=== PATIENT | male | born 1985 | race American Indian/Alaskan Native ===

== ENCOUNTER 2016-09-02 15:18 | Inpatient (IN) | payer OTHER ==
--- NOTE | 2016-09-02 16:05 | Emergency Department Report ---
Chief Complaint: Abdominal Pain Stated Complaint: ABD PAIN, HTN Time Seen by Provider: 09/02/16 16:01 - HPI History of Present Illness: 31 y/o male complain of abdominal pain x 1 day .pt complain of shortness of breath ,n/v /d .pt state is heart has been racing all day .pt state that he was hospitalized 3 weeks ago .pt current diaphoretic .pt denies any prior medical treatment .pt current on PD - ROS Review of Systems: per HPI - Exam Vital Signs: Vital Signs 09/02/16 15:45 Temperature 99.0 F Pulse Rate 83 Respiratory 22 Rate Blood Pressure 218/128 O2 Sat by Pulse 97 Oximetry Physical Exam: GENERAL: The patient is well-developed and well-nourished. Patient is in NAD. HENT: Normocephalic. Atraumatic. Patient has moist mucous membranes. Throat: No erythema, swelling or exudates. EYES: Extraocular motions are intact, PERRL NECK: Supple. No meningitic signs are noted. There is no adenopathy noted. CHEST/LUNGS: Clear to auscultation bilaterally. No wheezing, rales or rhonchi noted. There is no respiratory distress noted. HEART/CARDIOVASCULAR: Regular rate and rhythm. Normal S1 S2. No murmurs, rubs , clicks, or gallops. ABDOMEN: Abdomen distention noted . : Deferred. SKIN: pt diaphoretic . edema noted to lower extremities . NEURO: The patient is A&Ox3. The patient has no focal neurologic deficits. MUSCULOSKELETAL: There is no tenderness or deformity. There is no limitation range of motion. PSYCH: Pt has appropriate mood and affect. MSE screening note: Focused history and physical exam performed. Due to findings the following was ordered: ED Disposition for MSE Condition: Stable
[2016-09-02 16:44] LABS: Basophils % (Auto) 0.9 % (0.0-1.8); Eosinophils % (Auto) 0.4 % (0.0-4.3); Hematocrit 42.8 % (35.5-45.6); Hemoglobin 14.3 gm/dl (11.8-15.2); Mean Corpuscular HGB Conc 34 % (32-34); Mean Corpuscular Hemoglobin 30 pg (28-32); Mean Corpuscular Volume 88 fl (84-94); Platelet Count 350 K/mm3 (140-440); Red Blood Count 4.85 M/mm3 (3.65-5.03); Red Cell Distribution Width 13.3 % (13.2-15.2); White Blood Count 12.3 K/mm3 (4.5-11.0)
[2016-09-02 17:02] LABS: BUN/Creatinine Ratio 7.84; Calcium 6.9 mg/dL (8.4-10.2); Chloride 97.2 mmol/L (98-107); INR 0.98 (0.87-1.13); Potassium 5.1 mmol/L (3.6-5.0)
[2016-09-02 17:03] LABS: Creatine Kinase MB 3.3 ng/mL (0.0-4.0); Partial Thromboplastin Time 34.1 Sec. (24.2-36.6)
--- NOTE | 2016-09-02 21:02 | Emergency Department Report ---
ED General Adult HPI - General Chief complaint: Abdominal Pain Stated complaint: ABD PAIN, HTN Time Seen by Provider: 09/02/16 20:55 Source: patient Mode of arrival: Wheelchair Limitations: No Limitations - History of Present Illness Initial comments: Patient is a 31-year-old male with history of end-stage renal disease on peritoneal dialysis at home, atrial fibrillation on eliquis, hypertension, hyperlipidemia, morbid obesity presenting today because of abdominal pain and nausea vomiting. Patient states that at home his blood pressure was very high with systolic above 200s and he took clonidine 0.2 mg at home without improvement. He then started noticing some mild periumbilical abdominal pain and had multiple bouts of nonbloody nonbilious emesis. States he's had this in the past multiple times and its associated with his hypertension. He has had a peritoneal infection once with his dialysis in the past and he states this is nothing like that. He denies any current abdominal pain or nausea. Sates that he has checked with fluid in his abdomen and it is, clear 3. He took his metoprolol 100 mg, spironolactone, and 3 mg clonidine while being in the ER. Severity scale (0 -10): 3 - Related Data Home Medications Medication Instructions Recorded Confirmed Last Taken Calcitriol [Rocaltrol] 0.25 mcg PO QDAY 06/21/16 06/21/16 Unknown Calcium Acetate [Phoslo] 2 cap PO TID 06/21/16 06/21/16 Unknown Ergocalciferol [Vitamin D2] 1 cap PO QWEEK 06/21/16 06/21/16 Unknown Furosemide [Lasix TAB] 40 mg PO QDAY 06/21/16 06/28/16 06/27/16 16:00 Metoprolol [Lopressor TAB] 100 mg PO BID 06/21/16 06/28/16 06/28/16 08:00 NIFEdipine XL [Procardia Xl] 90 mg PO QDAY 06/21/16 06/28/16 06/27/16 16:00 Simvastatin [Zocor TAB] 40 mg PO QHS 06/21/16 06/28/16 06/27/16 11:45 Spironolactone [Aldactone] 50 mg PO BID 06/21/16 06/28/16 06/28/16 08:00 methylPREDNISolone [Medrol Dose 4 mg PO QDAY 06/21/16 06/21/16 Unknown Kaleb] Previous Rx's Medication Instructions Recorded Last Taken Type Ondansetron [Zofran TAB] 4 mg PO Q8HR PRN #20 tablet 06/28/16 Unknown Rx oxyCODONE /ACETAMINOPHEN [Percocet 1 tab PO Q4HR PRN #20 tab 06/28/16 Unknown Rx 5/325 mg] traMADol [Ultram 50 MG tab] 50 mg PO Q6HR PRN #20 tablet 06/28/16 Unknown Rx Apixaban [Eliquis] 5 mg PO Q12HR #60 tablet 08/01/16 Unknown Rx Clonidine HCl [Catapres] 0.3 mg PO BID #60 tablet 08/01/16 Unknown Rx Allergies Allergy/AdvReac Type Severity Reaction Status Date / Time No Known Allergies Allergy Verified 08/12/13 02:52 ED Review of Systems ROS: Stated complaint: ABD PAIN, HTN Other details as noted in HPI Comment: All other systems reviewed and negative Constitutional: denies: diaphoresis, fever, malaise, weakness ENT: denies: ear pain, congestion Respiratory: denies: cough, shortness of breath Cardiovascular: denies: chest pain Gastrointestinal: denies: abdominal pain, vomiting Skin: denies: rash Neurological: denies: headache ED Past Medical Hx - Past Medical History Hx Hypertension: Yes Hx Renal Disease: Yes (CKD STAGE 4) Hx Arthritis: Yes (GOUT) Hx Asthma: Yes Hx HIV: No Additional medical history: optic neuritis. - Surgical History Additional Surgical History: Recently diagnosed with optic neuritis. - Social History Smoking Status: Never Smoker - Medications Home Medications: Home Medications Medication Instructions Recorded Confirmed Last Taken Type Calcitriol [Rocaltrol] 0.25 mcg PO QDAY 06/21/16 06/21/16 Unknown History Calcium Acetate [Phoslo] 2 cap PO TID 06/21/16 06/21/16 Unknown History Ergocalciferol [Vitamin D2] 1 cap PO QWEEK 06/21/16 06/21/16 Unknown History Furosemide [Lasix TAB] 40 mg PO QDAY 06/21/16 06/28/16 06/27/16 16:00 History Metoprolol [Lopressor TAB] 100 mg PO BID 06/21/16 06/28/16 06/28/16 08:00 History NIFEdipine XL [Procardia Xl] 90 mg PO QDAY 06/21/16 06/28/16 06/27/16 16:00 History Simvastatin [Zocor TAB] 40 mg PO QHS 06/21/16 06/28/16 06/27/16 11:45 History Spironolactone [Aldactone] 50 mg PO BID 06/21/16 06/28/16 06/28/16 08:00 History methylPREDNISolone [Medrol Dose 4 mg PO QDAY 06/21/16 06/21/16 Unknown History Kaleb] Ondansetron [Zofran TAB] 4 mg PO Q8HR PRN #20 tablet 06/28/16 Unknown Rx oxyCODONE /ACETAMINOPHEN [Percocet 1 tab PO Q4HR PRN #20 tab 06/28/16 Unknown Rx 5/325 mg] traMADol [Ultram 50 MG tab] 50 mg PO Q6HR PRN #20 tablet 06/28/16 Unknown Rx Apixaban [Eliquis] 5 mg PO Q12HR #60 tablet 08/01/16 Unknown Rx Clonidine HCl [Catapres] 0.3 mg PO BID #60 tablet 08/01/16 Unknown Rx ED Physical Exam - General Limitations: No Limitations General appearance: alert - Head Head exam: Present: atraumatic - Eye Eye exam: Present: normal appearance - ENT ENT exam: Present: normal exam - Respiratory Respiratory exam: Present: normal lung sounds bilaterally. Absent: respiratory distress - Cardiovascular Cardiovascular Exam: Present: regular rate, normal rhythm - GI/Abdominal GI/Abdominal exam: Present: soft, distended. Absent: tenderness, guarding, rebound, rigid - External exam: Present: normal external exam ED Course Vital Signs 09/02/16 09/02/16 09/02/16 15:45 20:23 21:22 Temperature 99.0 F 98.3 F Pulse Rate 83 83 98 H Respiratory 22 20 Rate Blood Pressure 218/128 203/107 Blood Pressure 233/181 [Right] O2 Sat by Pulse 97 100 Oximetry 09/02/16 09/03/16 09/03/16 22:41 01:08 01:28 Temperature Pulse Rate 78 73 100 H Respiratory 16 16 Rate Blood Pressure 220/162 Blood Pressure 170/108 203/150 [Right] O2 Sat by Pulse 95 97 Oximetry 09/03/16 02:00 Temperature Pulse Rate 79 Respiratory 16 Rate Blood Pressure Blood Pressure 197/140 [Right] O2 Sat by Pulse 95 Oximetry - Reevaluation(s) Reevaluation #1: 09/02/16 22:44 Pressure improved to 170s over 110s after 20 mg IV labetalol. Repeat examination abdomen still nontender. However patient is requesting some pain medication. 09/02/16 22:45 Reevaluation #2: 09/03/16 01:21 His blood pressure increased again to a systolic of 200-210, patient is again having abdominal pain, ordered another dose of labetalol and morphine. Reevaluation #3: 09/03/16 01:40 Patient had a bout of emesis after receiving morphine. We'll give a dose of Zofran. ED Medical Decision Making - Lab Data Result diagrams: 09/02/16 16:20 09/02/16 16:20 - Medical Decision Making labs preordered, show hypocalcemia lactic acid ordered to look for ischemia of the abdomen labetalol IV 20 mg EKG shows normal sinus rhythm without any ST-T changes Labs show hypocalcemia. IV calcium ordered. That the patient has no abdominal tenderness, no fever and states that he has clear fluid from his abdomen the likelihood of a peritonitis is low. A lactic acid was also drawn to look for any signs of mesenteric ischemia. The lactic acid was normal. No signs of end organ damage. Will observe for some time and do a CT scan of the abdomen and pelvis Critical care attestation.: If time is entered above; I have spent that time in minutes in the direct care of this critically ill patient, excluding procedure time. ED Disposition Clinical Impression: Hypertensive urgency, Hypocalcemia, Hyperkalemia Abdominal pain Qualifiers: Abdominal location: upper abdomen, unspecified Qualified Code(s): R10.10 - Upper abdominal pain, unspecified Disposition: OP ADMITTED IP TO THIS HOSP Is pt being admited?: Yes Does the pt Need Aspirin: No Condition: Serious Referrals: PRIMARY CARE,MD [Primary Care Provider] - 3-5 Days Time of Disposition: 02:10 (Spoke to Dr. Pacheco, will admit)
[2016-09-02] MEDS ORDERED: NORMODYNE IV ONE (21:07)
[2016-09-02] MEDS ORDERED: CALCIUM CHLORIDE IVP ONE (21:13)
[2016-09-02] MEDS ORDERED: CALCIUM GLUCONATE 1,000 MG in NACL 0.9% 100 ML IV ONE (21:55)
[2016-09-02] MEDS ORDERED: CALCIUM CHLORIDE IV ONE (22:00)
[2016-09-02] MEDS ORDERED: PERCOCET 5/325 PO ONE (22:27)
--- NOTE | 2016-09-02 22:52 | Admit Criteria Form ---
Admission Criteria Documentation: ABDOMINAL PAIN Clinical Indications for Admission to Inpatient Care (Place 'X' for any and all applicable criteria): Admission is indicated for ANY ONE of the following(1)(2)(3)(4)(5): [ ]I. Inpatient admission required rather than observation care (Also use Abdominal Pain: Observation Care, as appropriate) because of ANY ONE of the following: [ ]a) Severe pain requiring acute inpatient management [ ]b) Identification of etiology/finding that requires inpatient care (eg, aortic dissection, free air) [ ]c) Absent bowel sounds with complete ileus(6) [ ]d) Suspected toxic megacolon [ ]e) Severe electrolyte abnormalities requiring inpatient care [ ]f) High fever or infection requiring inpatient admission as indicated by ANY ONE of following(7)(8): [ ] i) Appropriate outpatient or observational care antimicrobial treatment unavailable, not effective, or not feasible [ ] ii) Documented bacteremia [ ] iii) Temperature > 104.9 degrees F (oral) [ ] iv) T >103.1 F (oral) or < 96.8 F(rectal) that does not respond to all emergency treatment measures [ ]g) Signs of intestinal obstruction [B] [ ]h) Hemodynamic instability [ ]i) IV fluid to replace significant ongoing losses (greater than 3 L/m2 per day) (12)(13) [ ]j) Percutaneous or open drainage (eg, abscess, biliary tract ) procedures [ ]k) Parenteral nutrition regimen that must be implemented on inpatient basis [ ]l) Other condition,treatment or monitoring requiring inpatient admission. [ ]II. Peritoneal signs present [ ]III. Surgery needed that cannot be performed on an ambulatory basis. [ ]IV. Evaluation requires patient to not eat or drink for extended period ( eg, more than 24 hours). [ ]V. Contraindications and/or Inappropriate clinical situations for Observational Care in patients with abdominal pain, when ANY ONE of the following is required: [ ]a) Thorough evaluation is required to prevent catastrophic events due to delays in diagnosing (e.g.Mesenteric ischemia) 1,3 [ ]b) Patient with severe pathology or with chronic symptoms unlikely to improve in the ED stay (3) [X ]. General contraindications and/or Inappropriate clinical situations for Observational Care in patients with abdominal pain, when ANY ONE of the following is required: [ ]a) Prediction of prolongation of LOS based on ANY ONE of the following may be considered as a contraindication for observational care 2, 3, 4, 5, 6, 7, 8, 9, 10, 11 [ ]i) Age > 65 yrs. [ ]ii) Patient arriving by ambulance [ ]iii) Patient with high acuity [ ]iv) Patient requiring vital sign monitoring [ ]v) Patient on IV medication [X ]b) Systolic blood pressures 180mmHg 3,12 [ ]c) Patient with altered mental status including delirium and other alteration of consciousness, (3) [ ]d) Patient whose discharge disposition will be to a penitentiary home or rehabilitation home should not be managed in Emergency Department Observation Unit. CMS rule requires 3 days hospital stay before such placement.3,13 [ ]e) Patient with failure to thrive due to broad array of etiologies 3,16,17 [ ]f) Inability to ambulate 3,14 Extended stay beyond goal length of stay may be needed for(2)(3): [ ]a) Persistent abdominal pain with suspected intra-abdominal process [ ]b) Diagnosed condition requiring continued stay (e.g., pancreatitis, complicated diverticulitis) [ ]c) Surgery (e.g., colectomy) The original [facility] content created by [employer] has been revised. The portions of the content which have been revised are identified through the use of italic text or in bold, and [facility] has neither reviewed nor approved the modified material.All other unmodified content is copyright [facility]. Please see references footnoted in the original [facility] edition 2016 Admission Criteria Met: Yes
--- NOTE | 2016-09-03 00:38 | Cat Scan Report ---
FINAL REPORT EXAM: CT ABDOMEN PELVIS WO CON HISTORY: abd pain, peritoneal dialysis TECHNIQUE: CT abdomen and pelvis without contrast. Multiplanar reformations. PRIORS: 11/26/2015 FINDINGS: Solid organ evaluation limited from lack of IV contrast. Bowel evaluation limited from lack of oral contrast. Bibasilar atelectasis. No free air seen. Liver shows no significant abnormality. Normal-appearing biliary tree and gallbladder. Spleen shows no significant abnormality. Moderate ascites noted. Small pericardial effusion. Moderate cardiac enlargement. Adrenal glands show no significant abnormality. Kidneys show no significant abnormality. Pancreas shows no significant abnormality. Abdominal aorta is non-aneurysmal. There is a peritoneal dialysis catheter in the pelvis. No bowel obstruction. Appendix is not seen. No ureteral calculus seen on either side. IMPRESSION: 1. Moderate ascites presumably related to peritoneal dialysis. Peritoneal dialysis catheter noted in the pelvis. 2. Small pericardial effusion. Moderate cardiac enlargement.
[2016-09-03] MEDS ORDERED: NORMODYNE IV ONE (01:16)
[2016-09-03] MEDS ORDERED: MORPHINE IV ONE ×2 (01:20→05:51)
[2016-09-03 01:39] LABS: Albumin/Globulin Ratio 0.9 %; Alkaline Phosphatase 59 units/L (35-129); Bilirubin,Total 0.2 mg/dL (0.1-1.2); Total Protein 6.2 g/dL (6.3-8.2)
[2016-09-03] MEDS ORDERED: ZOFRAN IV ONE (01:39)
[2016-09-03 01:40] LABS: Alanine Aminotransferase < 5 units/L (7-56); Bilirubin,Direct < 0.2 mg/dL (0-0.2)
--- NOTE | 2016-09-03 02:42 | History and Physical Report ---
History of Present Illness Date of examination: 09/03/16 Date of admission: 09/03/15 Chief complaint: Abdominal pain History of present illness: Patient is a 31-year-old male with history of end-stage renal disease on peritoneal dialysis at home, atrial fibrillation on eliquis, hypertension, hyperlipidemia, morbid obesity presenting today because of abdominal pain and nausea vomiting. Patient stated that at home his blood pressure was very high with systolic above 200s and he took clonidine 0.2 mg at home without improvement. He then started noticing some mild periumbilical abdominal pain and had multiple bouts of nonbloody nonbilious emesis. Stated he's had this in the past multiple times and its associated with his hypertension. He has had a peritoneal infection once with his dialysis in the past and he states this is nothing like that. He denies any current abdominal pain or nausea. The PD catheter is not cloudy. He took his metoprolol 100 mg, spironolactone, and .3 mg clonidine while being in the ER. REVIEW OF SYSTEMS: GENERAL: no weight change, no fatigue, no fever HEAD: no head ache EYES: no blurry vision, no acute visual loss EARS: no hearing loss, no discharge, no earache NOSE: no stuffiness, no sneezing, no discharge MOUTH, THROAT AND NECK: no bleeding gums, no sore throat, no swollen neck CARDIAC: no palpitations, no dyspnea on exertion, no orthopnea, no PND, no edema , no chest pain RESPIRATORY: no shortness of breath, no wheeze, no cough, no sputum, no hemoptysis, no asthma GI: no decreased appetite, no dysphagia, no diarrhea, no constipation URINARY: no change in frequency, no urgency, no polyuria, no hematuria, no incontinence MUSCULOSKELETAL: no muscle weakness, no pain, no joint stiffness NEUROLOGIC: no loss of sensation/numbness, no tingling, no tremors, no weakness/ paralysis HEMATOLOGIC: no anemia, no easy bruising SKIN: no rashes ENDOCRINE: no heat/cold intolerance, no polyuria, no polydipsia, no thyroid problems, no diabetes PSYCHIATRIC: no anxiety, no depression, no suicidal ideations Past History Past Medical History: hypertension, renal failure, other (obesity) Past Surgical History: Other (PD catheter placement) Social history: full code. denies: smoking, alcohol abuse, prescription drug abuse, IV drug use Family history: hypertension Medications and Allergies Allergies Allergy/AdvReac Type Severity Reaction Status Date / Time No Known Allergies Allergy Verified 08/12/13 02:52 Home Medications Medication Instructions Recorded Confirmed Last Taken Type Calcitriol [Rocaltrol] 0.25 mcg PO QDAY 06/21/16 06/21/16 Unknown History Calcium Acetate [Phoslo] 2 cap PO TID 06/21/16 06/21/16 Unknown History Ergocalciferol [Vitamin D2] 1 cap PO QWEEK 06/21/16 06/21/16 Unknown History Furosemide [Lasix TAB] 40 mg PO QDAY 06/21/16 06/28/16 06/27/16 16:00 History Metoprolol [Lopressor TAB] 100 mg PO BID 06/21/16 06/28/16 06/28/16 08:00 History NIFEdipine XL [Procardia Xl] 90 mg PO QDAY 06/21/16 06/28/16 06/27/16 16:00 History Simvastatin [Zocor TAB] 40 mg PO QHS 06/21/16 06/28/16 06/27/16 11:45 History Spironolactone [Aldactone] 50 mg PO BID 06/21/16 06/28/16 06/28/16 08:00 History methylPREDNISolone [Medrol Dose 4 mg PO QDAY 06/21/16 06/21/16 Unknown History Kaleb] Ondansetron [Zofran TAB] 4 mg PO Q8HR PRN #20 tablet 06/28/16 Unknown Rx oxyCODONE /ACETAMINOPHEN [Percocet 1 tab PO Q4HR PRN #20 tab 06/28/16 Unknown Rx 5/325 mg] traMADol [Ultram 50 MG tab] 50 mg PO Q6HR PRN #20 tablet 06/28/16 Unknown Rx Apixaban [Eliquis] 5 mg PO Q12HR #60 tablet 08/01/16 Unknown Rx Clonidine HCl [Catapres] 0.3 mg PO BID #60 tablet 08/01/16 Unknown Rx Active Meds: Active Medications Apixaban (Eliquis) 5 mg PO Q12HR EZRA Calcitriol (Rocaltrol) 0.25 mcg PO QDAY EZRA Calcium Acetate (Phoslo) mg PO TID EZRA Ergocalciferol (Vitamin D2) unit PO QWEEK EZRA Furosemide (Lasix) 40 mg PO QDAY EZRA Metoprolol Tartrate (Lopressor) 100 mg PO BID EZRA Miscellaneous Medication (Clonidine Hcl [Catapres]) 0.3 mg PO BID EZRA Nifedipine (Procardia Xl) 90 mg PO QDAY EZRA Oxycodone/Acetaminophen (Percocet 5/325) 1 tab PO Q4HR PRN PRN Reason: Pain , Severe (7-10) Simvastatin (Zocor) 40 mg PO QHS EZRA Spironolactone (Aldactone) 50 mg PO BID EZRA Exam - Physical Exam Narrative exam: Not in cardiopulmonary distress. The patient is obese. Vital signs as documented. Head exam is unremarkable. No scleral icterus . Neck is without jugular venous distension, thyromegaly, or carotid bruits. Lungs are clear to auscultation. Cardiac exam reveals regular rate and Rhythm. First and second heart sounds normal. No murmurs, rubs or gallops. Abdominal exam reveals normal bowel sounds, no masses, no organomegaly and no aortic enlargement. Extremities are nonedematous and both femoral and pedal pulses are normal. [place]: Alert and oriented 3. No focal weakness. - Constitutional Vitals: Temp Pulse Resp BP Pulse Ox 98.3 F 79 16 197/140 95 09/02/16 20:23 09/03/16 02:00 09/03/16 02:00 09/03/16 02:00 09/03/16 02:00 Results - Labs CBC & Chem 7: 09/02/16 16:20 09/02/16 16:20 Labs: Laboratory Last Values WBC 12.3 K/mm3 (4.5-11.0) H 09/02/16 16:20 RBC 4.85 M/mm3 (3.65-5.03) 09/02/16 16:20 Hgb 14.3 gm/dl (11.8-15.2) 09/02/16 16:20 Hct 42.8 % (35.5-45.6) 09/02/16 16:20 MCV 88 fl (84-94) 09/02/16 16:20 MCH 30 pg (28-32) 09/02/16 16:20 MCHC 34 % (32-34) 09/02/16 16:20 RDW 13.3 % (13.2-15.2) 09/02/16 16:20 Plt Count 350 K/mm3 (140-440) 09/02/16 16:20 Lymph % (Auto) 12.8 % (13.4-35.0) L 09/02/16 16:20 [place] % (Auto) 6.4 % (0.0-7.3) 09/02/16 16:20 Eos % (Auto) 0.4 % (0.0-4.3) 09/02/16 16:20 Baso % (Auto) 0.9 % (0.0-1.8) 09/02/16 16:20 Lymph # 1.6 K/mm3 (1.2-5.4) 09/02/16 16:20 [place] # 0.8 K/mm3 (0.0-0.8) 09/02/16 16:20 Eos # 0.1 K/mm3 (0.0-0.4) 09/02/16 16:20 Baso # 0.1 K/mm3 (0.0-0.1) 09/02/16 16:20 Seg Neutrophils % 79.5 % (40.0-70.0) H 09/02/16 16:20 Seg Neutrophils # 9.8 K/mm3 (1.8-7.7) H 09/02/16 16:20 PT 12.9 Sec. (12.2-14.9) 09/02/16 16:20 INR 0.98 (0.87-1.13) 09/02/16 16:20 APTT 34.1 Sec. (24.2-36.6) 09/02/16 16:20 Sodium 139 mmol/L (137-145) 09/02/16 16:20 Potassium 5.1 mmol/L (3.6-5.0) H 09/02/16 16:20 Chloride 97.2 mmol/L (98-107) L 09/02/16 16:20 Carbon Dioxide 24 mmol/L (22-30) 09/02/16 16:20 Anion Gap 23 mmol/L 09/02/16 16:20 BUN 62 mg/dL (9-20) H 09/02/16 16:20 Creatinine 7.9 mg/dL (0.8-1.5) H 09/02/16 16:20 Estimated GFR 10 ml/min 09/02/16 16:20 BUN/Creatinine Ratio 7.84 % 09/02/16 16:20 Glucose 138 mg/dL (75-100) H 09/02/16 16:20 Lactic Acid 0.9 mmol/L (0.7-2.0) 09/02/16 21:27 Calcium 6.9 mg/dL (8.4-10.2) L 09/02/16 16:20 Total Bilirubin 0.2 mg/dL (0.1-1.2) 09/02/16 16:20 Direct Bilirubin < 0.2 mg/dL (0-0.2) 09/02/16 16:20 Indirect Bilirubin 0.0 mg/dL 09/02/16 16:20 AST 12 units/L (5-40) 09/02/16 16:20 ALT < 5 units/L (7-56) L 09/02/16 16:20 Alkaline Phosphatase 59 units/L (35-129) 09/02/16 16:20 Total Creatine Kinase 133 units/L (55-170) 09/02/16 16:20 CK-MB (CK-2) 3.3 ng/mL (0.0-4.0) 09/02/16 16:20 CK-MB (CK-2) Rel Index 2.4 (0-4) 09/02/16 16:20 Troponin T 0.013 ng/mL (0.00-0.029) 09/02/16 16:20 Total Protein 6.2 g/dL (6.3-8.2) L 09/02/16 16:20 Albumin 3.0 g/dL (3.9-5) L 09/02/16 16:20 Albumin/Globulin Ratio 0.9 % 09/02/16 16:20 Lipase 71 units/L (13-60) H 09/02/16 16:20 - Imaging and Cardiology CT scan - abdomen: image reviewed (moderate ascites, PD cathetr in place) US - abdomen: image reviewed Assessment and Plan Assessment and plan: Hypertensive urgency - restart his home medications - Hydralazine PRN Abdominal Pain - CT abdomen and pelvis normal - Pain control ESRD on PD - Nephrology consult Paroxysmal A.fib - continue anticoagulation - Continue his home meds - Cardiology recently evaluated him Advance Directives: Yes VTE prophylaxis?: Chemical Plan of care discussed with patient/family: Yes
[2016-09-03] MEDS ORDERED: LOPRESSOR ONE ×2 (03:18→07:38)
[2016-09-03] MEDS: APRESOLINE IV PRN (03:45)
[2016-09-03] MEDS: PERCOCET 5/325 PO PRN ×3 (04:15→21:53)
[2016-09-03] MEDS: LOPRESSOR PO SCH ×4 (04:46→21:50)
[2016-09-03] MEDS ORDERED: HEPARIN SUB-Q SCH (06:00)
[2016-09-03] MEDS ORDERED: CARDENE DRIP 40 MG/200 ML 200 ML ONE (06:47)
[2016-09-03] MEDS: CARDENE DRIP 40 MG/200 ML 200 ML IV SCH (07:03)
[2016-09-03] MEDS ORDERED: LASIX ONE (07:37)
[2016-09-03] MEDS ORDERED: CATAPRES ONE ×2 (07:38)
[2016-09-03] MEDS: CATAPRES PO SCH ×4 (07:43→09:32)
[2016-09-03] MEDS: LASIX PO SCH ×2 (07:44→09:31)
[2016-09-03] MEDS: ALDACTONE PO SCH ×2 (10:00→21:49)
[2016-09-03] MEDS: ELIQUIS PO SCH ×2 (10:00→21:51)
--- NOTE | 2016-09-03 10:37 | Event Note ---
Date: 09/03/16 Patient seen and examined. This is a follow-up from an admission earlier this morning. Will continue plan as outlined in H&P.
--- NOTE | 2016-09-03 11:02 | Consultation ---
History of Present Illness - Reason for Consult Consult date: 09/03/16 end stage renal disease - History of Present Illness patient with h/o ESRD on PD currently on CAPD times a day, came to the ED for SOB, heart racing, abdominal pain with nausea and vomiting, patient mentioned having similar sx in the past when his blood pressure is high, he said he is complaint with his meds, in the ED he was noted to have very high BP and was started on Nicardin gtt, when seen he started to feel better but remains to have abd pain. renal consult requested for PD management Past History Past Medical History: ESRD, hypertension, renal failure, other (obesity) Past Surgical History: Other (PD catheter placement) Social history: full code. denies: smoking, alcohol abuse, prescription drug abuse, IV drug use Family history: hypertension Medications and Allergies Allergies Allergy/AdvReac Type Severity Reaction Status Date / Time No Known Allergies Allergy Verified 08/12/13 02:52 Home Medications Medication Instructions Recorded Confirmed Last Taken Type Calcitriol [Rocaltrol] 0.25 mcg PO QDAY 06/21/16 09/03/16 09/02/16 History Calcium Acetate [Phoslo] 2 cap PO TID 06/21/16 09/03/16 09/02/16 History Ergocalciferol [Vitamin D2] 1 cap PO QWEEK 06/21/16 09/03/16 09/02/16 History Furosemide [Lasix TAB] 40 mg PO QDAY 06/21/16 09/03/16 09/02/16 History Metoprolol [Lopressor TAB] 100 mg PO BID 06/21/16 09/03/16 09/02/16 History NIFEdipine XL [Procardia Xl] 90 mg PO QDAY 06/21/16 09/03/16 09/02/16 History Simvastatin [Zocor TAB] 40 mg PO QHS 06/21/16 09/03/16 09/02/16 History Spironolactone [Aldactone] 50 mg PO BID 06/21/16 09/03/16 09/02/16 History methylPREDNISolone [Medrol Dose 4 mg PO QDAY 06/21/16 09/03/16 Unknown History Kaleb] Ondansetron [Zofran TAB] 4 mg PO Q8HR PRN #20 tablet 06/28/16 09/03/16 09/02/16 Rx oxyCODONE /ACETAMINOPHEN [Percocet 1 tab PO Q4HR PRN #20 tab 06/28/16 09/03/16 Unknown Rx 5/325 mg] Apixaban [Eliquis] 5 mg PO Q12HR #60 tablet 08/01/16 09/03/16 09/02/16 Rx Clonidine HCl [Catapres] 0.3 mg PO BID #60 tablet 08/01/16 09/03/16 09/02/16 Rx Active Meds: Active Medications Apixaban (Eliquis) 5 mg PO Q12HR [facility] Calcitriol (Rocaltrol) 0.25 mcg PO QDAY [facility]ZRA Calcium Acetate (Phoslo) 1,334 mg PO TIDWM EZRA Ergocalciferol (Vitamin D2) 50,000 unit PO Mo EZRA Furosemide (Lasix) 40 mg PO QDAY [facility] Last Admin: 09/03/16 09:31 Dose: Not Given Hydralazine HCl (Apresoline) 20 mg IV Q4H PRN PRN Reason: Hypertension Last Admin: 09/03/16 03:45 Dose: 20 mg Nicardipine/Sodium Chloride (Cardene Drip 40 Mg/200 Ml) 200 mls @ 25 mls/hr IV TITR EZRA; 5 MG/HR PRN Reason: Protocol Last Titration: 09/03/16 10:05 Dose: 7.5 mg/hr Lactulose (Cephulac) 20 gm PO Q6HR [facility] Metoprolol Tartrate (Lopressor) 100 mg PO BID [facility] Last Admin: 09/03/16 09:32 Dose: Not Given Nifedipine (Procardia Xl) 90 mg PO QDAY [facility] Oxycodone/Acetaminophen (Percocet 5/325) 1 tab PO Q4HR PRN PRN Reason: Pain , Severe (7-10) Last Admin: 09/03/16 04:15 Dose: 1 tab Peritoneal Dialysis Solution (Dianeal Low Calcium W/2.5% Dextrose) 2,000 ml IP Q6HR [facility] Simvastatin (Zocor) 40 mg PO QHS [facility] Spironolactone (Aldactone) 50 mg PO BID [facility] Review of Systems All systems: negative (abd pain, SOB, nausea and vomiting) Exam - Vital Signs Vital signs: Vital Signs Temp Pulse Resp BP Pulse Ox 99.0 F 83 22 218/128 97 09/02/16 15:45 09/02/16 15:45 09/02/16 15:45 09/02/16 15:45 09/02/16 15:45 - General Appearance General appearance: well-developed, well-nourished, obese EENT: ATNC, PERRL, mucous membranes moist Neck: Present: neck supple. Absent: Bruit Respiratory: Clear to Ascultation Heart: tachycardia Gastrointestinal: Present: normoactive bowel sounds, tenderness, obese. Absent : distended Integumentary: no rash, warm and dry Neurologic: no focal deficit, no asterixis, alert and oriented x3 Musculoskeletal: Present: other (no edema in BLE) Psychiatric: mood/affect appropriate, cooperative Results - Lab Results 09/02/16 16:20 09/02/16 16:20 Most recent lab results Calcium 6.9 mg/dL (8.4-10.2) L 09/02/16 16:20 Assessment and Plan (1) ESRD on PD secondary to HTN nephrosclerosis will restart PD with 2.5% dextrose 2000 cc 4 times a day will send PD fluid for cell count, cultures, and gram stain to r/o peritonitis mentions h/o constipation, will start lactulose 20 g Q6H renally dose mds strict I&O daily weights (2) HTN urgency cont nicardin gtt restarted on aldactone, lasic and metoprolol would avoud clonidine use, possible compliance issues, sudden stop of clonidine may cause rebound hypertension would restart Nifedipine soon to help tapering down nicardin gtt (3) Secondary hyperparathyroidsim will check phos in AM cont calcitriol (4) abdominal pain PD fluid studies as above Lactulose for constipation as above
[2016-09-03] MEDS: CEPHULAC PO SCH ×2 (13:20→18:25)
[2016-09-03] MEDS: PHOSLO PO SCH ×2 (13:20→16:58)
[2016-09-03] MEDS: DIANEAL LOW CALCIUM W/2.5% DEXTROSE IP SCH ×2 (13:33→18:20)
--- NOTE | 2016-09-03 14:04 | Consultation ---
History of Present Illness Consult date: 09/03/16 Reason for consult: obstructive sleep apnea, other (Abdominal pain, nausea, vomiying.) History of present illness: Patient is a 31-year-old male Morbidly Obese with history of end-stage renal disease on peritoneal dialysis at home, atrial fibrillation on eliquis, hypertension, hyperlipidemia presented to the emergency room today with a complaint of abdominal pain and nausea vomiting. Patients blood pressure running high at home. Patient took Clonidine with out much improvement. He then started noticing some mild periumbilical abdominal pain and had multiple bouts of no emesis. Stated he's had this in the past multiple times and its associated with his hypertension. He has had a peritoneal infection once with his dialysis in the past and he states this is nothing like that. The PD catheter is not cloudy. He took his metoprolol 100 mg, spironolactone, and .3 mg clonidine while being in the ER. Patient started on cardene drip. Patients blood pressure coming down.Patient also receiving peritoneal dialysis. Patient denies Adominal pain or nausea at this time. Patient resting on room air. O2 satuaration. 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 Patient has history of sleep apnea. He does not use CPAP at home. Past History Past Medical History: ESRD, hypertension, renal failure, other (obesity) Past Surgical History: Other (PD catheter placement) Social history: full code. denies: smoking, alcohol abuse, prescription drug abuse, IV drug use Family history: hypertension Medications and Allergies Allergies Allergy/AdvReac Type Severity Reaction Status Date / Time No Known Allergies Allergy Verified 08/12/13 02:52 Home Medications Medication Instructions Recorded Confirmed Last Taken Type Calcitriol [Rocaltrol] 0.25 mcg PO QDAY 06/21/16 09/03/16 09/02/16 History Calcium Acetate [Phoslo] 2 cap PO TID 06/21/16 09/03/16 09/02/16 History Ergocalciferol [Vitamin D2] 1 cap PO QWEEK 06/21/16 09/03/16 09/02/16 History Furosemide [Lasix TAB] 40 mg PO QDAY 06/21/16 09/03/16 09/02/16 History Metoprolol [Lopressor TAB] 100 mg PO BID 06/21/16 09/03/16 09/02/16 History NIFEdipine XL [Procardia Xl] 90 mg PO QDAY 06/21/16 09/03/16 09/02/16 History Simvastatin [Zocor TAB] 40 mg PO QHS 06/21/16 09/03/16 09/02/16 History Spironolactone [Aldactone] 50 mg PO BID 06/21/16 09/03/16 09/02/16 History methylPREDNISolone [Medrol Dose 4 mg PO QDAY 06/21/16 09/03/16 Unknown History Kaleb] Ondansetron [Zofran TAB] 4 mg PO Q8HR PRN #20 tablet 06/28/16 09/03/16 09/02/16 Rx oxyCODONE /ACETAMINOPHEN [Percocet 1 tab PO Q4HR PRN #20 tab 06/28/16 09/03/16 Unknown Rx 5/325 mg] Apixaban [Eliquis] 5 mg PO Q12HR #60 tablet 08/01/16 09/03/16 09/02/16 Rx Clonidine HCl [Catapres] 0.3 mg PO BID #60 tablet 08/01/16 09/03/16 09/02/16 Rx Active Meds: Active Medications Apixaban (Eliquis) 5 mg PO Q12HR [facility] Calcitriol (Rocaltrol) 0.25 mcg PO QDAY [facility] Calcium Acetate (Phoslo) 1,334 mg PO TIDWM [facility] Last Admin: 09/03/16 13:20 Dose: 1,334 mg Ergocalciferol (Vitamin D2) 50,000 unit PO Mo [facility] Furosemide (Lasix) 40 mg PO QDAY [facility] Last Admin: 09/03/16 09:31 Dose: Not Given Hydralazine HCl (Apresoline) 20 mg IV Q4H PRN PRN Reason: Hypertension Last Admin: 09/03/16 03:45 Dose: 20 mg Nicardipine/Sodium Chloride (Cardene Drip 40 Mg/200 Ml) 200 mls @ 25 mls/hr IV TITR [facility]ZRA; 5 MG/HR PRN Reason: Protocol Last Titration: 09/03/16 11:52 Dose: 15 mg/hr Lactulose (Cephulac) 20 gm PO Q6HR [facility] Last Admin: 09/03/16 13:20 Dose: 20 gm Metoprolol Tartrate (Lopressor) 100 mg PO BID [facility] Last Admin: 09/03/16 09:32 Dose: Not Given Nifedipine (Procardia Xl) 90 mg PO QDAY [facility] Oxycodone/Acetaminophen (Percocet 5/325) 1 tab PO Q4HR PRN PRN Reason: Pain , Severe (7-10) Last Admin: 09/03/16 04:15 Dose: 1 tab Peritoneal Dialysis Solution (Dianeal Low Calcium W/2.5% Dextrose) 2,000 ml IP Q6HR [facility] Last Admin: 09/03/16 13:33 Dose: 2,000 ml Simvastatin (Zocor) 40 mg PO QHS [facility] Spironolactone (Aldactone) 50 mg PO BID [facility] Review of Systems All systems: negative Physical Examination Vital signs: Vital Signs Temp Pulse Resp BP Pulse Ox 99.0 F 83 22 218/128 97 09/02/16 15:45 09/02/16 15:45 09/02/16 15:45 09/02/16 15:45 09/02/16 15:45 General appearance: no acute distress, alert Eyes: non-icteric ENT: oropharynx moist Neck: supple, no JVD Cardiovascular: regular rate and rhythm Gastrointestinal: normoactive bowel sounds, soft, non-tender Integumentary: normal Extremities: no cyanosis, other (Trace edema.) Musculoskeletal: no deformities Gait: other (Can not assess at this time.) normal mental status, non-focal exam, pupils equal and round, CN II-XII normal mood appropriate Results - Laboratory Findings CBC and BMP: 09/02/16 16:20 09/02/16 16:20 PT/INR, D-dimer PT 12.9 Sec. (12.2-14.9) 09/02/16 16:20 INR 0.98 (0.87-1.13) 09/02/16 16:20 Assessment and Plan Patient is a 31-year-old male Morbidly Obese with history of end-stage renal disease on peritoneal dialysis at home, atrial fibrillation on eliquis, hypertension, hyperlipidemia presented to the emergency room today with a complaint of abdominal pain and nausea vomiting. Patients blood pressure running high at home. Patient took Clonidine with out much improvement. He then started noticing some mild periumbilical abdominal pain and had multiple bouts of no emesis. Stated he's had this in the past multiple times and its associated with his hypertension. He has had a peritoneal infection once with his dialysis in the past and he states this is nothing like that. The PD catheter is not cloudy. He took his metoprolol 100 mg, spironolactone, and .3 mg clonidine while being in the ER. Patient started on cardene drip. Patients blood pressure coming down.Patient also receiving peritoneal dialysis. Patient denies Adominal pain or nausea at this time. Patient resting on room air. O2 satuaration. 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 Patient has history of sleep apnea. He does not use CPAP at home. I spent critical care time of 55 minutesin obtaining history, reviewing the chart, review the labs, talking to the nursing staff and work out plan of treatment. - Patient Problems (1) Abdominal pain Current Visit: Yes Status: Acute Qualifiers: Abdominal location: upper abdomen, unspecified Qualified Code(s): R10.10 - Upper abdominal pain, unspecified Plan to address problem: No complaint of abdominal pain now. Patient receiving Peritoneal dialysis. (2) Accelerated hypertension Current Visit: No Status: Acute Plan to address problem: Patient is on cardene drip Mangement as per primary care (3) Atrial fibrillation Current Visit: No Status: Acute Plan to address problem: Patient is on Apixaban. Management as per primary and cardiology. (4) Morbid obesity with BMI of 40.0-44.9, adult Current Visit: No Status: Chronic Plan to address problem: Consult Nutrition for weight reduction diet. (5) ESRD on peritoneal dialysis Current Visit: No Status: Chronic Plan to address problem: Patient is on Peritoneal dialysis. Consult nephrology. (6) Obstructive sleep apnea Current Visit: Yes Status: Acute Plan to address problem: Place him empirically on CPAP during sleep 10 cm H2O pressure.
[2016-09-03] MEDS: ROCALTROL PO SCH (17:01)
[2016-09-03 17:05] LABS: Reactive Lymph Body Fluid 0 %
[2016-09-03 17:06] LABS: Basophils Body Fluid 0 %
[2016-09-03] MEDS ORDERED: DILAUDID IV PRN (18:04)
[2016-09-03] MEDS ORDERED: ZOFRAN IV PRN (18:05)
[2016-09-03] MEDS: ZOCOR PO SCH (21:49)
[2016-09-04] MEDS: DIANEAL LOW CALCIUM W/2.5% DEXTROSE IP SCH ×4 (00:13→17:46)
[2016-09-04] MEDS: CARDENE DRIP 40 MG/200 ML 200 ML IV SCH ×3 (00:17→12:32)
[2016-09-04] MEDS: PERCOCET 5/325 PO PRN ×2 (02:38→12:31)
[2016-09-04] MEDS: CEPHULAC PO SCH ×6 (03:02→18:28)
[2016-09-04 04:53] LABS: Basophils % (Auto) 0.4 % (0.0-1.8); Eosinophils % (Auto) 5.1 % (0.0-4.3); Hematocrit 43.8 % (35.5-45.6); Mean Corpuscular HGB Conc 32 % (32-34); Mean Corpuscular Hemoglobin 29 pg (28-32); Mean Corpuscular Volume 90 fl (84-94); Platelet Count 281 K/mm3 (140-440); Red Blood Count 4.89 M/mm3 (3.65-5.03); Red Cell Distribution Width 13.5 % (13.2-15.2); White Blood Count 12.1 K/mm3 (4.5-11.0)
[2016-09-04 05:11] LABS: BUN/Creatinine Ratio 8.11; Calcium 6.8 mg/dL (8.4-10.2); Chloride 97.5 mmol/L (98-107); Potassium 4.6 mmol/L (3.6-5.0)
[2016-09-04 08:01] LABS: Basophils % (Auto) 0.5 % (0.0-1.8); Eosinophils % (Auto) 4.5 % (0.0-4.3); Hematocrit 42.2 % (35.5-45.6); Hemoglobin 13.5 gm/dl (11.8-15.2); Mean Corpuscular HGB Conc 32 % (32-34); Mean Corpuscular Hemoglobin 29 pg (28-32); Mean Corpuscular Volume 90 fl (84-94); Platelet Count 277 K/mm3 (140-440); Red Cell Distribution Width 13.6 % (13.2-15.2); White Blood Count 12.3 K/mm3 (4.5-11.0)
[2016-09-04] MEDS: PHOSLO PO SCH ×4 (08:02→18:28)
[2016-09-04 08:05] LABS: BUN/Creatinine Ratio 7.8; Calcium 6.6 mg/dL (8.4-10.2); Chloride 97.2 mmol/L (98-107); Phosphorous 6.8 mg/dL (2.5-4.5); Potassium 4.5 mmol/L (3.6-5.0)
[2016-09-04] MEDS: LASIX PO SCH (09:32)
[2016-09-04] MEDS: ALDACTONE PO SCH ×2 (09:32→22:48)
[2016-09-04] MEDS: LOPRESSOR PO SCH ×2 (09:33→22:47)
[2016-09-04] MEDS: ELIQUIS PO SCH ×2 (09:33→22:51)
[2016-09-04] MEDS: ROCALTROL PO SCH (10:53)
--- NOTE | 2016-09-04 11:13 | Gastroenterology Consultation ---
History of Present Illness - Reason for Consult Consult date: 09/04/16 Abdominal pain, nausea/vomiting Requesting physician: TARAS SERVIN - History of Present Illness Asked to evaluate this pleasant 31yo man for abdominal pain, nausea/vomiting. He has a hx of ESRD on PD, AFib on Eliquis, morbid obesity, htn, who is admitted to ICU with uncontrolled htn. He states that he took Clonidine yesterday w/o improvement of his BP at home. In association, he describes a generalized abdominal discomfort with bouts of nausea/vomiting. No blood in the emesis and no melena/hematochezia. Mr. Lema states that he has experienced this pain in the past, when his BP was running high. CT A/P was done, which did not demonstrate any acute findings. PD fluid analysis was done and did not reveal evidence of infection. Pt states that he is starting to feel better and that his pain is less. No further N/V. Past History Past Medical History: ESRD, hypertension, renal failure, other (obesity) Past Surgical History: Other (PD catheter placement) Social history: full code. denies: smoking, alcohol abuse, prescription drug abuse, IV drug use Family history: hypertension Medications and Allergies Allergies Allergy/AdvReac Type Severity Reaction Status Date / Time No Known Allergies Allergy Verified 08/12/13 02:52 Home Medications Medication Instructions Recorded Confirmed Last Taken Type Calcitriol [Rocaltrol] 0.25 mcg PO QDAY 06/21/16 09/03/16 09/02/16 History Calcium Acetate [Phoslo] 2 cap PO TID 06/21/16 09/03/16 09/02/16 History Ergocalciferol [Vitamin D2] 1 cap PO QWEEK 06/21/16 09/03/16 09/02/16 History Furosemide [Lasix TAB] 40 mg PO QDAY 06/21/16 09/03/16 09/02/16 History Metoprolol [Lopressor TAB] 100 mg PO BID 06/21/16 09/03/16 09/02/16 History NIFEdipine XL [Procardia Xl] 90 mg PO QDAY 06/21/16 09/03/16 09/02/16 History Simvastatin [Zocor TAB] 40 mg PO QHS 06/21/16 09/03/16 09/02/16 History Spironolactone [Aldactone] 50 mg PO BID 06/21/16 09/03/16 09/02/16 History methylPREDNISolone [Medrol Dose 4 mg PO QDAY 06/21/16 09/03/16 Unknown History Kaleb] Ondansetron [Zofran TAB] 4 mg PO Q8HR PRN #20 tablet 06/28/16 09/03/16 09/02/16 Rx oxyCODONE /ACETAMINOPHEN [Percocet 1 tab PO Q4HR PRN #20 tab 06/28/16 09/03/16 Unknown Rx 5/325 mg] Apixaban [Eliquis] 5 mg PO Q12HR #60 tablet 08/01/16 09/03/16 09/02/16 Rx Clonidine HCl [Catapres] 0.3 mg PO BID #60 tablet 08/01/16 09/03/16 09/02/16 Rx Active Meds: Active Medications Apixaban (Eliquis) 5 mg PO Q12HR [facility] Last Admin: 09/04/16 09:33 Dose: 5 mg Calcitriol (Rocaltrol) 0.25 mcg PO QDAY [facility] Last Admin: 09/04/16 10:53 Dose: 0.25 mcg Calcium Acetate (Phoslo) 1,334 mg PO TIDWM [facility] Last Admin: 09/04/16 08:02 Dose: 1,334 mg Ergocalciferol (Vitamin D2) 50,000 unit PO Mo [facility] Furosemide (Lasix) 40 mg PO QDAY [facility] Last Admin: 09/04/16 09:32 Dose: 40 mg Hydralazine HCl (Apresoline) 20 mg IV Q4H PRN PRN Reason: Hypertension Last Admin: 09/03/16 03:45 Dose: 20 mg Hydromorphone HCl (Dilaudid) 1 mg IV Q3H PRN PRN Reason: Pain , Severe (7-10) Nicardipine/Sodium Chloride (Cardene Drip 40 Mg/200 Ml) 200 mls @ 25 mls/hr IV TITR EZRA; 5 MG/HR PRN Reason: Protocol Last Admin: 09/04/16 06:05 Dose: 35 mls/hr Lactulose (Cephulac) 20 gm PO Q6HR [facility] Last Admin: 09/04/16 09:34 Dose: 20 gm Metoprolol Tartrate (Lopressor) 100 mg PO BID [facility] Last Admin: 09/04/16 09:33 Dose: 100 mg Nifedipine (Procardia Xl) 90 mg PO QDAY [facility] Ondansetron HCl (Zofran) 3 mg IV Q4H PRN PRN Reason: Nausea And Vomiting Oxycodone/Acetaminophen (Percocet 5/325) 1 tab PO Q4HR PRN PRN Reason: Pain , Severe (7-10) Last Admin: 09/04/16 02:38 Dose: 1 tab Peritoneal Dialysis Solution (Dianeal Low Calcium W/2.5% Dextrose) 2,000 ml IP Q6HR [facility] Last Admin: 09/04/16 06:05 Dose: 2,000 ml Simvastatin (Zocor) 40 mg PO QHS [facility] Last Admin: 09/03/16 21:49 Dose: 40 mg Spironolactone (Aldactone) 50 mg PO BID [facility] Last Admin: 09/04/16 09:32 Dose: 50 mg Review of Systems - Review of Systems All systems: negative (abdominal pain, nausea/vomiting) Exam - Constitutional Vital Signs: Temp Pulse Resp BP Pulse Ox 98.1 F 75 19 171/117 97 09/04/16 07:46 09/04/16 10:45 09/04/16 10:45 09/04/16 10:45 09/04/16 10:45 General appearance: no acute distress - EENT Eyes: PERRL - Neck Neck: supple - Respiratory Respiratory: bilateral: CTA - Cardiovascular Rhythm: regular Heart Sounds: Present: S1 & S2 Extremities: No edema - Gastrointestinal General gastrointestinal: Present: soft, non-tender, non-distended, normal bowel sounds, other (+PD catheter) - Neurologic Neurological: alert and oriented x3 - Psychiatric Psychiatric: appropriate mood/affect - Labs CBC & Chem 7: 09/04/16 07:35 09/04/16 07:35 Lab Results: Laboratory Results - last 24 hr 09/03/16 09/04/16 09/04/16 13:30 04:24 04:24 WBC 12.1 H RBC 4.89 Hgb 14.0 Hct 43.8 MCV 90 MCH 29 MCHC 32 RDW 13.5 Plt Count 281 Lymph % (Auto) 15.8 [place] % (Auto) 8.6 H Eos % (Auto) 5.1 H Baso % (Auto) 0.4 Lymph # 1.9 [place] # 1.0 H Eos # 0.6 H Baso # 0.0 Seg Neutrophils % 70.1 H Seg Neutrophils # 8.5 H Sodium 140 Potassium 4.6 Chloride 97.5 L Carbon Dioxide 23 Anion Gap 24 BUN 69 H Creatinine 8.5 H Estimated GFR 9 BUN/Creatinine Ratio 8.11 Glucose 126 H Calcium 6.8 L Phosphorus Magnesium Fluid Type Peritoneal Fluid Color Straw Fluid Appearance Clear Fluid WBC 44 Fluid RBC 25 Fluid Seg Neutrophils 7.0 Fluid Lymphocytes 27.0 Fluid Reactive Lymphs 0 Fluid Monocytes 65.0 Fluid Eosinophils 1.0 Fluid Basophils 0 09/04/16 09/04/16 09/04/16 05:55 07:35 07:35 WBC 12.3 H RBC 4.70 Hgb 13.5 Hct 42.2 MCV 90 MCH 29 MCHC 32 RDW 13.6 Plt Count 277 Lymph % (Auto) 19.4 [place] % (Auto) 9.2 H Eos % (Auto) 4.5 H Baso % (Auto) 0.5 Lymph # 2.4 [place] # 1.1 H Eos # 0.6 H Baso # 0.1 Seg Neutrophils % 66.4 Seg Neutrophils # 8.2 H Sodium 139 Potassium 4.5 Chloride 97.2 L Carbon Dioxide 26 Anion Gap 20 BUN 71 H Creatinine 9.1 H Estimated GFR 8 BUN/Creatinine Ratio 7.80 Glucose 145 H Calcium 6.6 L Phosphorus 6.8 H Magnesium 1.6 L Fluid Type Fluid Color Fluid Appearance Fluid WBC Fluid RBC Fluid Seg Neutrophils Fluid Lymphocytes Fluid Reactive Lymphs Fluid Monocytes Fluid Eosinophils Fluid Basophils - Imaging CT Scan: report reviewed Assessment and Plan 31yo man with above hx, a/w uncontrolled BP, abdominal pain, nausea/vomiting. He has had similar symptoms in the past, when his BP was running high. CT was unremarkable and he does not have infected PD fluid. Rec: 1) Supportive care 2) Diet as tolerated 3) Control BP as per ICU team 4) No further inpatient GI w/u needed at this time Will sign off, but please re-call with any questions. Thank you for allowing me to participate in the care of your patient.
--- NOTE | 2016-09-04 12:24 | Progress Note ---
Assessment and Plan Assessment and plan: 1. Abdominal pain. GI consultation. Continue supportive care. 2. Accelerated hypertension. Cardiac drip has been weaned off. Continue by mouth antihypertensive medications. We'll transfer to floor. 4. Atrial fibrillation. Continue Apixaban 4. Morbid obesity. Nutritional consultation. 5. ESRD. Continue peritoneal dialysis. 6. Obstructive sleep apnea. Continue CPAP per pulmonary. 7. Disposition. Patient will be transferred to the floor. History Interval history: Patient is a 31-year-old male Morbidly Obese with history of end-stage renal disease on peritoneal dialysis at home, atrial fibrillation on eliquis, hypertension, hyperlipidemia presented to the emergency room today with a complaint of abdominal pain and nausea/vomiting. Patient had accelerated hypertension requiring Cardizem drip. Cardiac drip has been weaned off and patient doing better. Currently no complaints of abdominal pain or N/V. Hospitalist Physical - Constitutional Vitals: Temp Pulse Resp BP Pulse Ox 98.1 F 75 19 171/117 97 09/04/16 07:46 09/04/16 10:45 09/04/16 10:45 09/04/16 10:45 09/04/16 10:45 General appearance: Present: no acute distress, well-nourished - EENT Eyes: Present: PERRL, EOM intact ENT: hearing intact, clear oral mucosa, dentition normal - Neck Neck: Present: supple, normal ROM - Respiratory Respiratory effort: normal Respiratory: bilateral: CTA - Cardiovascular Rhythm: regular Heart Sounds: Present: S1 & S2. Absent: gallop, rub - Extremities Extremities: no ischemia, No edema, Full ROM - Abdominal General gastrointestinal: soft, non-tender, non-distended, normal bowel sounds - Integumentary Integumentary: Present: clear, warm, dry - Neurologic Neurologic: CNII-XII intact, moves all extremities Results - Labs CBC & Chem 7: 09/04/16 07:35 09/04/16 07:35 Labs: Laboratory Last Values WBC 12.3 K/mm3 (4.5-11.0) H 09/04/16 07:35 RBC 4.70 M/mm3 (3.65-5.03) 09/04/16 07:35 Hgb 13.5 gm/dl (11.8-15.2) 09/04/16 07:35 Hct 42.2 % (35.5-45.6) 09/04/16 07:35 MCV 90 fl (84-94) 09/04/16 07:35 MCH 29 pg (28-32) 09/04/16 07:35 MCHC 32 % (32-34) 09/04/16 07:35 RDW 13.6 % (13.2-15.2) 09/04/16 07:35 Plt Count 277 K/mm3 (140-440) 09/04/16 07:35 Lymph % (Auto) 19.4 % (13.4-35.0) 09/04/16 07:35 [place] % (Auto) 9.2 % (0.0-7.3) H 09/04/16 07:35 Eos % (Auto) 4.5 % (0.0-4.3) H 09/04/16 07:35 Baso % (Auto) 0.5 % (0.0-1.8) 09/04/16 07:35 Lymph # 2.4 K/mm3 (1.2-5.4) 09/04/16 07:35 [place] # 1.1 K/mm3 (0.0-0.8) H 09/04/16 07:35 Eos # 0.6 K/mm3 (0.0-0.4) H 09/04/16 07:35 Baso # 0.1 K/mm3 (0.0-0.1) 09/04/16 07:35 Seg Neutrophils % 66.4 % (40.0-70.0) 09/04/16 07:35 Seg Neutrophils # 8.2 K/mm3 (1.8-7.7) H 09/04/16 07:35 PT 12.9 Sec. (12.2-14.9) 09/02/16 16:20 INR 0.98 (0.87-1.13) 09/02/16 16:20 APTT 34.1 Sec. (24.2-36.6) 09/02/16 16:20 Sodium 139 mmol/L (137-145) 09/04/16 07:35 Potassium 4.5 mmol/L (3.6-5.0) 09/04/16 07:35 Chloride 97.2 mmol/L (98-107) L 09/04/16 07:35 Carbon Dioxide 26 mmol/L (22-30) 09/04/16 07:35 Anion Gap 20 mmol/L 09/04/16 07:35 BUN 71 mg/dL (9-20) H 09/04/16 07:35 Creatinine 9.1 mg/dL (0.8-1.5) H 09/04/16 07:35 Estimated GFR 8 ml/min 09/04/16 07:35 BUN/Creatinine Ratio 7.80 % 09/04/16 07:35 Glucose 145 mg/dL (75-100) H 09/04/16 07:35 Lactic Acid 0.9 mmol/L (0.7-2.0) 09/02/16 21:27 Calcium 6.6 mg/dL (8.4-10.2) L 09/04/16 07:35 Phosphorus 6.8 mg/dL (2.5-4.5) H 09/04/16 07:35 Magnesium 1.6 mg/dL (1.7-2.3) L 09/04/16 05:55 Total Bilirubin 0.2 mg/dL (0.1-1.2) 09/02/16 16:20 Direct Bilirubin < 0.2 mg/dL (0-0.2) 09/02/16 16:20 Indirect Bilirubin 0.0 mg/dL 09/02/16 16:20 AST 12 units/L (5-40) 09/02/16 16:20 ALT < 5 units/L (7-56) L 09/02/16 16:20 Alkaline Phosphatase 59 units/L (35-129) 09/02/16 16:20 Total Creatine Kinase 133 units/L (55-170) 09/02/16 16:20 CK-MB (CK-2) 3.3 ng/mL (0.0-4.0) 09/02/16 16:20 CK-MB (CK-2) Rel Index 2.4 (0-4) 09/02/16 16:20 Troponin T 0.013 ng/mL (0.00-0.029) 09/02/16 16:20 Total Protein 6.2 g/dL (6.3-8.2) L 09/02/16 16:20 Albumin 3.0 g/dL (3.9-5) L 09/02/16 16:20 Albumin/Globulin Ratio 0.9 % 09/02/16 16:20 Lipase 71 units/L (13-60) H 09/02/16 16:20 Fluid Type Peritoneal 09/03/16 13:30 Fluid Color Straw 09/03/16 13:30 Fluid Appearance Clear 09/03/16 13:30 Fluid WBC 44 /mm3 09/03/16 13:30 Fluid RBC 25 /mm3 09/03/16 13:30 Fluid Seg Neutrophils 7.0 % 09/03/16 13:30 Fluid Lymphocytes 27.0 % 09/03/16 13:30 Fluid Reactive Lymphs 0 % 09/03/16 13:30 Fluid Monocytes 65.0 % 09/03/16 13:30 Fluid Eosinophils 1.0 % 09/03/16 13:30 Fluid Basophils 0 % 09/03/16 13:30
[2016-09-04] MEDS: APRESOLINE IV PRN ×2 (12:48→16:33)
[2016-09-04] MEDS: PROCARDIA XL PO SCH (12:49)
--- NOTE | 2016-09-04 14:32 | Progress Note ---
Assessment and Plan (1) ESRD on PD secondary to HTN nephrosclerosis cont current PD regimen PD fluid negative for peritonitis renally dose mds strict I&O daily weights (2) HTN urgency off nicardin gtt will add losartan 50 mg PO to his current regimen (3) Secondary hyperparathyroidsim cont calcitriol (4) abdominal pain evaulated by GI will increase lactulose, no BM for the last 3 days Subjective Date of service: 09/04/16 Principal diagnosis: ESRD on PD Interval history: abd pain improved but remains constipated Objective - Vital Signs Vital signs: Vital Signs - 12hr 09/04/16 09/04/16 09/04/16 02:31 02:45 02:57 Temperature Pulse Rate 75 74 76 Pulse Rate [ From Monitor] Respiratory 11 L 21 22 Rate Blood Pressure 157/94 157/94 157/94 O2 Sat by Pulse 99 94 95 Oximetry 09/04/16 09/04/16 09/04/16 03:01 03:15 03:33 Temperature Pulse Rate 73 79 72 Pulse Rate [ From Monitor] Respiratory 22 22 19 Rate Blood Pressure 157/90 157/90 221/110 O2 Sat by Pulse 96 97 86 Oximetry 09/04/16 09/04/16 09/04/16 03:45 04:01 04:15 Temperature Pulse Rate 74 77 76 Pulse Rate [ From Monitor] Respiratory 22 15 18 Rate Blood Pressure 221/110 221/110 221/110 O2 Sat by Pulse 95 94 96 Oximetry 09/04/16 09/04/16 09/04/16 04:20 04:25 04:31 Temperature 98.1 F Pulse Rate 75 76 Pulse Rate [ From Monitor] Respiratory 18 19 Rate Blood Pressure 221/110 150/93 O2 Sat by Pulse 96 94 Oximetry 09/04/16 09/04/16 09/04/16 04:45 05:00 05:15 Temperature Pulse Rate 76 80 79 Pulse Rate [ From Monitor] Respiratory 17 17 18 Rate Blood Pressure 150/93 149/95 149/95 O2 Sat by Pulse 95 97 96 Oximetry 09/04/16 09/04/16 09/04/16 05:30 05:45 05:51 Temperature Pulse Rate 80 79 Pulse Rate [ From Monitor] Respiratory 20 21 Rate Blood Pressure 137/79 137/79 137/79 O2 Sat by Pulse 97 94 97 Oximetry 09/04/16 09/04/16 09/04/16 05:53 06:00 06:05 Temperature Pulse Rate 80 Pulse Rate [ From Monitor] Respiratory 21 Rate Blood Pressure 137/79 143/82 143/82 O2 Sat by Pulse 97 97 95 Oximetry 09/04/16 09/04/16 09/04/16 06:15 06:30 06:45 Temperature Pulse Rate 80 79 79 Pulse Rate [ From Monitor] Respiratory 17 20 24 Rate Blood Pressure 143/82 141/72 141/72 O2 Sat by Pulse 94 97 95 Oximetry 09/04/16 09/04/16 09/04/16 07:00 07:15 07:17 Temperature Pulse Rate 79 79 80 Pulse Rate [ From Monitor] Respiratory 18 17 18 Rate Blood Pressure 142/71 142/71 142/71 O2 Sat by Pulse 94 97 97 Oximetry 09/04/16 09/04/16 09/04/16 07:30 07:45 07:46 Temperature 98.1 F Pulse Rate 79 80 Pulse Rate [ From Monitor] Respiratory 20 14 Rate Blood Pressure 154/92 154/92 O2 Sat by Pulse 97 98 Oximetry 09/04/16 09/04/16 09/04/16 08:00 08:01 08:07 Temperature Pulse Rate 78 78 Pulse Rate [ 87 From Monitor] Respiratory 20 16 18 Rate Blood Pressure 154/92 150/94 O2 Sat by Pulse 100 98 98 Oximetry 09/04/16 09/04/16 09/04/16 08:15 08:31 08:45 Temperature Pulse Rate 81 83 78 Pulse Rate [ From Monitor] Respiratory 19 14 14 Rate Blood Pressure 150/94 150/94 168/96 O2 Sat by Pulse 97 97 Oximetry 09/04/16 09/04/16 09/04/16 09:01 09:15 09:23 Temperature Pulse Rate 76 78 79 Pulse Rate [ From Monitor] Respiratory 21 20 19 Rate Blood Pressure 177/93 177/93 177/93 O2 Sat by Pulse 95 78 L 97 Oximetry 09/04/16 09/04/16 09/04/16 09:31 09:32 09:33 Temperature Pulse Rate 80 81 81 Pulse Rate [ From Monitor] Respiratory 12 Rate Blood Pressure 145/88 177/93 177/93 O2 Sat by Pulse 96 Oximetry 09/04/16 09/04/16 09/04/16 09:45 10:01 10:15 Temperature Pulse Rate 75 78 75 Pulse Rate [ From Monitor] Respiratory 22 21 13 Rate Blood Pressure 145/88 158/102 158/102 O2 Sat by Pulse 99 95 93 Oximetry 09/04/16 09/04/16 09/04/16 10:31 10:45 10:51 Temperature Pulse Rate 73 75 75 Pulse Rate [ From Monitor] Respiratory 14 19 20 Rate Blood Pressure 172/101 171/117 171/117 O2 Sat by Pulse 97 97 Oximetry 09/04/16 09/04/16 09/04/16 11:00 11:15 11:30 Temperature Pulse Rate 76 77 77 Pulse Rate [ From Monitor] Respiratory 14 15 14 Rate Blood Pressure 160/98 160/98 173/120 O2 Sat by Pulse 97 Oximetry 09/04/16 09/04/16 09/04/16 11:45 12:00 12:15 Temperature 98.2 F Pulse Rate 81 77 80 Pulse Rate [ From Monitor] Respiratory 23 18 16 Rate Blood Pressure 173/120 180/110 180/110 O2 Sat by Pulse Oximetry 09/04/16 09/04/16 09/04/16 12:27 12:30 12:31 Temperature Pulse Rate 76 79 Pulse Rate [ From Monitor] Respiratory 21 17 20 Rate Blood Pressure 180/110 187/124 O2 Sat by Pulse Oximetry 09/04/16 09/04/16 09/04/16 12:45 12:48 13:00 Temperature Pulse Rate 78 75 79 Pulse Rate [ From Monitor] Respiratory 14 18 Rate Blood Pressure 187/124 187/124 176/106 O2 Sat by Pulse Oximetry 09/04/16 09/04/16 09/04/16 13:15 13:30 13:45 Temperature Pulse Rate 75 77 79 Pulse Rate [ From Monitor] Respiratory 14 22 24 Rate Blood Pressure 176/106 170/113 170/113 O2 Sat by Pulse Oximetry 09/04/16 09/04/16 14:00 14:15 Temperature Pulse Rate 71 80 Pulse Rate [ From Monitor] Respiratory 20 22 Rate Blood Pressure 184/109 184/109 O2 Sat by Pulse Oximetry - General Appearance General appearance: well-developed, well-nourished, obese EENT: ATNC, PERRL, mucous membranes moist Neck: no JVD, no carotid bruit Respiratory: Present: Clear to Ascultation. Absent: Ronchi Cardiology: regular, S1S2 Gastrointestinal: normoactive bowel sounds, no tenderness, no distended, obese Integumentary: no rash, warm and dry Neurologic: no focal deficit, no asterixis, alert and oriented x3 Musculoskeletal: other (no edema in BLE) Psychiatric: mood/affect appropriate, cooperative - Lab 09/04/16 07:35 09/04/16 07:35 Most recent lab results Calcium 6.6 mg/dL (8.4-10.2) L 09/04/16 07:35 Phosphorus 6.8 mg/dL (2.5-4.5) H 09/04/16 07:35 Magnesium 1.6 mg/dL (1.7-2.3) L 09/04/16 05:55
[2016-09-04] MEDS: COZAAR PO SCH (14:53)
--- NOTE | 2016-09-04 16:30 | Progress Note ---
Assessment and Plan Patient is a 31-year-old male Morbidly Obese with history of end-stage renal disease on peritoneal dialysis at home, atrial fibrillation on eliquis, hypertension, hyperlipidemia presented to the emergency room today with a complaint of abdominal pain and nausea vomiting. Patients blood pressure running high at home. Patient took Clonidine with out much improvement. He then started noticing some mild periumbilical abdominal pain and had multiple bouts of no emesis. Stated he's had this in the past multiple times and its associated with his hypertension. He has had a peritoneal infection once with his dialysis in the past and he states this is nothing like that. The PD catheter is not cloudy. He took his metoprolol 100 mg, spironolactone, and .3 mg clonidine while being in the ER. Patient started on cardene drip. Patients blood pressure coming down.Patient also receiving peritoneal dialysis. Patient denies Adominal pain or nausea at this time. Patient resting on room air. O2 satuaration. 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 Patient has history of sleep apnea. He does not use CPAP at home. 09/04/16 Patient alert, awake. Cardene drip is stopped.Nephrology adjusted his blood pressure medication. Patient has peritoneal dialysis today. No complaint of chest pain or shortness of breath or abdominal pain. I spent critical care time of 35 minutesin , reviewing the chart, review the labs, talking to the nursing staff and work out plan of treatment. - Patient Problems (1) Abdominal pain Current Visit: Yes Status: Acute Qualifiers: Abdominal location: upper abdomen, unspecified Qualified Code(s): R10.10 - Upper abdominal pain, unspecified Plan to address problem: No complaint of abdominal pain now. Patient receiving Peritoneal dialysis. (2) Accelerated hypertension Current Visit: No Status: Acute Plan to address problem: Patient is on cardene drip Mangement as per primary care 09/04/16. Patient off the cardene drip. Nephrology adjusted blood pressure medications. (3) Atrial fibrillation Current Visit: No Status: Acute Plan to address problem: Patient is on Apixaban. Management as per primary and cardiology. (4) Morbid obesity with BMI of 40.0-44.9, adult Current Visit: No Status: Chronic Plan to address problem: Consult Nutrition for weight reduction diet. (5) ESRD on peritoneal dialysis Current Visit: No Status: Chronic Plan to address problem: Patient is on Peritoneal dialysis. Consult nephrology. (6) Obstructive sleep apnea Current Visit: Yes Status: Acute Plan to address problem: Place him empirically on CPAP during sleep 10 cm H2O pressure. Subjective Date of service: 09/04/16 Principal diagnosis: ESRD on PD Interval history: Patient alert, awake. Cardene drip is stopped.Nephrology adjusted his blood pressure medication. Patient has peritoneal dialysis today. No complaint of chest pain or shortness of breath or abdominal pain. Objective Vital Signs - 12hr 09/04/16 09/04/16 09/04/16 04:25 04:31 04:45 Temperature Pulse Rate 75 76 76 Pulse Rate [ From Monitor] Respiratory 18 19 17 Rate Blood Pressure 221/110 150/93 150/93 O2 Sat by Pulse 96 94 95 Oximetry 09/04/16 09/04/16 09/04/16 05:00 05:15 05:30 Temperature Pulse Rate 80 79 80 Pulse Rate [ From Monitor] Respiratory 17 18 20 Rate Blood Pressure 149/95 149/95 137/79 O2 Sat by Pulse 97 96 97 Oximetry 09/04/16 09/04/16 09/04/16 05:45 05:51 05:53 Temperature Pulse Rate 79 Pulse Rate [ From Monitor] Respiratory 21 Rate Blood Pressure 137/79 137/79 137/79 O2 Sat by Pulse 94 97 97 Oximetry 09/04/16 09/04/16 09/04/16 06:00 06:05 06:15 Temperature Pulse Rate 80 80 Pulse Rate [ From Monitor] Respiratory 21 17 Rate Blood Pressure 143/82 143/82 143/82 O2 Sat by Pulse 97 95 94 Oximetry 09/04/16 09/04/16 09/04/16 06:30 06:45 07:00 Temperature Pulse Rate 79 79 79 Pulse Rate [ From Monitor] Respiratory 20 24 18 Rate Blood Pressure 141/72 141/72 142/71 O2 Sat by Pulse 97 95 94 Oximetry 09/04/16 09/04/16 09/04/16 07:15 07:17 07:30 Temperature Pulse Rate 79 80 79 Pulse Rate [ From Monitor] Respiratory 17 18 20 Rate Blood Pressure 142/71 142/71 154/92 O2 Sat by Pulse 97 97 97 Oximetry 09/04/16 09/04/16 09/04/16 07:45 07:46 08:00 Temperature 98.1 F Pulse Rate 80 Pulse Rate [ 87 From Monitor] Respiratory 14 20 Rate Blood Pressure 154/92 O2 Sat by Pulse 98 100 Oximetry 09/04/16 09/04/16 09/04/16 08:01 08:07 08:15 Temperature Pulse Rate 78 78 81 Pulse Rate [ From Monitor] Respiratory 16 18 19 Rate Blood Pressure 154/92 150/94 150/94 O2 Sat by Pulse 98 98 97 Oximetry 09/04/16 09/04/16 09/04/16 08:31 08:45 09:01 Temperature Pulse Rate 83 78 76 Pulse Rate [ From Monitor] Respiratory 14 14 21 Rate Blood Pressure 150/94 168/96 177/93 O2 Sat by Pulse 97 95 Oximetry 09/04/16 09/04/16 09/04/16 09:15 09:23 09:31 Temperature Pulse Rate 78 79 80 Pulse Rate [ From Monitor] Respiratory 20 19 12 Rate Blood Pressure 177/93 177/93 145/88 O2 Sat by Pulse 78 L 97 96 Oximetry 09/04/16 09/04/16 09/04/16 09:32 09:33 09:45 Temperature Pulse Rate 81 81 75 Pulse Rate [ From Monitor] Respiratory 22 Rate Blood Pressure 177/93 177/93 145/88 O2 Sat by Pulse 99 Oximetry 09/04/16 09/04/16 09/04/16 10:01 10:15 10:31 Temperature Pulse Rate 78 75 73 Pulse Rate [ From Monitor] Respiratory 21 13 14 Rate Blood Pressure 158/102 158/102 172/101 O2 Sat by Pulse 95 93 97 Oximetry 09/04/16 09/04/16 09/04/16 10:45 10:51 11:00 Temperature Pulse Rate 75 75 76 Pulse Rate [ From Monitor] Respiratory 19 20 14 Rate Blood Pressure 171/117 171/117 160/98 O2 Sat by Pulse 97 Oximetry 09/04/16 09/04/16 09/04/16 11:15 11:30 11:45 Temperature Pulse Rate 77 77 81 Pulse Rate [ From Monitor] Respiratory 15 14 23 Rate Blood Pressure 160/98 173/120 173/120 O2 Sat by Pulse 97 Oximetry 09/04/16 09/04/16 09/04/16 12:00 12:15 12:27 Temperature 98.2 F Pulse Rate 77 80 76 Pulse Rate [ From Monitor] Respiratory 18 16 21 Rate Blood Pressure 180/110 180/110 180/110 O2 Sat by Pulse Oximetry 09/04/16 09/04/16 09/04/16 12:30 12:31 12:45 Temperature Pulse Rate 79 78 Pulse Rate [ From Monitor] Respiratory 17 20 14 Rate Blood Pressure 187/124 187/124 O2 Sat by Pulse Oximetry 09/04/16 09/04/16 09/04/16 12:48 13:00 13:15 Temperature Pulse Rate 75 79 75 Pulse Rate [ From Monitor] Respiratory 18 14 Rate Blood Pressure 187/124 176/106 176/106 O2 Sat by Pulse Oximetry 09/04/16 09/04/16 09/04/16 13:30 13:45 14:00 Temperature Pulse Rate 77 79 87 Pulse Rate [ From Monitor] Respiratory 22 24 20 Rate Blood Pressure 170/113 170/113 184/109 O2 Sat by Pulse Oximetry 09/04/16 09/04/16 14:15 14:53 Temperature Pulse Rate 80 76 Pulse Rate [ From Monitor] Respiratory 22 Rate Blood Pressure 184/109 195/122 O2 Sat by Pulse Oximetry Constitutional: no acute distress, alert Eyes: non-icteric ENT: oropharynx moist Neck: supple, no JVD Cardiovascular: regular rate and rhythm Gastrointestinal: normoactive bowel sounds, soft, non-tender Integumentary: normal Extremities: no cyanosis, other (Trace edema.) Neurologic: normal mental status, non-focal exam, pupils equal and round, CN II- XII normal Psychiatric: mood appropriate CBC and BMP: 09/04/16 07:35 09/04/16 07:35 ABG, PT/INR, D-dimer: PT/INR, D-dimer PT 12.9 Sec. (12.2-14.9) 09/02/16 16:20 INR 0.98 (0.87-1.13) 09/02/16 16:20 Abnormal lab findings: Abnormal Labs 09/04/16 09/04/16 09/04/16 04:24 04:24 05:55 WBC 12.1 H [place] % (Auto) 8.6 H Eos % (Auto) 5.1 H [place] # 1.0 H Eos # 0.6 H Seg Neutrophils % 70.1 H Seg Neutrophils # 8.5 H Chloride 97.5 L BUN 69 H Creatinine 8.5 H Glucose 126 H Calcium 6.8 L Phosphorus Magnesium 1.6 L 09/04/16 09/04/16 07:35 07:35 WBC 12.3 H [place] % (Auto) 9.2 H Eos % (Auto) 4.5 H [place] # 1.1 H Eos # 0.6 H Seg Neutrophils % Seg Neutrophils # 8.2 H Chloride 97.2 L BUN 71 H Creatinine 9.1 H Glucose 145 H Calcium 6.6 L Phosphorus 6.8 H Magnesium
[2016-09-04] MEDS: ZOCOR PO SCH (22:47)
[2016-09-05] MEDS: DIANEAL LOW CALCIUM W/2.5% DEXTROSE IP SCH ×3 (00:52→12:00)
[2016-09-05] MEDS: CEPHULAC PO SCH ×2 (03:37→08:00)
[2016-09-05] MEDS ORDERED: VITAMIN D2 PO SCH (03:40)
[2016-09-05 06:14] LABS: Basophils % (Auto) 0.6 % (0.0-1.8); Eosinophils % (Auto) 6.3 % (0.0-4.3); Hematocrit 43.2 % (35.5-45.6); Hemoglobin 14.1 gm/dl (11.8-15.2); Mean Corpuscular HGB Conc 33 % (32-34); Mean Corpuscular Hemoglobin 30 pg (28-32); Mean Corpuscular Volume 91 fl (84-94); Platelet Count 272 K/mm3 (140-440); Red Blood Count 4.74 M/mm3 (3.65-5.03); White Blood Count 10.3 K/mm3 (4.5-11.0)
[2016-09-05 06:34] LABS: BUN/Creatinine Ratio 7.2; Calcium 6.8 mg/dL (8.4-10.2); Chloride 96.6 mmol/L (98-107); Phosphorous 6.6 mg/dL (2.5-4.5); Potassium 4.5 mmol/L (3.6-5.0)
[2016-09-05] MEDS: PHOSLO PO SCH ×3 (08:25→18:04)
[2016-09-05] MEDS: ALDACTONE PO SCH ×2 (09:38→22:18)
[2016-09-05] MEDS: ROCALTROL PO SCH (09:39)
[2016-09-05] MEDS: LOPRESSOR PO SCH ×2 (09:39→22:19)
[2016-09-05] MEDS: COZAAR PO SCH (09:39)
[2016-09-05] MEDS: ELIQUIS PO SCH ×2 (09:39→22:18)
[2016-09-05] MEDS: LASIX PO SCH (09:39)
[2016-09-05] MEDS: PROCARDIA XL PO SCH (09:40)
[2016-09-05] MEDS ORDERED: CEPHULAC PO PRN (11:42)
--- NOTE | 2016-09-05 13:07 | Progress Note ---
Assessment and Plan (1) ESRD on PD secondary to HTN nephrosclerosis cont current PD regimen PD fluid negative for peritonitis renally dose mds strict I&O daily weights (2) HTN urgency off nicardin gtt will increase losartan to 100 mg qday (3) Secondary hyperparathyroidsim cont calcitriol (4) abdominal pain evaluated by GI Subjective Date of service: 09/05/16 Principal diagnosis: ESRD on PD Interval history: abd pain improved but vomited once this AM Objective - Vital Signs Vital signs: Vital Signs - 12hr 09/05/16 09/05/16 09/05/16 01:16 01:20 01:30 Temperature Pulse Rate 74 77 73 Respiratory 18 21 14 Rate Blood Pressure 148/89 148/89 154/98 O2 Sat by Pulse 96 97 97 Oximetry 09/05/16 09/05/16 09/05/16 01:46 02:00 02:16 Temperature Pulse Rate 76 74 74 Respiratory 22 19 25 H Rate Blood Pressure 154/98 155/96 155/96 O2 Sat by Pulse 100 99 97 Oximetry 09/05/16 09/05/16 09/05/16 02:28 02:30 02:46 Temperature Pulse Rate 73 71 72 Respiratory 23 20 25 H Rate Blood Pressure 155/96 166/94 166/94 O2 Sat by Pulse 90 92 99 Oximetry 09/05/16 09/05/16 09/05/16 03:00 03:16 03:28 Temperature Pulse Rate 79 78 72 Respiratory 14 15 12 Rate Blood Pressure 159/112 159/112 159/112 O2 Sat by Pulse 91 98 99 Oximetry 09/05/16 09/05/16 09/05/16 03:30 03:46 04:00 Temperature 98.6 F Pulse Rate 80 75 70 Respiratory 12 12 20 Rate Blood Pressure 161/103 161/103 157/90 O2 Sat by Pulse 99 99 98 Oximetry 09/05/16 09/05/16 09/05/16 04:16 04:22 04:30 Temperature Pulse Rate 73 78 73 Respiratory 24 23 20 Rate Blood Pressure 157/90 157/90 O2 Sat by Pulse 98 97 97 Oximetry 09/05/16 09/05/16 09/05/16 04:31 04:46 05:00 Temperature Pulse Rate 73 78 76 Respiratory 22 12 19 Rate Blood Pressure 166/101 161/110 O2 Sat by Pulse 98 95 99 Oximetry 01/09/05/16 09/05/16 05:08 05:16 05:30 Temperature Pulse Rate 70 67 69 Respiratory 26 H 16 20 Rate Blood Pressure 161/110 161/110 177/117 O2 Sat by Pulse 100 96 99 Oximetry 09/05/16 09/05/16 09/05/16 05:46 06:00 06:16 Temperature Pulse Rate 70 67 Respiratory 22 17 Rate Blood Pressure 177/117 172/108 172/108 O2 Sat by Pulse 100 99 99 Oximetry 09/05/16 09/05/16 09/05/16 06:30 06:46 07:00 Temperature Pulse Rate Respiratory Rate Blood Pressure 172/108 172/108 179/116 O2 Sat by Pulse 98 98 97 Oximetry 09/05/16 09/05/16 09/05/16 07:02 07:16 07:30 Temperature Pulse Rate Respiratory Rate Blood Pressure 179/116 179/116 180/117 O2 Sat by Pulse 98 98 99 Oximetry 09/05/16 09/05/16 09/05/16 07:46 08:00 08:16 Temperature 98.2 F Pulse Rate 75 87 82 Respiratory 14 17 20 Rate Blood Pressure 180/117 180/117 199/124 O2 Sat by Pulse 99 99 99 Oximetry 09/05/16 09/05/16 09/05/16 08:30 08:46 08:57 Temperature Pulse Rate 75 77 76 Respiratory 22 24 21 Rate Blood Pressure 197/122 197/122 197/122 O2 Sat by Pulse 98 100 99 Oximetry 09/05/16 09/05/16 09/05/16 09:00 09:16 09:20 Temperature Pulse Rate 75 78 80 Respiratory 18 21 23 Rate Blood Pressure 185/112 185/112 185/112 O2 Sat by Pulse 99 99 98 Oximetry 09/05/16 09/05/16 09/05/16 09:30 09:38 09:39 Temperature Pulse Rate 78 86 83 Respiratory 26 H Rate Blood Pressure 164/93 164/93 164/93 O2 Sat by Pulse 99 Oximetry 09/05/16 09/05/16 09/05/16 09:46 10:00 10:16 Temperature Pulse Rate 76 73 71 Respiratory 23 20 20 Rate Blood Pressure 164/93 180/120 180/120 O2 Sat by Pulse 99 99 100 Oximetry 09/05/16 09/05/16 09/05/16 10:30 10:46 11:00 Temperature Pulse Rate 70 78 70 Respiratory 21 17 22 Rate Blood Pressure 159/103 159/103 190/136 O2 Sat by Pulse 99 99 98 Oximetry 09/05/16 09/05/16 09/05/16 11:16 11:30 11:45 Temperature Pulse Rate Respiratory Rate Blood Pressure 190/136 170/107 170/107 O2 Sat by Pulse 99 98 81 L Oximetry 09/05/16 12:00 Temperature Pulse Rate 73 Respiratory 11 L Rate Blood Pressure 168/101 O2 Sat by Pulse 98 Oximetry - General Appearance General appearance: well-developed, well-nourished, obese EENT: ATNC, PERRL, mucous membranes moist Neck: no JVD, no carotid bruit Respiratory: Present: Clear to Ascultation. Absent: Rales, Wheezes Cardiology: regular, S1S2 Gastrointestinal: normoactive bowel sounds Integumentary: no rash, warm and dry Neurologic: no focal deficit, no asterixis, alert and oriented x3 Musculoskeletal: other (no edema in BLE) Psychiatric: mood/affect appropriate, cooperative - Lab 09/05/16 05:59 09/05/16 05:59 Most recent lab results Calcium 6.8 mg/dL (8.4-10.2) L 09/05/16 05:59 Phosphorus 6.6 mg/dL (2.5-4.5) H 09/05/16 05:59 Magnesium 1.6 mg/dL (1.7-2.3) L 09/04/16 05:55
[2016-09-05] MEDS ORDERED: COZAAR PO SCH (14:00)
[2016-09-05] MEDS: APRESOLINE IV PRN (14:06)
--- NOTE | 2016-09-05 19:15 | Progress Note ---
Assessment and Plan Assessment and plan: Patient is a 31-year-old male Morbidly Obese with history of end-stage renal disease on peritoneal dialysis at home, atrial fibrillation on eliquis, hypertension, hyperlipidemia presented to the emergency room today with a complaint of abdominal pain and nausea vomiting. Patients blood pressure running high at home. Patient took Clonidine with out much improvement. He then started noticing some mild periumbilical abdominal pain and had multiple bouts of no emesis. Stated he's had this in the past multiple times and its associated with his hypertension. He has had a peritoneal infection once with his dialysis in the past and he states this is nothing like that. The PD catheter is not cloudy. He took his metoprolol 100 mg, spironolactone, and .3 mg clonidine while being in the ER. Patient started on cardene drip. Patients blood pressure coming down.Patient also receiving peritoneal dialysis. Patient denies Adominal pain or nausea at this time. Patient resting on room air. O2 satuaration. 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 Patient has history of sleep apnea. He does not use CPAP at home. - Patient Problems (1) Abdominal pain Current Visit: Yes Status: Acute Qualifiers: Abdominal location: upper abdomen, unspecified Qualified Code(s): R10.10 - Upper abdominal pain, unspecified Plan to address problem: No complaint of abdominal pain now. Patient receiving Peritoneal dialysis. comfortanle with doing nn diayslsis (2) Accelerated hypertension Current Visit: No Status: Acute Plan to address problem: Patient is on cardene drip Mangement as per primary care check electrolutes (3) Atrial fibrillation Current Visit: No Status: Acute Plan to address problem: Patient is on Apixaban. Management as per primary and cardiology. (4) Morbid obesity with BMI of 40.0-44.9, adult Current Visit: No Status: Chronic Plan to address problem: Consult Nutrition for weight reduction diet. (5) ESRD on peritoneal dialysis Current Visit: No Status: Chronic Plan to address problem: Patient is on Peritoneal dialysis. Consult nephrology. (6) Obstructive sleep apnea Current Visit: Yes Status: Acute Plan to address problem: Place him empirically on CPAP during sleep 10 cm H2O pressure. ok to transfer to telemetry History Interval history: Patient alert, awake. Cardene drip is stopped.Nephrology adjusted his blood pressure medication. Patient has peritoneal dialysis today. No complaint of chest pain or shortness of breath or abdominal pain. O2 satuaration 98% on room air. sitting up and eat a lot of fast food. Hospitalist Physical - Physical exam Narrative exam: General appearance: in no acute distress. - EENT Eyes: Present: PERRL, EOM intact ENT: hearing intact, clear oral mucosa, dentition normal - Neck Neck: Present: supple, normal ROM - Respiratory Respiratory effort: normal Respiratory: bilateral: CTA - Cardiovascular Rhythm: regular Heart Sounds: Present: S1 & S2. Absent: gallop, rub - Extremities Extremities: no ischemia, No edema, Full ROM - Abdominal General gastrointestinal: soft, non-tender, non-distended, normal bowel sounds - Integumentary Integumentary: Present: clear, warm, dry - Neurologic Neurologic: CNII-XII intact, moves all extremities - Constitutional Vitals: Temp Pulse Resp BP Pulse Ox 98.4 F 82 18 127/71 98 09/05/16 17:54 09/05/16 17:54 09/05/16 17:54 09/05/16 17:54 09/05/16 17:54 General appearance: Present: no acute distress, well-nourished Results - Labs CBC & Chem 7: 09/05/16 05:59 09/05/16 05:59 Labs: Laboratory Last Values WBC 10.3 K/mm3 (4.5-11.0) 09/05/16 05:59 RBC 4.74 M/mm3 (3.65-5.03) 09/05/16 05:59 Hgb 14.1 gm/dl (11.8-15.2) 09/05/16 05:59 Hct 43.2 % (35.5-45.6) 09/05/16 05:59 MCV 91 fl (84-94) 09/05/16 05:59 MCH 30 pg (28-32) 09/05/16 05:59 MCHC 33 % (32-34) 09/05/16 05:59 RDW 14.0 % (13.2-15.2) 09/05/16 05:59 Plt Count 272 K/mm3 (140-440) 09/05/16 05:59 Lymph % (Auto) 29.5 % (13.4-35.0) 09/05/16 05:59 [place] % (Auto) 12.6 % (0.0-7.3) H 09/05/16 05:59 Eos % (Auto) 6.3 % (0.0-4.3) H 09/05/16 05:59 Baso % (Auto) 0.6 % (0.0-1.8) 09/05/16 05:59 Lymph # 3.0 K/mm3 (1.2-5.4) 09/05/16 05:59 [place] # 1.3 K/mm3 (0.0-0.8) H 09/05/16 05:59 Eos # 0.6 K/mm3 (0.0-0.4) H 09/05/16 05:59 Baso # 0.1 K/mm3 (0.0-0.1) 09/05/16 05:59 Seg Neutrophils % 51.0 % (40.0-70.0) 09/05/16 05:59 Seg Neutrophils # 5.2 K/mm3 (1.8-7.7) 09/05/16 05:59 PT 12.9 Sec. (12.2-14.9) 09/02/16 16:20 INR 0.98 (0.87-1.13) 09/02/16 16:20 APTT 34.1 Sec. (24.2-36.6) 09/02/16 16:20 Sodium 138 mmol/L (137-145) 09/05/16 05:59 Potassium 4.5 mmol/L (3.6-5.0) 09/05/16 05:59 Chloride 96.6 mmol/L (98-107) L 09/05/16 05:59 Carbon Dioxide 24 mmol/L (22-30) 09/05/16 05:59 Anion Gap 22 mmol/L 09/05/16 05:59 BUN 62 mg/dL (9-20) H 09/05/16 05:59 Creatinine 8.6 mg/dL (0.8-1.5) H 09/05/16 05:59 Estimated GFR 9 ml/min 09/05/16 05:59 BUN/Creatinine Ratio 7.20 % 09/05/16 05:59 Glucose 102 mg/dL (75-100) H 09/05/16 05:59 Lactic Acid 0.9 mmol/L (0.7-2.0) 09/02/16 21:27 Calcium 6.8 mg/dL (8.4-10.2) L 09/05/16 05:59 Phosphorus 6.6 mg/dL (2.5-4.5) H 09/05/16 05:59 Magnesium 1.6 mg/dL (1.7-2.3) L 09/04/16 05:55 Total Bilirubin 0.2 mg/dL (0.1-1.2) 09/02/16 16:20 Direct Bilirubin < 0.2 mg/dL (0-0.2) 09/02/16 16:20 Indirect Bilirubin 0.0 mg/dL 09/02/16 16:20 AST 12 units/L (5-40) 09/02/16 16:20 ALT < 5 units/L (7-56) L 09/02/16 16:20 Alkaline Phosphatase 59 units/L (35-129) 09/02/16 16:20 Total Creatine Kinase 133 units/L (55-170) 09/02/16 16:20 CK-MB (CK-2) 3.3 ng/mL (0.0-4.0) 09/02/16 16:20 CK-MB (CK-2) Rel Index 2.4 (0-4) 09/02/16 16:20 Troponin T 0.013 ng/mL (0.00-0.029) 09/02/16 16:20 Total Protein 6.2 g/dL (6.3-8.2) L 09/02/16 16:20 Albumin 3.0 g/dL (3.9-5) L 09/02/16 16:20 Albumin/Globulin Ratio 0.9 % 09/02/16 16:20 Lipase 71 units/L (13-60) H 09/02/16 16:20 Fluid Type Peritoneal 09/03/16 13:30 Fluid Color Straw 09/03/16 13:30 Fluid Appearance Clear 09/03/16 13:30 Fluid WBC 44 /mm3 09/03/16 13:30 Fluid RBC 25 /mm3 09/03/16 13:30 Fluid Seg Neutrophils 7.0 % 09/03/16 13:30 Fluid Lymphocytes 27.0 % 09/03/16 13:30 Fluid Reactive Lymphs 0 % 09/03/16 13:30 Fluid Monocytes 65.0 % 09/03/16 13:30 Fluid Eosinophils 1.0 % 09/03/16 13:30 Fluid Basophils 0 % 09/03/16 13:30
[2016-09-05] MEDS: ZOCOR PO SCH (22:18)
--- NOTE | 2016-09-05 22:23 | Progress Note ---
Assessment and Plan Patient is a 31-year-old male Morbidly Obese with history of end-stage renal disease on peritoneal dialysis at home, atrial fibrillation on eliquis, hypertension, hyperlipidemia presented to the emergency room today with a complaint of abdominal pain and nausea vomiting. Patients blood pressure running high at home. Patient took Clonidine with out much improvement. He then started noticing some mild periumbilical abdominal pain and had multiple bouts of no emesis. Stated he's had this in the past multiple times and its associated with his hypertension. He has had a peritoneal infection once with his dialysis in the past and he states this is nothing like that. The PD catheter is not cloudy. He took his metoprolol 100 mg, spironolactone, and .3 mg clonidine while being in the ER. Patient started on cardene drip. Patients blood pressure coming down.Patient also receiving peritoneal dialysis. Patient denies Adominal pain or nausea at this time. Patient resting on room air. O2 satuaration. 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 Patient has history of sleep apnea. He does not use CPAP at home. 09/04/16 Patient alert, awake. Cardene drip is stopped.Nephrology adjusted his blood pressure medication. Patient has peritoneal dialysis today. No complaint of chest pain or shortness of breath or abdominal pain. Patient alert, awake. Cardene drip is stopped.Nephrology adjusted his blood pressure medication. Patient has peritoneal dialysis today. No complaint of chest pain or shortness of breath or abdominal pain. O2 satuaration 98% on room air. - Patient Problems (1) Abdominal pain Current Visit: Yes Status: Acute Qualifiers: Abdominal location: upper abdomen, unspecified Qualified Code(s): R10.10 - Upper abdominal pain, unspecified Plan to address problem: No complaint of abdominal pain now. Patient receiving Peritoneal dialysis. (2) Accelerated hypertension Current Visit: No Status: Acute Plan to address problem: Patient is on cardene drip Mangement as per primary care 09/04/16. Patient off the cardene drip. Nephrology adjusted blood pressure medications. (3) Atrial fibrillation Current Visit: No Status: Acute Plan to address problem: Patient is on Apixaban. Management as per primary and cardiology. (4) Morbid obesity with BMI of 40.0-44.9, adult Current Visit: No Status: Chronic Plan to address problem: Consult Nutrition for weight reduction diet. (5) ESRD on peritoneal dialysis Current Visit: No Status: Chronic Plan to address problem: Patient is on Peritoneal dialysis. Consult nephrology. (6) Obstructive sleep apnea Current Visit: Yes Status: Acute Plan to address problem: Place him empirically on CPAP during sleep 10 cm H2O pressure. Subjective Date of service: 09/05/16 Principal diagnosis: ESRD on PD Interval history: Patient alert, awake. Cardene drip is stopped.Nephrology adjusted his blood pressure medication. Patient has peritoneal dialysis today. No complaint of chest pain or shortness of breath or abdominal pain. O2 satuaration 98% on room air. Objective Vital Signs - 12hr 09/05/16 09/05/16 09/05/16 10:30 10:46 11:00 Temperature Pulse Rate 70 78 70 Pulse Rate [ From Monitor] Respiratory 21 17 22 Rate Blood Pressure 159/103 159/103 190/136 Blood Pressure [Left Arm] O2 Sat by Pulse 99 99 98 Oximetry 09/05/16 09/05/16 09/05/16 11:16 11:30 11:45 Temperature Pulse Rate Pulse Rate [ From Monitor] Respiratory Rate Blood Pressure 190/136 170/107 170/107 Blood Pressure [Left Arm] O2 Sat by Pulse 99 98 81 L Oximetry 09/05/16 09/05/16 09/05/16 12:00 12:14 12:16 Temperature Pulse Rate 73 75 71 Pulse Rate [ From Monitor] Respiratory 11 L 24 20 Rate Blood Pressure 168/101 168/101 168/101 Blood Pressure [Left Arm] O2 Sat by Pulse 98 99 98 Oximetry 09/05/16 09/05/16 09/05/16 12:30 12:46 13:00 Temperature Pulse Rate 73 76 76 Pulse Rate [ From Monitor] Respiratory 15 20 21 Rate Blood Pressure 168/114 170/107 162/103 Blood Pressure [Left Arm] O2 Sat by Pulse 98 98 98 Oximetry 09/05/16 09/05/16 09/05/16 13:16 13:30 13:46 Temperature Pulse Rate 89 75 75 Pulse Rate [ From Monitor] Respiratory 20 16 23 Rate Blood Pressure 162/103 166/106 166/106 Blood Pressure [Left Arm] O2 Sat by Pulse 96 97 97 Oximetry 09/05/16 09/05/16 09/05/16 14:00 14:06 14:12 Temperature Pulse Rate 76 79 79 Pulse Rate [ From Monitor] Respiratory 22 22 Rate Blood Pressure 167/113 167/113 167/113 Blood Pressure [Left Arm] O2 Sat by Pulse 98 98 Oximetry 09/05/16 09/05/16 09/05/16 14:16 14:30 14:46 Temperature Pulse Rate 82 82 83 Pulse Rate [ From Monitor] Respiratory 24 15 25 H Rate Blood Pressure 167/113 141/87 141/87 Blood Pressure [Left Arm] O2 Sat by Pulse 98 99 98 Oximetry 09/05/16 09/05/16 09/05/16 15:00 15:16 15:30 Temperature Pulse Rate 87 92 H 84 Pulse Rate [ From Monitor] Respiratory 19 20 22 Rate Blood Pressure 161/104 161/104 137/88 Blood Pressure [Left Arm] O2 Sat by Pulse 98 98 96 Oximetry 09/05/16 09/05/16 09/05/16 15:46 16:00 16:16 Temperature Pulse Rate 81 83 84 Pulse Rate [ From Monitor] Respiratory 17 19 22 Rate Blood Pressure 137/88 148/99 148/99 Blood Pressure [Left Arm] O2 Sat by Pulse 97 99 97 Oximetry 09/05/16 17:54 Temperature 98.4 F Pulse Rate Pulse Rate [ 82 From Monitor] Respiratory 18 Rate Blood Pressure Blood Pressure 127/71 [Left Arm] O2 Sat by Pulse 98 Oximetry Constitutional: no acute distress, alert Eyes: non-icteric ENT: oropharynx moist Neck: supple, no JVD Ascultation: Bilateral: clear Cardiovascular: regular rate and rhythm Gastrointestinal: normoactive bowel sounds, soft, non-tender Integumentary: normal Extremities: no cyanosis, other (Trace edema.) Neurologic: normal mental status, non-focal exam, pupils equal and round, CN II- XII normal Psychiatric: mood appropriate CBC and BMP: 09/05/16 05:59 09/05/16 05:59 ABG, PT/INR, D-dimer: PT/INR, D-dimer PT 12.9 Sec. (12.2-14.9) 09/02/16 16:20 INR 0.98 (0.87-1.13) 09/02/16 16:20 Abnormal lab findings: Abnormal Labs 09/04/16 09/04/16 09/04/16 04:24 04:24 05:55 WBC 12.1 H [place] % (Auto) 8.6 H Eos % (Auto) 5.1 H [place] # 1.0 H Eos # 0.6 H Seg Neutrophils % 70.1 H Seg Neutrophils # 8.5 H Chloride 97.5 L BUN 69 H Creatinine 8.5 H Glucose 126 H Calcium 6.8 L Phosphorus Magnesium 1.6 L 09/04/16 09/04/16 09/05/16 07:35 07:35 05:59 WBC 12.3 H [place] % (Auto) 9.2 H 12.6 H Eos % (Auto) 4.5 H 6.3 H [place] # 1.1 H 1.3 H Eos # 0.6 H 0.6 H Seg Neutrophils % Seg Neutrophils # 8.2 H Chloride 97.2 L BUN 71 H Creatinine 9.1 H Glucose 145 H Calcium 6.6 L Phosphorus 6.8 H Magnesium 09/05/16 05:59 WBC [place] % (Auto) Eos % (Auto) [place] # Eos # Seg Neutrophils % Seg Neutrophils # Chloride 96.6 L BUN 62 H Creatinine 8.6 H Glucose 102 H Calcium 6.8 L Phosphorus 6.6 H Magnesium
[2016-09-06] MEDS: DIANEAL LOW CALCIUM W/2.5% DEXTROSE IP SCH ×3 (06:22→08:14)
[2016-09-06 06:30] LABS: Basophils % (Auto) 0.8 % (0.0-1.8); Eosinophils % (Auto) 5.1 % (0.0-4.3); Hematocrit 43.2 % (35.5-45.6); Hemoglobin 14.2 gm/dl (11.8-15.2); Mean Corpuscular HGB Conc 33 % (32-34); Mean Corpuscular Hemoglobin 29 pg (28-32); Mean Corpuscular Volume 89 fl (84-94); Platelet Count 293 K/mm3 (140-440); Red Blood Count 4.84 M/mm3 (3.65-5.03); Red Cell Distribution Width 13.8 % (13.2-15.2)
[2016-09-06 06:48] LABS: BUN/Creatinine Ratio 6.5; Calcium 7.3 mg/dL (8.4-10.2); Phosphorous 6.4 mg/dL (2.5-4.5); Potassium 4.3 mmol/L (3.6-5.0)
[2016-09-06] MEDS: CEPHULAC PO SCH ×2 (08:14→08:15)
[2016-09-06] MEDS: PHOSLO PO SCH (08:34)
[2016-09-06 08:49] VITALS: BP 147/87
[2016-09-06] MEDS: LASIX PO SCH (09:55)
[2016-09-06] MEDS: LOPRESSOR PO SCH (09:55)
[2016-09-06] MEDS: ALDACTONE PO SCH (09:56)
[2016-09-06] MEDS: PROCARDIA XL PO SCH (09:56)
[2016-09-06] MEDS: ELIQUIS PO SCH (09:56)
[2016-09-06] MEDS: ROCALTROL PO SCH (09:56)
[2016-09-06] MEDS ORDERED: COZAAR PO SCH (10:00)
--- NOTE | 2016-09-06 10:09 | Discharge Summary ---
Providers - Providers Date of Admission: 09/03/16 02:32 Attending physician: ECHO MORENO 09/03/16 02:42 Consult to Physician [CONS] Routine Consulting Provider: CHINTAN TERRELL Reason For Exam: ESRD on PD Place consult to:: Nephrology Notified:: y 09/03/16 06:04 Consult to Physician [CONS] Routine Consulting Provider: [facility] Reason For Exam: Abdominal pain Place consult to:: GI Notified:: y If yes, spoke with:: dov hall Time called:: 11:25 09/03/16 11:37 Consult to Physician [CONS] Routine Consulting Provider: EDGAR GUDINO Reason For Exam: icu admission Place consult to:: [facility] Notified:: yes Was contact made?: Yes Primary care physician: LAUNDRY ROUTEMAN Hospitalization Condition: Serious Disposition: STILL A PATIENT Exam - Constitutional Vitals: Temp Pulse Resp BP Pulse Ox 96.2 F L 88 20 147/87 100 09/06/16 08:00 09/06/16 08:00 09/06/16 08:00 09/06/16 08:00 09/06/16 08:00 Plan Follow up with: PRIMARY CAREMD [Primary Care Provider] - 3-5 Days Prescriptions: Losartan [Cozaar] 100 mg PO QDAY #30 tablet Metoprolol [Lopressor TAB] 100 mg PO BID #60 tablet NIFEdipine XL [Procardia Xl] 90 mg PO QDAY #30 tablet
== END 2016-09-06 12:37 | disposition home or self-care (01) | DRG 682 ==
LOC: ED 15:18 → 4A 09-03 02:32 → CC1 09-03 11:13 → 3A 09-05 16:55
PROVIDERS: ADMIT Internal Medicine; ATTEND Internal Medicine
DX: I12.0 Hypertensive chronic kidney disease with stage 5 chronic kidney disease or end stage renal disease (principal); N18.6 End stage renal disease; H46.9 Unspecified optic neuritis; Z68.41 Body mass index [BMI] 40.0-44.9, adult; I16.0 Hypertensive urgency; E66.01 Morbid (severe) obesity due to excess calories; E78.5 Hyperlipidemia, unspecified; M10.9 Gout, unspecified; J45.909 Unspecified asthma, uncomplicated; E83.51 Hypocalcemia; E87.5 Hyperkalemia; I48.0 Paroxysmal atrial fibrillation; G47.33 Obstructive sleep apnea (adult) (pediatric); R10.9 Unspecified abdominal pain; Z79.01 Long term (current) use of anticoagulants; Z99.2 Dependence on renal dialysis; Z79.899 Other long term (current) drug therapy; Z86.19 Personal history of other infectious and parasitic diseases; Z82.49 Family history of ischemic heart disease and other diseases of the circulatory system
CPT/HCPCS: 36415; 74176; 80048; 80074; 82140; 82550; 82553; 83690; 83735; 84100; 84484; 85025; 85610; 85730; 87116; 89051; 93005; 93010; 96374; 96375; 96376; J0360; J0610; J1170; J2270; J2405

== ENCOUNTER 2017-04-12 10:40 | Inpatient (IN) | payer MEDICARE ==
[2017-04-12] MEDS ORDERED: DUONEB *Not for PRN Use IH ONE ×2 (11:10→11:37)
--- NOTE | 2017-04-12 11:31 | XRay Report ---
AP CHEST: HISTORY: Shortness of breath Mild infiltration has developed throughout the right lung since 03/08/17. I suspect this represents unilateral pulmonary edema. If fever is present, pneumonia could be considered. The left lung is generally clear. There is mild cardiomegaly which has increased since the previous exam. No pleural effusion or pneumothorax. IMPRESSION: Mild cardiomegaly and pulmonary edema as described.
[2017-04-12] MEDS ORDERED: APRESOLINE IV ONE ×2 (11:39→12:34)
[2017-04-12 11:44] LABS: BUN/Creatinine Ratio 5.87; Calcium 7.6 mg/dL (8.4-10.2); Chloride 97.2 mmol/L (98-107); Potassium 4.6 mmol/L (3.6-5.0)
--- NOTE | 2017-04-12 11:44 | Emergency Department Report ---
ED Shortness of Breath HPI - General Chief Complaint: Dyspnea/Respdistress Stated Complaint: SOB Time Seen by Provider: 04/12/17 11:30 Source: patient, EMS Mode of arrival: Stretcher Limitations: No Limitations - History of Present Illness Initial Comments: 31-year-old male with a history of peritoneal dialysis here with complaint of nausea vomiting shortness of breath. Patient states his shortness of breath started about 2 days ago. He does peritoneal dialysis at home on a nightly basis. He is followed by [facility]. Denies fevers chills. States his dry weight is up at least 5 pounds. He has a left sided AV fistula that has never been used. MD Complaint: shortness of breath -: Gradual (2 days) Severity: severe Improves With: oxygen, rest Worsens With: lying flat, exertion Known History Of: asthma, other (stage renal disease) - Related Data Home Medications Medication Instructions Recorded Confirmed Last Taken Simvastatin [Zocor TAB] 40 mg PO QHS 06/21/16 04/12/17 04/12/17 Previous Rx's Medication Instructions Recorded Last Taken Type Pantoprazole [Protonix TAB] 20 mg PO BID #60 tablet. 11/11/16 04/12/17 Rx Nortriptyline [Pamelor] 25 mg PO QHS #30 capsule 01/16/17 04/12/17 Rx Apixaban [Eliquis] 5 mg PO BID #60 tablet 03/09/17 04/12/17 Rx Furosemide [Lasix TAB] 40 mg PO QDAY #30 tablet 03/09/17 04/12/17 Rx Lisinopril [Zestril TAB] 20 mg PO HS #30 tablet 03/09/17 04/12/17 Rx Metoprolol [Lopressor TAB] 100 mg PO BID #60 tablet 03/09/17 04/12/17 Rx NIFEdipine XL [Procardia Xl] 90 mg PO QDAY #30 tablet 03/09/17 04/12/17 Rx Allergies Allergy/AdvReac Type Severity Reaction Status Date / Time No Known Allergies Allergy Verified 08/12/13 02:52 ED Review of Systems ROS: Stated complaint: SOB Other details as noted in HPI Comment: All other systems reviewed and negative Constitutional: weakness. denies: chills, fever Eyes: denies: eye pain, eye discharge, vision change ENT: denies: ear pain, throat pain Respiratory: cough, shortness of breath, SOB with exertion, SOB at rest. denies : wheezing Cardiovascular: denies: chest pain, palpitations Endocrine: no symptoms reported Gastrointestinal: denies: abdominal pain, nausea, diarrhea Genitourinary: denies: urgency, dysuria Musculoskeletal: denies: back pain, joint swelling, arthralgia Skin: denies: rash, lesions Neurological: denies: headache, weakness, paresthesias Psychiatric: denies: anxiety, depression Hematological/Lymphatic: denies: easy bleeding, easy bruising ED Past Medical Hx - Past Medical History Hx Hypertension: Yes Hx Diabetes: Yes Hx Renal Disease: Yes (CKD STAGE 4, peritoneal dialysis) Hx Arthritis: Yes (GOUT) Hx Asthma: Yes Hx HIV: No Additional medical history: optic neuritis, AFIB - Surgical History Past Surgical History?: No Additional Surgical History: Recently diagnosed with optic neuritis. - Social History Smoking Status: Never Smoker Substance Use Type: None - Medications Home Medications: Home Medications Medication Instructions Recorded Confirmed Last Taken Type Simvastatin [Zocor TAB] 40 mg PO QHS 06/21/16 04/12/17 04/12/17 History Pantoprazole [Protonix TAB] 20 mg PO BID #60 tablet. 11/11/16 04/12/17 Rx Nortriptyline [Pamelor] 25 mg PO QHS #30 capsule 01/16/17 04/12/17 04/12/17 Rx Apixaban [Eliquis] 5 mg PO BID #60 tablet 03/09/17 04/12/17 04/12/17 Rx Furosemide [Lasix TAB] 40 mg PO QDAY #30 tablet 03/09/17 04/12/17 04/12/17 Rx Lisinopril [Zestril TAB] 20 mg PO HS #30 tablet 03/09/17 04/12/17 04/12/17 Rx Metoprolol [Lopressor TAB] 100 mg PO BID #60 tablet 03/09/17 04/12/17 04/12/17 Rx NIFEdipine XL [Procardia Xl] 90 mg PO QDAY #30 tablet 03/09/17 04/12/17 Rx ED Physical Exam - General Limitations: No Limitations General appearance: alert, in distress (respiratory) - Head Head exam: Present: atraumatic, normocephalic - Eye Eye exam: Present: normal appearance. Absent: scleral icterus, conjunctival injection - ENT ENT exam: Present: mucous membranes moist - Neck Neck exam: Present: normal inspection - Respiratory Respiratory exam: Present: respiratory distress (tachypnea), wheezes, rales - Cardiovascular Cardiovascular Exam: Present: regular rate, normal rhythm, tachycardia. Absent : systolic murmur, diastolic murmur, rubs, gallop - GI/Abdominal GI/Abdominal exam: Present: soft, normal bowel sounds. Absent: distended, tenderness - Rectal Rectal exam: Present: deferred - Extremities Exam Extremities exam: Present: normal inspection, other (2+ edema) - Back Exam Back exam: Present: normal inspection - Neurological Exam Neurological exam: Present: alert, oriented X3 - Psychiatric Psychiatric exam: Present: normal affect, normal mood - Skin Skin exam: Present: warm, dry, intact, normal color. Absent: rash ED Course Vital Signs 04/12/17 04/12/17 04/12/17 10:41 10:45 11:00 Temperature 98.8 F Pulse Rate 87 88 Pulse Rate [ Bilateral Throughout] Respiratory 26 H 12 Rate Respiratory Rate [Bilateral Throughout] Blood Pressure 206/132 222/151 O2 Sat by Pulse 84 87 80 L Oximetry 04/12/17 04/12/17 04/12/17 11:05 11:15 11:30 Temperature Pulse Rate 88 89 Pulse Rate [ 98 H 96 H Bilateral Throughout] Respiratory 24 23 32 H Rate Respiratory 18 18 Rate [Bilateral Throughout] Blood Pressure 228/149 230/136 O2 Sat by Pulse 96 87 Oximetry 04/12/17 04/12/17 04/12/17 11:45 11:50 11:57 Temperature Pulse Rate 91 H Pulse Rate [ 98 H 94 H Bilateral Throughout] Respiratory 29 H Rate Respiratory 18 16 Rate [Bilateral Throughout] Blood Pressure 230/136 O2 Sat by Pulse 96 Oximetry 04/12/17 04/12/17 04/12/17 12:00 12:11 12:21 Temperature Pulse Rate 93 H 94 H Pulse Rate [ Bilateral Throughout] Respiratory 30 H 34 H 43 H Rate Respiratory Rate [Bilateral Throughout] Blood Pressure 212/131 235/154 212/127 O2 Sat by Pulse 95 95 100 Oximetry 04/12/17 04/12/17 04/12/17 12:30 12:41 12:51 Temperature Pulse Rate Pulse Rate [ Bilateral Throughout] Respiratory 37 H 40 H 44 H Rate Respiratory Rate [Bilateral Throughout] Blood Pressure 203/127 203/127 203/114 O2 Sat by Pulse 100 100 100 Oximetry 04/12/17 04/12/17 04/12/17 13:00 13:11 13:21 Temperature Pulse Rate Pulse Rate [ Bilateral Throughout] Respiratory 42 H 42 H 42 H Rate Respiratory Rate [Bilateral Throughout] Blood Pressure 194/119 194/119 205/119 O2 Sat by Pulse 100 100 100 Oximetry 04/12/17 04/12/17 04/12/17 13:29 13:30 13:31 Temperature Pulse Rate Pulse Rate [ Bilateral Throughout] Respiratory 37 H 42 H 38 H Rate Respiratory Rate [Bilateral Throughout] Blood Pressure 205/119 188/108 188/108 O2 Sat by Pulse 98 98 99 Oximetry 04/12/17 04/12/17 04/12/17 13:33 13:35 13:37 Temperature Pulse Rate Pulse Rate [ Bilateral Throughout] Respiratory 42 H 47 H 40 H Rate Respiratory Rate [Bilateral Throughout] Blood Pressure 188/108 188/108 188/108 O2 Sat by Pulse 98 96 96 Oximetry 04/12/17 13:39 Temperature Pulse Rate Pulse Rate [ Bilateral Throughout] Respiratory 38 H Rate Respiratory Rate [Bilateral Throughout] Blood Pressure 182/102 O2 Sat by Pulse 97 Oximetry ED Medical Decision Making - Lab Data Result diagrams: 04/12/17 10:57 04/12/17 10:57 Laboratory Results - last 24 hr 04/12/17 04/12/17 10:57 10:57 WBC 8.5 RBC 2.99 L Hgb 8.8 L Hct 26.9 L MCV 90 MCH 30 MCHC 33 RDW 15.7 H Plt Count 307 Lymph % (Auto) 12.4 L [place] % (Auto) 7.5 H Eos % (Auto) 3.3 Baso % (Auto) 0.9 Lymph # 1.1 L [place] # 0.6 Eos # 0.3 Baso # 0.1 Seg Neutrophils % 75.9 H Seg Neutrophils # 6.5 Sodium 138 Potassium 4.6 Chloride 97.2 L Carbon Dioxide 19 L Anion Gap 26 BUN 94 H Creatinine 16.0 H Estimated GFR 4 BUN/Creatinine Ratio 5.87 Glucose 94 Calcium 7.6 L - EKG Data -: EKG Interpreted by Co - EKG Data 04/12/17 11:53 Sinus tach [address] segment changes and normal axis - Medical Decision Making 31-year-old male here with a history of peritoneal dialysis clearly volume overloaded. Patient is given a short of breath. Will need hemodialysis to remove fluid as he is clearly volume overloaded. 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 Discussed case with Dr. Bull of the hospital medicine service. Plan to send the patient to dialysis immediately from the emergency department. His chest x-ray shows volume overload awaiting the rest of his labs at this point. Nephrology aware and has seen the patient. They plan to attempt peritoneal dialysis prior to hemodialysis. Dr. Bull aware Portions of this chart were dictated with dictation software. There may be dictation errors contained within this note. Critical Care Time: Yes Critical care attestation.: If time is entered above; I have spent that time in minutes in the direct care of this critically ill patient, excluding procedure time. Critical Care Time: 35 minutes ED Disposition Clinical Impression: Hypertension, Volume overload, Hypertensive urgency, Elevated troponin Disposition: OP ADMIT IP TO THIS HOSP Is pt being admited?: Yes Condition: Stable
[2017-04-12 11:48] LABS: Basophils % (Auto) 0.9 % (0.0-1.8); Eosinophils % (Auto) 3.3 % (0.0-4.3); Hematocrit 26.9 % (35.5-45.6); Hemoglobin 8.8 gm/dl (11.8-15.2); Mean Corpuscular HGB Conc 33 % (32-34); Mean Corpuscular Hemoglobin 30 pg (28-32); Mean Corpuscular Volume 90 fl (84-94); Platelet Count 307 K/mm3 (140-440); Red Blood Count 2.99 M/mm3 (3.65-5.03); Red Cell Distribution Width 15.7 % (13.2-15.2); White Blood Count 8.5 K/mm3 (4.5-11.0)
[2017-04-12 12:17] LABS: ISTAT Base Excess -5; ISTAT HCO3 19.3; ISTAT PCO2 27.6 (35-45); ISTAT PH 7.451 (7.35-7.45); ISTAT PO2 58 (80-105); ISTAT SO2 91; ISTAT TCO2 20
[2017-04-12 12:25] LABS: Cholesterol 182 mg/dL (50-199)
--- NOTE | 2017-04-12 12:32 | Consultation ---
History of Present Illness - Reason for Consult Consult date: 04/12/17 end stage renal disease - History of Present Illness This is a 31 year old male who presents to the E.R today with a chief complaint of coughing up blood and shortness of breath and edema to lower extremities for 2 days. Patient states that he was out of his nightly cycler PD solutions for 1 week and so could not use his cycler machine at nights. He states the delivery truck is scheduled to bring him new cycler bags tomorrow. 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 Patient also states he didn't have any red (4.25% solution ) bags. Patient has history of ESRD and is on Peritoneal Dialysis and has history of being non-complaint on PD. Patient has a left AVF placed on 12/06/16 as we have discussed with patient before that he may need to be converted to hemodialysis in the near future. Patient wants to remain on PD for as long as possible. CXR showed Pulmonary Edema. We are being consulted for management of this patient's ESRD Past History Past Medical History: dialysis, ESRD, hypertension, hyperlipidemia, renal failure Past Surgical History: Other (Left AVF placement, PD catheter placement) Social history: no significant social history Family history: no significant family history Medications and Allergies Allergies Allergy/AdvReac Type Severity Reaction Status Date / Time No Known Allergies Allergy Verified 08/12/13 02:52 Home Medications Medication Instructions Recorded Confirmed Last Taken Type Simvastatin [Zocor TAB] 40 mg PO QHS 06/21/16 04/12/17 04/12/17 History Pantoprazole [Protonix TAB] 20 mg PO BID #60 tablet. 11/11/16 04/12/17 Rx Nortriptyline [Pamelor] 25 mg PO QHS #30 capsule 01/16/17 04/12/17 04/12/17 Rx Apixaban [Eliquis] 5 mg PO BID #60 tablet 03/09/17 04/12/17 04/12/17 Rx Furosemide [Lasix TAB] 40 mg PO QDAY #30 tablet 03/09/17 04/12/17 04/12/17 Rx Lisinopril [Zestril TAB] 20 mg PO HS #30 tablet 03/09/17 04/12/17 04/12/17 Rx Metoprolol [Lopressor TAB] 100 mg PO BID #60 tablet 03/09/17 04/12/17 04/12/17 Rx NIFEdipine XL [Procardia Xl] 90 mg PO QDAY #30 tablet 03/09/17 04/12/17 Rx Review of Systems Constitutional: weight gain, no weight loss, no fever, no chills Ears, nose, mouth and throat: no ear pain, no ear discharge, no tinnitis, no decreased hearing, no nose pain, no nasal congestion Cardiovascular: edema, shortness of breath, dyspnea on exertion, high blood pressure, no chest pain, no orthopnea, no palpitations Respiratory: cough, cough with sputum, hemoptysis, shortness of breath, dyspnea on exertion Gastrointestinal: nausea, vomiting, no abdominal pain, no diarrhea, no constipation, no change in bowel habits, no hematemesis Genitourinary Male: no hematuria, no flank pain, no discharge, no urinary frequency, no urinary hesitancy Musculoskeletal: no neck stiffness, no neck pain, no shooting arm pain, no arm numbness/tingling, no low back pain, no shooting leg pain, no leg numbness/ tingling Integumentary: no rash, no pruritis, no redness, no sores, no wounds, no jaundice Neurological: no paralysis, no parathesias, no numbness, no tingling, no seizures, no syncope Psychiatric: no memory loss, no change in sleep habits, no sleep disturbances, no hypersomnia, no change in appetite, no suicidal ideation, no disorientation Endocrine: no heat intolerance, no polyphagia, no excessive thirst, no polydipsia, no polyuria Hematologic/Lymphatic: no easy bruising, no easy bleeding, no lymphadenopathy, no lymphedema Exam - Vital Signs Vital signs: Vital Signs Pulse Ox 84 04/12/17 10:41 - General Appearance General appearance: well-developed, appears stated age, fatigue EENT: ATNC, PERRL, hearing intact, vision intact Neck: Present: neck supple, trachea midline Respiratory: Decreased Breath Sounds Heart: tachycardia, S1S2 Gastrointestinal: Present: normoactive bowel sounds Integumentary: warm and dry Neurologic: alert and oriented x3 Musculoskeletal: Present: joint swelling, other (Left AVF has positive bruit and thrill) Results - Lab Results 04/12/17 10:57 04/12/17 10:57 Most recent lab results Calcium 7.6 mg/dL (8.4-10.2) L 04/12/17 10:57 Assessment and Plan - Patient Problems (1) SOB (shortness of breath) Current Visit: Yes Status: Acute Plan to address problem: Secondary to Pulmonary Edema Resume dialysis (2) ESRD on peritoneal dialysis Current Visit: No Status: Chronic Plan to address problem: Peritoneal Dialysis orders have been placed. Ordered 4.25% dextrose solution to dwell for 3 hours x 2, then 2.5% dextrose solution every 4 hours Patient may need hemodialysis initiation if shortness of breath does not improve and if Left AVF is functional, however, patient refuses to convert from Peritoneal Dialysis to Hemodialysis. Discussed with patient that converting to hemodialysis will be necessary if no respiratory improvement after couple PD exchanges Left AVF placed 12/06/[address] Lorenzo, has positive/good bruit and thrill Fluid restriction of 1 liter per day Renally dose medications Obtain daily weights Renal diet Monitor I/O's (3) Accelerated hypertension Current Visit: No Status: Acute Plan to address problem: Start/resume on anti-hypertensive agents (4) Anemia in ESRD (end-stage renal disease) Current Visit: Yes Status: Acute Plan to address problem: Start Epogen when blood pressures are controlled
[2017-04-12] MEDS ORDERED: TYLENOL PO PRN (12:42)
[2017-04-12] MEDS ORDERED: PROVENTIL IH PRN (12:42)
--- NOTE | 2017-04-12 12:42 | History and Physical Report ---
History of Present Illness Chief complaint: I cant breathe History of present illness: 31 YO Male with ESRD on PD, MO,HTN, DM, OA, Asthma, A Fib, Optic Neuritis presents to ED for evaluation. Pt states that he has experienced shortness of breath for the past 2 days with worsening symptoms over the past 8 hours as well as multiple episodes of nausea and vomiting. Pt denies fever, chills, CP, Palpitatons, Syncope, BRBPR, Recent ill contacts, Seizures, or known ill contacts. Past History Past Medical History: atrial fib, arthritis, diabetes, ESRD, hypertension Past Surgical History: Other (L AVF) Social history: single. denies: smoking, alcohol abuse, prescription drug abuse , IV drug use Family history: diabetes, hypertension Medications and Allergies Allergies Allergy/AdvReac Type Severity Reaction Status Date / Time No Known Allergies Allergy Verified 08/12/13 02:52 Home Medications Medication Instructions Recorded Confirmed Last Taken Type Simvastatin [Zocor TAB] 40 mg PO QHS 06/21/16 04/12/17 04/12/17 History Pantoprazole [Protonix TAB] 20 mg PO BID #60 tablet. 11/11/16 04/12/17 Rx Nortriptyline [Pamelor] 25 mg PO QHS #30 capsule 01/16/17 04/12/17 04/12/17 Rx Apixaban [Eliquis] 5 mg PO BID #60 tablet 03/09/17 04/12/17 04/12/17 Rx Furosemide [Lasix TAB] 40 mg PO QDAY #30 tablet 03/09/17 04/12/17 04/12/17 Rx Lisinopril [Zestril TAB] 20 mg PO HS #30 tablet 03/09/17 04/12/17 04/12/17 Rx Metoprolol [Lopressor TAB] 100 mg PO BID #60 tablet 03/09/17 04/12/17 04/12/17 Rx NIFEdipine XL [Procardia Xl] 90 mg PO QDAY #30 tablet 03/09/17 04/12/17 Rx Active Meds: Active Medications Peritoneal Dialysis Solution (Dianeal Low Calcium W/4.25% Dextrose) 2,000 ml IP ONCE.ED ONE Stop: 04/12/17 13:31 Peritoneal Dialysis Solution (Dianeal Low Calcium W/4.25% Dextrose) 2,000 ml IP ONCE.ED ONE Stop: 04/12/17 16:31 Peritoneal Dialysis Solution (Dianeal Low Calcium W/2.5% Dextrose) 2,000 ml IP Q4HR [facility] Review of Systems Constitutional: weight gain, no weight loss, no fever, no chills, no sweats Ears, nose, mouth and throat: no ear pain, no ear discharge, no decreased hearing, no nose pain, no nasal discharge Cardiovascular: no chest pain, no rapid/irregular heart beat, no edema, no lightheadedness Respiratory: shortness of breath, no cough, no cough with sputum, no excessive sputum Gastrointestinal: no nausea, no vomiting Genitourinary Male: no dysuria, no hematuria, no flank pain, no discharge, no urinary frequency Rectal: no pain, no incontinence, no bleeding Musculoskeletal: no neck stiffness, no neck pain, no shooting arm pain, no arm numbness/tingling Integumentary: no rash, no pruritis, no redness, no sores Neurological: no head injury, no transient paralysis, no paralysis, no weakness , no parathesias, no tingling Psychiatric: no anxiety, no memory loss, no change in sleep habits, no sleep disturbances, no insomnia Endocrine: no cold intolerance, no heat intolerance, no polyphagia, no excessive thirst, no polydipsia Hematologic/Lymphatic: no easy bruising, no easy bleeding Allergic/Immunologic: no urticaria, no allergic rhinitis Exam - Constitutional Vitals: Temp Pulse Resp BP Pulse Ox 98.8 F 94 H 43 H 212/127 100 04/12/17 10:45 04/12/17 12:11 04/12/17 12:21 04/12/17 12:21 04/12/17 12:21 General appearance: Present: mild distress - EENT Eyes: Present: PERRL ENT: hearing intact, clear oral mucosa - Neck Neck: Present: supple, normal ROM - Respiratory Respiratory effort: labored Respiratory: bilateral: diminished - Cardiovascular Rhythm: irregularly irregular Heart Sounds: Absent: systolic murmur, diastolic murmur - Extremities Extremities: pulses symmetrical, No edema Extremity abnormal: edema Peripheral Pulses: within normal limits - Abdominal General gastrointestinal: Present: soft, non-tender, non-distended, normal bowel sounds Male genitourinary: Present: normal - Integumentary Integumentary: Present: clear, warm, dry - Musculoskeletal Musculoskeletal: generalized weakness - Psychiatric Psychiatric: appropriate mood/affect, intact judgment & insight - Neurologic Neurologic: CNII-XII intact, moves all extremities Results - Labs CBC & Chem 7: 04/12/17 10:57 04/12/17 10:57 Labs: Abnormal lab results 04/12/17 04/12/17 04/12/17 Range/Units 10:57 10:57 10:57 RBC 2.99 L (3.65-5.03) M/mm3 Hgb 8.8 L (11.8-15.2) gm/dl Hct 26.9 L (35.5-45.6) % RDW 15.7 H (13.2-15.2) % Lymph % (Auto) 12.4 L (13.4-35.0) % [place] % (Auto) 7.5 H (0.0-7.3) % Lymph # 1.1 L (1.2-5.4) K/mm3 Seg Neutrophils % 75.9 H (40.0-70.0) % POC ABG pH (7.35-7.45) POC ABG pCO2 (35-45) POC ABG pO2 (80-105) Chloride 97.2 L (98-107) mmol/L Carbon Dioxide 19 L (22-30) mmol/L BUN 94 H (9-20) mg/dL Creatinine 16.0 H (0.8-1.5) mg/dL Calcium 7.6 L (8.4-10.2) mg/dL Troponin T 0.114 H* (0.00-0.029) ng/mL 04/12/17 Range/Units 12:11 RBC (3.65-5.03) M/mm3 Hgb (11.8-15.2) gm/dl Hct (35.5-45.6) % RDW (13.2-15.2) % Lymph % (Auto) (13.4-35.0) % [place] % (Auto) (0.0-7.3) % Lymph # (1.2-5.4) K/mm3 Seg Neutrophils % (40.0-70.0) % POC ABG pH 7.451 H (7.35-7.45) POC ABG pCO2 27.6 L (35-45) POC ABG pO2 58 L (80-105) Chloride (98-107) mmol/L Carbon Dioxide (22-30) mmol/L BUN (9-20) mg/dL Creatinine (0.8-1.5) mg/dL Calcium (8.4-10.2) mg/dL Troponin T (0.00-0.029) ng/mL Assessment and Plan - Patient Problems (1) Acute respiratory failure Current Visit: Yes Status: Acute Qualifiers: Respiratory failure complication: R Plan to address problem: Supplemental oxygen, nebs, aspiration precautions, urgent dialysis, nephrology consulted in ED, (2) ESRD (end stage renal disease) Current Visit: Yes Status: Acute Plan to address problem: Pt requesting PD at this time, Pt refusing HD. Nephrology consulted, fluid restriction, renal diet, urgent dialysis (3) Anemia in ESRD (end-stage renal disease) Current Visit: No Status: Chronic Plan to address problem: Stable, No transfusion at this time, epogen as per renal team. (4) Hypertensive urgency Current Visit: Yes Status: Acute Plan to address problem: monitor bp q shift, Goal BP is 150-160 systolic overnight. hydralazine prn, resume home medication (5) Atrial fibrillation Current Visit: No Status: Acute Qualifiers: Atrial fibrillation type: A Plan to address problem: resume therapeutic anticoagulation, telemetry, supportive care. (6) DVT prophylaxis Current Visit: Yes Status: Acute
[2017-04-12 12:46] LABS: HDL Cholesterol 36 mg/dL (40-59); LDL Cholesterol,Direct 126 mg/dL (50-130); Triglycerides 103 mg/dL (2-149)
--- NOTE | 2017-04-12 13:13 | Admit Criteria Form ---
Admission Criteria Documentation: RENAL FAILURE, CHRONIC Clinical Indications for Admission to Inpatient Care (Place 'X' for any and all applicable criteria): Admission is indicated for 1 or more of the following(1)(2)(3)(4)(5)(6)(7)(8) [X ]I. Inpatient admission required[B] rather than observation care (see Renal Failure, Chronic: Observation Care) because of 1 or more of the following: [ ]a. Hemodynamic instability [ ]b) Uremic symptoms (eg, pericarditis, pleural effusion, nausea, vomiting) too severe for, or not responsive (eg, for over 24 hours) to, emergency department or observation care dialysis or treatment regimen [X ]c) Significant respiratory findings (eg, pulmonary edema) that are severe (eg, Hypoxemia) or persist despite observation care treatment (eg, Tachypnea) [ ]d) Clinically significant metabolic abnormality (eg, acidosis) that is severe or persists despite observation care treatment [ ]e) Clinically significant electrolyte abnormality that requires inpatient care (eg, hyperkalemia with severe ECG findings)[C](14)(15) [ ]f) Hypertension requiring inpatient care (eg, SBP > 220 mm Hg or DBP > 120 mm Hg despite observation care treatment) [ ]g) Urgent treatment of renal failure (eg, dialysis) necessary on inpatient basis (eg, not feasible or appropriate in outpatient or observational care setting) as indicated by 1 or more of the followin) Vascular access not previously established or not useable (eg, treatment-resistant blockage) such that new temporary access is needed that is not appropriate for other than short-term inpatient usage (eg, femoral access until other access established or repaired) 2) Patient new to dialysis and timing of subsequent dialysis (eg, beyond that provided in observation care) unclear such that inpatient monitoring is necessary as patient may need repeat dialysis sooner than is routine [ ]h) Continuous intravenous infusion of anticoagulation, platelet inhibitor, vasoactive, or antiarrhythmic medication [ ] i) Pulmonary artery catheter monitoring [ ]j) Temporary pacemaker placement [ ]k) Emergent pericardiocentesis [ ]l) Other condition, treatment, or monitoring requiring inpatient admission [ ]II. Unexplained syncope [A] [ ]III. Recurrent seizures [ ]IV. Severe infections not treatable in outpatient setting (eg, peritonitis)(9 ) [ ]V. Cardiac arrhythmias of immediate concern [ ]. Encephalopathy (eg. altered mental status that is severe or persistent) [ ]VII.Bleeding abnormalities (eg, platelet dysfunction) with active (eg, gastrointestinal) bleeding Extended stay beyond goal length of stay may be needed for (3)(4)(35)(36): [ ]a) Continuing uremic complications [ ]b) Comorbidities or complications The original [facility] [employer] content created by [employer] has been revised. The portions of the content which have been revised are identified through the use of italic text or in bold, and [facility] has neither reviewed nor approved the modified material. All other unmodified content is copyright [facility]. Please see references footnoted in the original [facility] [employer] edition 2017 Admission Criteria Met: Yes
[2017-04-12] MEDS ORDERED: [UNRECOGNIZED DRUG - OTHER] IP ONE ×2 (13:30→16:30)
[2017-04-12] MEDS ORDERED: DEXTROSE IP ONE ×2 (13:30→16:30)
[2017-04-12] MEDS: DIANEAL LOW CALCIUM W/2.5% DEXTROSE IP SCH (19:57)
[2017-04-12] MEDS: PULMICORT IH SCH (21:36)
[2017-04-12] MEDS: DUONEB *Not for PRN Use IH SCH (21:36)
[2017-04-12] MEDS: BROVANA NEBU IH SCH (21:36)
[2017-04-13] MEDS: APRESOLINE IV PRN ×3 (00:38→14:38)
[2017-04-13] MEDS: DIANEAL LOW CALCIUM W/2.5% DEXTROSE IP SCH ×6 (00:58→22:55)
[2017-04-13] MEDS: DUONEB *Not for PRN Use IH SCH ×4 (02:35→20:21)
[2017-04-13] MEDS: BROVANA NEBU IH SCH ×2 (09:19→20:21)
[2017-04-13] MEDS: PULMICORT IH SCH ×2 (09:19→20:21)
[2017-04-13] MEDS ORDERED: NORMODYNE IV PRN (09:39)
[2017-04-13] MEDS ORDERED: ASPIRIN PO SCH (10:00)
[2017-04-13] MEDS ORDERED: NORVASC PO SCH (10:00)
[2017-04-13] MEDS ORDERED: COREG PO SCH ×2 (10:00→14:35)
[2017-04-13 12:56] LABS: Albumin 3.1 g/dL (3.9-5); Albumin/Globulin Ratio 1.6 %; BUN/Creatinine Ratio 5.64; Bilirubin,Total 0.7 mg/dL (0.1-1.2); Calcium 7.6 mg/dL (8.4-10.2); Chloride 100.2 mmol/L (98-107); Phosphorous 6.6 mg/dL (2.5-4.5); Potassium 4.2 mmol/L (3.6-5.0); Total Protein 5.1 g/dL (6.3-8.2)
[2017-04-13] MEDS: HEPARIN SUB-Q SCH ×2 (14:39→22:23)
--- NOTE | 2017-04-13 14:40 | Progress Note ---
Assessment and Plan (1) SOB (shortness of breath) Current Visit: Yes Status: Acute Plan to address problem: Secondary to Pulmonary Edema cont PD (2) ESRD on peritoneal dialysis Current Visit: No Status: Chronic Plan to address problem: cont current PD regimen Left AVF placed 12/06/[address] Lorenzo, has positive/good bruit and thrill, may need HD for UF Fluid restriction of 1 liter per day Renally dose medications Obtain daily weights Renal diet Monitor I/O's (3) Accelerated hypertension Current Visit: No Status: Acute Plan to address problem: will increase coreg to 25 mg BID (4) Anemia in ESRD (end-stage renal disease) Current Visit: Yes Status: Acute Plan to address problem: epogen when BP allows Subjective Date of service: 04/13/17 Principal diagnosis: ESRD Interval history: tolerating PD, SOB is slowly improving Objective - Vital Signs Vital signs: Vital Signs - 12hr 04/13/17 04/13/17 04/13/17 06:07 06:24 08:00 Temperature 98.3 F Pulse Rate 89 102 H 90 Pulse Rate [ Bilateral Throughout] Respiratory 20 Rate Respiratory Rate [Bilateral Throughout] Blood Pressure 213/97 188/100 O2 Sat by Pulse 95 Oximetry 04/13/17 04/13/17 04/13/17 09:20 09:43 09:47 Temperature Pulse Rate 98 H Pulse Rate [ 101 H 100 H Bilateral Throughout] Respiratory 42 H Rate Respiratory 37 H 41 H Rate [Bilateral Throughout] Blood Pressure O2 Sat by Pulse 98 Oximetry - General Appearance General appearance: well-developed, well-nourished, obese EENT: ATNC, PERRL, mucous membranes dry Neck: no JVD, no carotid bruit Respiratory: Present: Decreased Breath Sounds Cardiology: regular, S1S2 Gastrointestinal: normoactive bowel sounds, no tenderness, no distended, obese Integumentary: no rash, warm and dry Neurologic: no focal deficit, no asterixis, alert and oriented x3 Musculoskeletal: other (trace pitting edema in BLE) Psychiatric: mood/affect appropriate, cooperative - Lab 04/12/17 10:57 04/13/17 12:09 Most recent lab results Calcium 7.6 mg/dL (8.4-10.2) L 04/13/17 12:09 Phosphorus 6.60 mg/dL (2.5-4.5) H 04/13/17 12:09
[2017-04-13] MEDS ORDERED: COREG PO ONE (15:00)
--- NOTE | 2017-04-13 16:49 | Consultation ---
<FILIBERTO THAKKAR - Last Filed: 04/13/17 16:56> History of Present Illness Consult date: 04/13/17 Consult reason: elevated troponin History of present illness: This is a 31yr old male with end-stage renal disease on peritoneal dialysis. He has a history of Hypertension, obesity, and paroxysmal atrial fibrillation for which he is on Eliquis. His most recent echocardiogram revealed normal left ventricular systolic function, ejection fraction 65-70%. He presented to the ED with complaints of worsening shortness of breath, admitted with volume overload secondary to noncompliance with PD. He is currently on bipap therapy. Cardiac consultation was requested for elevated troponin likely in the setting on renal disease, creatinine of 16.0 on presentation. Patient denies chest pain. His ECG shows a sinus rhythm. No acute ischemic changes. Past History Past Medical History: atrial fib, arthritis, diabetes, ESRD, hypertension Past Surgical History: Other (L AVF) Social history: single. denies: smoking, alcohol abuse, prescription drug abuse , IV drug use Family history: diabetes, hypertension Medications and Allergies Allergies Allergy/AdvReac Type Severity Reaction Status Date / Time No Known Allergies Allergy Verified 08/12/13 02:52 Home Medications Medication Instructions Recorded Confirmed Last Taken Type Simvastatin [Zocor TAB] 40 mg PO QHS 06/21/16 04/12/17 04/12/17 History Pantoprazole [Protonix TAB] 20 mg PO BID #60 tablet. 11/11/16 04/12/17 Rx Nortriptyline [Pamelor] 25 mg PO QHS #30 capsule 01/16/17 04/12/17 04/12/17 Rx Apixaban [Eliquis] 5 mg PO BID #60 tablet 03/09/17 04/12/17 04/12/17 Rx Furosemide [Lasix TAB] 40 mg PO QDAY #30 tablet 03/09/17 04/12/17 04/12/17 Rx Lisinopril [Zestril TAB] 20 mg PO HS #30 tablet 03/09/17 04/12/17 04/12/17 Rx Metoprolol [Lopressor TAB] 100 mg PO BID #60 tablet 03/09/17 04/12/17 04/12/17 Rx NIFEdipine XL [Procardia Xl] 90 mg PO QDAY #30 tablet 0704/12/17 Rx Active Meds: Active Medications Acetaminophen (Tylenol) 650 mg PO Q4H PRN PRN Reason: Pain MILD(1-3)/Fever >100.5/VELARDE Albuterol (Proventil) 2.5 mg IH Q4HRT PRN PRN Reason: Shortness Of Breath Last Admin: 04/12/17 14:45 Dose: 2.5 mg Albuterol/Ipratropium (Duoneb *Not For Prn Use*) 1 ampul IH Q6HRT [facility] Last Admin: 04/13/17 14:53 Dose: 1 ampul Amlodipine Besylate (Norvasc) 10 mg PO QDAY [facility] Last Admin: 04/13/17 10:28 Dose: 10 mg Arformoterol Tartrate (Brovana Nebu) 15 mcg IH Q12HRT [facility] Last Admin: 04/13/17 09:19 Dose: 15 mcg Aspirin (Aspirin) 325 mg PO QDAY [facility] Last Admin: 04/13/17 10:28 Dose: 325 mg Atorvastatin Calcium (Lipitor) 40 mg PO QHS EZRA Budesonide (Pulmicort) 0.5 mg IH Q12HRT [facility] Last Admin: 04/13/17 09:19 Dose: 0.5 mg Carvedilol (Coreg) 25 mg PO Q12HR [facility] Heparin Sodium (Porcine) (Heparin) 5,000 unit SUB-Q Q8HR [facility] Last Admin: 04/13/17 14:39 Dose: 5,000 unit Hydralazine HCl (Apresoline) 10 mg IV Q6HR PRN PRN Reason: Hypertension Last Admin: 04/13/17 14:38 Dose: 10 mg Labetalol HCl (Normodyne) 10 mg IV PRN PRN PRN Reason: Hypertension Peritoneal Dialysis Solution (Dianeal Low Calcium W/2.5% Dextrose) 2,000 ml IP Q4H [facility] Last Admin: 04/13/17 11:38 Dose: 2,000 ml Physical Examination Vital Signs Pulse Ox 84 04/12/17 10:41 Cardiac: Positive: Reg Rate and Rhythm Results 04/12/17 10:57 04/13/17 12:09 Cardiac Enzymes 04/13/17 Range/Units 12:09 AST 16 (5-40) units/L Comprehensive Metabolic Panel 08/24/17 Range/Units 12:09 Sodium 141 (137-145) mmol/L Potassium 4.2 (3.6-5.0) mmol/L Chloride 100.2 (98-107) mmol/L Carbon Dioxide 20 L (22-30) mmol/L BUN 92 H (9-20) mg/dL Creatinine 16.3 H (0.8-1.5) mg/dL Glucose 109 H (75-100) mg/dL Calcium 7.6 L (8.4-10.2) mg/dL AST 16 (5-40) units/L ALT 11 (7-56) units/L Alkaline Phosphatase 34 L (35-129) units/L Total Protein 5.1 L (6.3-8.2) g/dL Albumin 3.1 L (3.9-5) g/dL Assessment and Plan Acute respiratory failure on bipap therapy Hypertensive urgency Volume overload ESRD on peritoneal dialysis Paroxysmal Afib currently in sinus rhythm on eliquis for anticoagulation EF 65% on echo 10/2016 Elevated troponin, nonspecific likely secondary to renal disease. <LEON ROE - Last Filed: 04/13/17 17:17> Medications and Allergies Active Meds: Active Medications Acetaminophen (Tylenol) 650 mg PO Q4H PRN PRN Reason: Pain MILD(1-3)/Fever >100.5/VELARDE Albuterol (Proventil) 2.5 mg IH Q4HRT PRN PRN Reason: Shortness Of Breath Last Admin: 04/12/17 14:45 Dose: 2.5 mg Albuterol/Ipratropium (Duoneb *Not For Prn Use*) 1 ampul IH Q6HRT [facility] Last Admin: 04/13/17 14:53 Dose: 1 ampul Amlodipine Besylate (Norvasc) 10 mg PO QDAY [facility] Last Admin: 04/13/17 10:28 Dose: 10 mg Arformoterol Tartrate (Brovana Nebu) 15 mcg IH Q12HRT [facility] Last Admin: 04/13/17 09:19 Dose: 15 mcg Aspirin (Aspirin) 325 mg PO QDAY [facility] Last Admin: 04/13/17 10:28 Dose: 325 mg Atorvastatin Calcium (Lipitor) 40 mg PO QHS [facility] Budesonide (Pulmicort) 0.5 mg IH Q12HRT [facility] Last Admin: 04/13/17 09:19 Dose: 0.5 mg Carvedilol (Coreg) 25 mg PO Q12HR [facility] Heparin Sodium (Porcine) (Heparin) 5,000 unit SUB-Q Q8HR [facility] Last Admin: 04/13/17 14:39 Dose: 5,000 unit Hydralazine HCl (Apresoline) 10 mg IV Q6HR PRN PRN Reason: Hypertension Last Admin: 04/13/17 14:38 Dose: 10 mg Labetalol HCl (Normodyne) 10 mg IV PRN PRN PRN Reason: Hypertension Peritoneal Dialysis Solution (Dianeal Low Calcium W/2.5% Dextrose) 2,000 ml IP Q4H [facility] Last Admin: 04/13/17 11:38 Dose: 2,000 ml Physical Examination Vital Signs Pulse Ox 84 04/12/17 10:41 Results 04/12/17 10:57 04/13/17 12:09 Cardiac Enzymes 04/13/17 Range/Units 12:09 AST 16 (5-40) units/L Comprehensive Metabolic Panel 04/13/17 Range/Units 12:09 Sodium 141 (137-145) mmol/L Potassium 4.2 (3.6-5.0) mmol/L Chloride 100.2 (98-107) mmol/L Carbon Dioxide 20 L (22-30) mmol/L BUN 92 H (9-20) mg/dL Creatinine 16.3 H (0.8-1.5) mg/dL Glucose 109 H (75-100) mg/dL Calcium 7.6 L (8.4-10.2) mg/dL AST 16 (5-40) units/L ALT 11 (7-56) units/L Alkaline Phosphatase 34 L (35-129) units/L Total Protein 5.1 L (6.3-8.2) g/dL Albumin 3.1 L (3.9-5) g/dL Assessment and Plan - Patient Problems (1) Volume overload Current Visit: Yes Status: Acute Qualifiers: Hypervolemia type: H Plan to address problem: Patient developed volume overload as a result of non compliance with his peritoneal dialysis. Management of his dialysis per nephrology service. His most recent echocardiogram in October 2016 documented a left ventricular systolic ejection fraction of 65-70%. (2) Elevated troponin Current Visit: Yes Status: Acute Plan to address problem: Isolated increase in troponin this clinical setting is likely nonspecific finding, likely associated with his chronic kidney disease.
[2017-04-13] MEDS: COREG PO SCH (22:23)
--- NOTE | 2017-04-13 22:27 | Progress Note ---
Assessment and Plan Acute hypoxic orespiratory failure Due to pulmonary edema from volume overload due to noncompliance with peritoneal dialysis Continue BiPAP and along with Supplemental oxygen, nebs, aspiration precautions , Status post urgent dialysis, nephrology consulted in ED, Wean off BiPAP as tolerated ESRD (end stage renal disease) On PD at this time, Pt refusing HD. Nephrology following, fluid restriction, renal diet Anemia in ESRD (end-stage renal disease) Stable, No transfusion at this time, epogen as per renal team. Malignant Hypertension monitor bp q shift, Goal BP is 150-160 systolic overnight. hydralazine prn, adjust BP medications as needed Chronic Atrial fibrillation resume therapeutic anticoagulation, telemetry, supportive care. Elevated troponin Likely due to malignant hypertension and underlying volume overload from end stage renal disease We'll continue to trend troponin We'll continue aspirin and beta marj and statin We'll consult cardiology for any further recommendation Morbid obesity Consult dietary about nutrition recommendation Brief history: This is a 31yr old male with end-stage renal disease on peritoneal dialysis, Hypertension, morbid obesity, and paroxysmal atrial fibrillation for which he is on Eliquis, most recent echocardiogram revealed normal left ventricular systolic function, ejection fraction 65-70% (on 10/2016 ) presented to the ED with complaints of worsening shortness of breath, admitted with volume overload secondary to noncompliance with PD. He also noted to have a blood pressure of 213/ 137 on admission. His x-ray on admission was significant for cardiomegaly and pulmonary edema He is currently on bipap therapy. Subjective Date of service: 04/13/17 Principal diagnosis: ESRD Interval history: Patient seen and examined. Medical records and medication list reviewed. No acute event overnight noted by the RN. Patient remained on BiPAP, tolerated diet today. Troponin trends to be elevated, baseline troponin unknown Discussed plan of care at bedside with patient. Objective - Exam Narrative Exam: GENERAL: well-developed morbidly obese -[place] male lying on bed appeared to be in no discomfort. HEENT: Normocephalic. Atraumatic. No conjunctival congestion or icterus. Patient has moist mucous membranes. NECK: Supple. Trachea midline. CHEST/LUNGS: Crackles auscultated bilaterally, on BiPAP. No wheezes, rhonchi. HEART/CARDIOVASCULAR: Regular in rate and rhythm. S1 and S2 positive. ABDOMEN: Abdomen is soft, nontender. Patient has normal bowel sounds. SKIN: There is no rash. Warm and dry. NEURO: No focal motor deficit. Follows command. MUSCULOSKELETAL: No joint effusion or tenderness. EXTRIMITY: No edema, no cyanosis or clubbing. PSYCH: Cooperative. - Constitutional Vitals: Vital Signs - 12hr 04/13/17 04/13/17 04/13/17 14:38 14:50 14:53 Temperature Pulse Rate 96 H 96 H Pulse Rate [ 94 H Bilateral Throughout] Respiratory 37 H Rate Respiratory 37 H Rate [Bilateral Throughout] Blood Pressure 182/110 O2 Sat by Pulse 94 Oximetry 04/13/17 04/13/17 04/13/17 15:12 16:00 17:00 Temperature 98.5 F Pulse Rate 96 H 80 Pulse Rate [ 96 H Bilateral Throughout] Respiratory 20 26 H Rate Respiratory 35 H Rate [Bilateral Throughout] Blood Pressure 182/110 141/82 O2 Sat by Pulse Oximetry 04/13/17 04/13/17 04/13/17 17:17 20:23 20:50 Temperature Pulse Rate 73 Pulse Rate [ 73 84 Bilateral Throughout] Respiratory 29 H Rate Respiratory 29 H 30 H Rate [Bilateral Throughout] Blood Pressure O2 Sat by Pulse 93 93 Oximetry - Labs CBC & Chem 7: 04/12/17 10:57 04/13/17 12:09 Labs: Abnormal lab results 04/13/17 04/13/17 04/13/17 Range/Units 12:09 12:09 19:31 Carbon Dioxide 20 L (22-30) mmol/L BUN 92 H (9-20) mg/dL Creatinine 16.3 H (0.8-1.5) mg/dL Glucose 109 H (75-100) mg/dL Calcium 7.6 L (8.4-10.2) mg/dL Phosphorus 6.60 H (2.5-4.5) mg/dL Alkaline Phosphatase 34 L (35-129) units/L Troponin T 0.118 H* 0.119 H* (0.00-0.029) ng/mL Total Protein 5.1 L (6.3-8.2) g/dL Albumin 3.1 L (3.9-5) g/dL - Imaging and cardiology Chest x-ray: report reviewed (cardiomegaly with pulmonary edema)
[2017-04-14] MEDS: DUONEB *Not for PRN Use IH SCH ×4 (01:44→20:04)
[2017-04-14] MEDS: DIANEAL LOW CALCIUM W/2.5% DEXTROSE IP SCH ×3 (03:15→12:44)
[2017-04-14] MEDS: HEPARIN SUB-Q SCH (05:43)
[2017-04-14] MEDS: PULMICORT IH SCH ×2 (07:42→19:46)
[2017-04-14] MEDS: BROVANA NEBU IH SCH ×2 (07:43→19:46)
--- NOTE | 2017-04-14 09:21 | Progress Note ---
Assessment and Plan Acute respiratory failure on bipap therapy Hypertensive urgency Volume overload ESRD on peritoneal dialysis Paroxysmal Afib currently in sinus rhythm on eliquis for anticoagulation EF 65% on echo 10/2016 Elevated troponin, nonspecific likely secondary to renal disease. Fluid management through dialysis. Continue medical management for his paroxysmal afib. Subjective Date of service: 04/14/17 Principal diagnosis: ESRD Interval history: Patient is resting in bed an appears comfortable. Reports his breathing is better. Objective Vital Signs Temp Pulse Pulse Resp Resp BP Pulse Ox 04/14/17 08:00 98 F 86 20 166/90 96 04/14/17 07:59 99 04/14/17 07:58 79 18 04/14/17 07:43 77 22 04/14/17 01:55 83 18 04/14/17 01:47 85 31 H 04/14/17 01:46 85 31 H 95 04/14/17 00:00 98.0 F 88 22 158/88 95 04/13/17 20:50 84 30 H 04/13/17 20:23 73 29 H 93 04/13/17 17:17 73 29 H 93 04/13/17 17:00 80 26 H 141/82 04/13/17 16:00 98.5 F 96 H 20 182/110 04/13/17 15:12 96 H 35 H 04/13/17 14:53 94 H 37 H 04/13/17 14:50 96 H 37 H 94 04/13/17 14:38 96 H 182/110 04/13/17 09:47 98 H 42 H 98 04/13/17 09:43 100 H 41 H 04/13/17 09:20 101 H 37 H - Physical Examination General: No Apparent Distress Neck: Positive: trachea midline Cardiac: Positive: Reg Rate and Rhythm - Labs and Meds Cardiac Enzymes 04/13/17 Range/Units 12:09 AST 16 (5-40) units/L Comprehensive Metabolic Panel 04/13/17 Range/Units 12:09 Sodium 141 (137-145) mmol/L Potassium 4.2 (3.6-5.0) mmol/L Chloride 100.2 (98-107) mmol/L Carbon Dioxide 20 L (22-30) mmol/L BUN 92 H (9-20) mg/dL Creatinine 16.3 H (0.8-1.5) mg/dL Glucose 109 H (75-100) mg/dL Calcium 7.6 L (8.4-10.2) mg/dL AST 16 (5-40) units/L ALT 11 (7-56) units/L Alkaline Phosphatase 34 L (35-129) units/L Total Protein 5.1 L (6.3-8.2) g/dL Albumin 3.1 L (3.9-5) g/dL
[2017-04-14 09:53] LABS: Hematocrit 26.7 % (35.5-45.6); Hemoglobin 8.8 gm/dl (11.8-15.2); Mean Corpuscular HGB Conc 33 % (32-34); Mean Corpuscular Hemoglobin 30 pg (28-32); Mean Corpuscular Volume 90 fl (84-94); Platelet Count 266 K/mm3 (140-440); Red Blood Count 2.99 M/mm3 (3.65-5.03); Red Cell Distribution Width 15.5 % (13.2-15.2); White Blood Count 5.9 K/mm3 (4.5-11.0)
[2017-04-14] MEDS ORDERED: LOPRESSOR PO SCH (10:00)
[2017-04-14] MEDS ORDERED: ELIQUIS PO SCH (10:00)
[2017-04-14] MEDS ORDERED: LASIX PO SCH (10:00)
[2017-04-14] MEDS ORDERED: PROCARDIA XL PO SCH (10:00)
[2017-04-14 10:06] LABS: BUN/Creatinine Ratio 6.15; Calcium 7.6 mg/dL (8.4-10.2); Chloride 97.8 mmol/L (98-107); Potassium 4.2 mmol/L (3.6-5.0)
[2017-04-14] MEDS ORDERED: PROTONIX PO SCH (11:00)
[2017-04-14] MEDS: COREG PO SCH (11:05)
--- NOTE | 2017-04-14 11:39 | Progress Note ---
Assessment and Plan - Patient Problems (1) SOB (shortness of breath) Current Visit: Yes Status: Acute Plan to address problem: Secondary to Pulmonary Edema On Peritoneal dialysis (2) ESRD on peritoneal dialysis Current Visit: No Status: Chronic Plan to address problem: Peritoneal Dialysis- dwell volume 2000 ml, 2.5% dextrose solution, exchanges every 4 hours States he now has all his home PD supplies, truck delivered supplies yesterday to his home Fluid restriction of 1 liter per day Renally dose medications Obtain daily weights Renal diet Monitor I/O's (3) Accelerated hypertension Current Visit: No Status: Acute Plan to address problem: Continue on anti-hypertensive agents (4) Anemia in ESRD (end-stage renal disease) Current Visit: Yes Status: Acute Plan to address problem: Epogen 20,000 units SQ weekly Subjective Date of service: 04/14/17 Principal diagnosis: ESRD Interval history: Patient states he is feeling better. Objective - Vital Signs Vital signs: Vital Signs - 12hr 04/14/17 04/14/17 04/14/17 00:00 01:46 01:47 Temperature 98.0 F Pulse Rate 88 85 Pulse Rate [ 85 Bilateral Throughout] Respiratory 22 31 H Rate Respiratory 31 H Rate [Bilateral Throughout] Blood Pressure 158/88 O2 Sat by Pulse 95 95 Oximetry 04/14/17 04/14/17 04/14/17 01:55 07:43 07:58 Temperature Pulse Rate Pulse Rate [ 83 77 79 Bilateral Throughout] Respiratory Rate Respiratory 18 22 18 Rate [Bilateral Throughout] Blood Pressure O2 Sat by Pulse Oximetry 04/14/17 04/14/17 07:59 08:00 Temperature 98 F Pulse Rate 86 Pulse Rate [ Bilateral Throughout] Respiratory 20 Rate Respiratory Rate [Bilateral Throughout] Blood Pressure 166/90 O2 Sat by Pulse 99 96 Oximetry - General Appearance General appearance: well-developed, appears stated age EENT: ATNC, PERRL, hearing intact, vision intact Neck: no JVD, supple Respiratory: Present: Decreased Breath Sounds Cardiology: normal heart rate, S1S2 Gastrointestinal: normoactive bowel sounds Integumentary: warm and dry Neurologic: alert and oriented x3 Musculoskeletal: other (Left AVF has positive bruit and thrill) Psychiatric: mood/affect appropriate - Lab 04/14/17 09:36 04/14/17 09:36 Most recent lab results Calcium 7.6 mg/dL (8.4-10.2) L 04/14/17 09:36 Phosphorus 6.60 mg/dL (2.5-4.5) H 04/13/17 12:09
[2017-04-14] MEDS ORDERED: PROCRIT SUB-Q SCH (12:00)
[2017-04-14] MEDS ORDERED: APRESOLINE PO SCH ×2 (14:00→19:11)
--- NOTE | 2017-04-14 16:01 | Discharge Summary ---
Providers - Providers Date of Admission: 04/12/17 12:42 Date of discharge: 04/14/17 Attending physician: JT MESSINA 04/13/17 13:38 Consult to Physician [CONS] Routine Consulting Provider: LEON ROE Reason For Exam: elevated troponin Notified:: FERNANDO SEGAL Primary care physician: [employer] Hospitalization Condition: Stable Hospital course: Acute hypoxic orespiratory failure Due to pulmonary edema from volume overload due to noncompliance with peritoneal dialysis Continue BiPAP and along with Supplemental oxygen, nebs, aspiration precautions , Status post urgent dialysis, nephrology consulted in ED, Wean off BiPAP as tolerated ESRD (end stage renal disease) On PD at this time, Pt refusing HD. Nephrology following, fluid restriction, renal diet Anemia in ESRD (end-stage renal disease) Stable, No transfusion at this time, epogen as per renal team. Malignant Hypertension monitor bp q shift, Goal BP is 150-160 systolic overnight. hydralazine prn, adjust BP medications as needed Chronic Atrial fibrillation resume therapeutic anticoagulation, telemetry, supportive care. Elevated troponin Likely due to malignant hypertension and underlying volume overload from end stage renal disease We'll continue to trend troponin We'll continue aspirin and beta marj and statin We'll consult cardiology for any further recommendation Morbid obesity Consult dietary about nutrition recommendation Brief history: This is a 31yr old male with end-stage renal disease on peritoneal dialysis, Hypertension, morbid obesity, and paroxysmal atrial fibrillation for which he is on Eliquis, most recent echocardiogram revealed normal left ventricular systolic function, ejection fraction 65-70% (on 10/2016 ) presented to the ED with complaints of worsening shortness of breath, admitted with volume overload secondary to noncompliance with PD. He also noted to have a blood pressure of 213/ 137 on admission. His x-ray on admission was significant for cardiomegaly and pulmonary edema He is currently on bipap therapy. Disposition: TO HOME OR SELFCARE Time spent for discharge: 32 minutes Core Measure Documentation - Palliative Care Palliative Care/ Comfort Measures: Not Applicable - Core Measures Any of the following diagnoses?: none Exam - Physical Exam Narrative exam: GENERAL: well-developed morbidly obese -[place] male lying on bed appeared to be in no discomfort. HEENT: Normocephalic. Atraumatic. No conjunctival congestion or icterus. Patient has moist mucous membranes. NECK: Supple. Trachea midline. CHEST/LUNGS: Crackles auscultated bilaterally, on BiPAP. No wheezes, rhonchi. HEART/CARDIOVASCULAR: Regular in rate and rhythm. S1 and S2 positive. ABDOMEN: Abdomen is soft, nontender. Patient has normal bowel sounds. SKIN: There is no rash. Warm and dry. NEURO: No focal motor deficit. Follows command. MUSCULOSKELETAL: No joint effusion or tenderness. EXTRIMITY: No edema, no cyanosis or clubbing. PSYCH: Cooperative. - Constitutional Vitals: Temp Pulse Resp BP Pulse Ox 98.4 F 89 20 172/106 96 04/14/17 12:00 04/14/17 14:38 04/14/17 14:38 04/14/17 12:00 04/14/17 08:00 Plan Activity: advance as tolerated Weight Bearing Status: Weight Bear as Tolerated Diet: renal Follow up with: PRIMARY CARE, [Primary Care Provider] - 3-5 Days Prescriptions: Carvedilol [Coreg] 25 mg PO Q12HR #60 tablet hydrALAZINE [Apresoline TAB] 50 mg PO Q8HR #90 tablet
[2017-04-14] MEDS: APRESOLINE IV PRN (16:55)
--- NOTE | 2017-04-14 19:23 | Progress Note ---
Assessment and Plan Acute hypoxic orespiratory failure Due to pulmonary edema from volume overload due to noncompliance with peritoneal dialysis Continue BiPAP and along with Supplemental oxygen, nebs, aspiration precautions , Status post urgent dialysis, nephrology consulted in ED, Wean off BiPAP as tolerated ESRD (end stage renal disease) On PD at this time, Pt refusing HD. Nephrology following, fluid restriction, renal diet Anemia in ESRD (end-stage renal disease) Stable, No transfusion at this time, epogen as per renal team. Malignant Hypertension monitor bp q shift, Goal BP is 150-160 systolic overnight. hydralazine prn, adjust BP medications as needed Chronic Atrial fibrillation resume therapeutic anticoagulation, telemetry, supportive care. Elevated troponin Likely due to malignant hypertension and underlying volume overload from end stage renal disease We'll continue to trend troponin We'll continue aspirin and beta marj and statin We'll consult cardiology for any further recommendation Morbid obesity Consult dietary about nutrition recommendation Brief history: This is a 31yr old male with end-stage renal disease on peritoneal dialysis, Hypertension, morbid obesity, and paroxysmal atrial fibrillation for which he is on Eliquis, most recent echocardiogram revealed normal left ventricular systolic function, ejection fraction 65-70% (on 10/2016 ) presented to the ED with complaints of worsening shortness of breath, admitted with volume overload secondary to noncompliance with PD. He also noted to have a blood pressure of 213/ 137 on admission. His x-ray on admission was significant for cardiomegaly and pulmonary edema He is currently on bipap therapy. Subjective Date of service: 04/14/17 Principal diagnosis: ESRD Objective - Constitutional Vitals: Vital Signs - 12hr 04/14/17 04/14/17 04/14/17 07:43 07:58 07:59 Temperature Pulse Rate Pulse Rate [ 77 79 Bilateral Throughout] Respiratory Rate Respiratory 22 18 Rate [Bilateral Throughout] Blood Pressure O2 Sat by Pulse 99 Oximetry 04/14/17 04/14/17 04/14/17 08:00 12:00 14:29 Temperature 98 F 98.4 F Pulse Rate 86 90 Pulse Rate [ 88 Bilateral Throughout] Respiratory 20 18 Rate Respiratory 20 Rate [Bilateral Throughout] Blood Pressure 166/90 172/106 O2 Sat by Pulse 96 Oximetry 04/14/17 04/14/17 04/14/17 14:38 16:01 16:54 Temperature 98.5 F 98.2 F Pulse Rate 92 H 88 Pulse Rate [ 89 Bilateral Throughout] Respiratory 18 18 Rate Respiratory 20 Rate [Bilateral Throughout] Blood Pressure 162/100 173/104 O2 Sat by Pulse Oximetry 04/14/17 04/14/17 16:55 18:11 Temperature 98.2 F Pulse Rate 98 H Pulse Rate [ Bilateral Throughout] Respiratory 18 Rate Respiratory Rate [Bilateral Throughout] Blood Pressure 173/104 170/92 O2 Sat by Pulse Oximetry - Labs CBC & Chem 7: 04/14/17 09:36 04/14/17 09:36 Labs: Abnormal lab results 04/13/17 04/14/17 04/14/17 Range/Units 19:31 00:21 05:32 RBC (3.65-5.03) M/mm3 Hgb (11.8-15.2) gm/dl Hct (35.5-45.6) % RDW (13.2-15.2) % Chloride (98-107) mmol/L Carbon Dioxide (22-30) mmol/L BUN (9-20) mg/dL Creatinine (0.8-1.5) mg/dL Glucose (75-100) mg/dL Calcium (8.4-10.2) mg/dL Troponin T 0.119 H* 0.116 H* 0.109 H* (0.00-0.029) ng/mL 04/14/17 04/14/17 Range/Units 09:36 09:36 RBC 2.99 L (3.65-5.03) M/mm3 Hgb 8.8 L (11.8-15.2) gm/dl Hct 26.7 L (35.5-45.6) % RDW 15.5 H (13.2-15.2) % Chloride 97.8 L (98-107) mmol/L Carbon Dioxide 21 L (22-30) mmol/L BUN 93 H (9-20) mg/dL Creatinine 15.1 H (0.8-1.5) mg/dL Glucose 114 H (75-100) mg/dL Calcium 7.6 L (8.4-10.2) mg/dL Troponin T (0.00-0.029) ng/mL
[2017-04-14 20:34] VITALS: BP 161/88
[2017-04-14] MEDS ORDERED: PAMELOR PO SCH (22:00)
[2017-04-14] MEDS ORDERED: ZESTRIL PO SCH (22:00)
== END 2017-04-14 20:00 | disposition home or self-care (01) | DRG 682 ==
LOC: ED 10:40 → 3A 12:42
PROVIDERS: ADMIT Internal Medicine; ATTEND Internal Medicine
PROC: 4A033R1 Measurement of Arterial Saturation, Peripheral, Percutaneous Approach (ICD-10-PCS; principal; 2017-04-12)
PROC: 5A09457 Assistance with Respiratory Ventilation, 24-96 Consecutive Hours, Continuous Positive Airway Pressure (ICD-10-PCS; 2017-04-12)
DX: I12.0 Hypertensive chronic kidney disease with stage 5 chronic kidney disease or end stage renal disease (principal); J96.01 Acute respiratory failure with hypoxia; N18.6 End stage renal disease; Z68.41 Body mass index [BMI] 40.0-44.9, adult; E87.70 Fluid overload, unspecified; I16.0 Hypertensive urgency; Z99.2 Dependence on renal dialysis; J45.909 Unspecified asthma, uncomplicated; E11.22 Type 2 diabetes mellitus with diabetic chronic kidney disease; E78.5 Hyperlipidemia, unspecified; D63.1 Anemia in chronic kidney disease; Z83.3 Family history of diabetes mellitus; Z82.49 Family history of ischemic heart disease and other diseases of the circulatory system; Z91.15 Patient's noncompliance with renal dialysis; E66.01 Morbid (severe) obesity due to excess calories; I48.0 Paroxysmal atrial fibrillation
CPT/HCPCS: 36415; 71010; 80048; 80053; 80061; 82803; 83880; 84100; 84484; 85025; 85027; 87040; 93005; 93010; 94640; 94660; 94760; 96374; 96376; A9270-GY; J0360; J1644

== ENCOUNTER 2017-11-09 08:37 | Inpatient (IN) | payer MEDICARE, OTHER ==
--- NOTE | 2017-11-09 09:45 | XRay Report ---
CHEST XRAY, 2 VIEWS: History: Shortness of breath. Findings: There is mild cardiomegaly. Pulmonary vessels are within normal limits. The lungs are clear and fully expanded. No infiltrate, pleural effusion or pneumothorax. Normal thoracic cage. IMPRESSION: Cardiomegaly.
[2017-11-09 10:08] LABS: Basophils # (Auto) 0.1 K/mm3 (0.0-0.1); Basophils % (Auto) 1.3 % (0.0-1.8); Eosinophils # (Auto) 0.4 K/mm3 (0.0-0.4); Eosinophils % (Auto) 6.2 % (0.0-4.3); Hematocrit 24.3 % (35.5-45.6); Hemoglobin 7.7 gm/dl (11.8-15.2); Lymphocytes % (Auto) 16.5 % (13.4-35.0); Mean Corpuscular HGB Conc 32 % (32-34); Mean Corpuscular Hemoglobin 27 pg (28-32); Mean Corpuscular Volume 85 fl (84-94); Monocytes # (Auto) 0.7 K/mm3 (0.0-0.8); Monocytes % (Auto) 11.6 % (0.0-7.3); Platelet Count 314 K/mm3 (140-440); Red Blood Count 2.87 M/mm3 (3.65-5.03); Red Cell Distribution Width 16.1 % (13.2-15.2)
[2017-11-09 10:18] LABS: Albumin 3.1 g/dL (3.9-5); Calcium 6.1 mg/dL (8.4-10.2)
[2017-11-09 10:37] LABS: Chol/HDL Ratio 4.2 %
[2017-11-09] MEDS ORDERED: CATAPRES PO ONE (10:51)
--- NOTE | 2017-11-09 11:22 | Emergency Department Report ---
ED N/V/D HPI - General Chief complaint: Abdominal Pain Stated complaint: ABDOMINAL PAIN/HTN Time Seen by Provider: 11/09/17 10:26 Source: patient, old records reviewed Mode of arrival: Ambulatory Limitations: No Limitations - History of Present Illness Initial comments: 32-year-old male with a history of morbid obesity, end-stage renal disease on peritoneal dialysis, and hypertension presents to Hospital complains of persistent nausea, vomiting, and weight gain for the last 3-4 weeks. Patient states he is vomiting after food intake. Typically occurs several minutes after eating. It also occurs after moving around a lot. Vomiting worse in the morning as well. Patient hasn't taken his blood pressure medication in 2 weeks due to symptoms but is intermittently tolerating some food intake. Some loose stools reported with the bloated feeling. Patient complains of intermittent suprapubic sharp pain but no pain currently. Patient states that he's had a 25 pound weight gain in the last 3 weeks. He states he is compliant with his peritoneal dialysis, fluid is clear, no fever, and states that symptoms do not feel like his previous peritonitis symptoms. He denies headache, chest pain, shortness of breath, melena, current nausea, or hematochezia. History of paroxysmal atrial fibrillation but patient states is Eliquis was discontinued by his doctors. His adobe block maker is Dr. cramer No PMD. - Related Data Previous Rx's Medication Instructions Recorded Last Taken Type Nortriptyline [Pamelor] 25 mg PO QHS #30 capsule 01/16/17 06/24/17 Rx Apixaban [Eliquis] 5 mg PO BID #60 tablet 03/09/17 06/24/17 Rx Furosemide [Lasix TAB] 40 mg PO QDAY #30 tablet 03/09/17 06/24/17 Rx Lisinopril [Zestril TAB] 20 mg PO HS #30 tablet 03/09/17 06/24/17 Rx Labetalol [Normodyne TAB] 300 mg PO TID #90 tablet 07/01/17 Unknown Rx Pantoprazole [Protonix TAB] 40 mg PO BID #60 tablet 07/01/17 Unknown Rx amLODIPine [Norvasc] 10 mg PO QDAY #30 tablet 07/01/17 Unknown Rx hydrALAZINE [Apresoline TAB] 50 mg PO Q8HR #90 tablet 07/01/17 Unknown Rx Allergies Allergy/AdvReac Type Severity Reaction Status Date / Time No Known Allergies Allergy Verified 08/12/13 02:52 ED Review of Systems ROS: Stated complaint: ABDOMINAL PAIN/HTN Other details as noted in HPI Comment: All other systems reviewed and negative ED Past Medical Hx - Past Medical History Previous Medical History?: Yes Hx Hypertension: Yes Hx Congestive Heart Failure: No Hx Diabetes: Yes Hx Renal Disease: Yes (CKD STAGE 4, peritoneal dialysis) Hx Arthritis: Yes Hx Asthma: Yes Hx COPD: No Hx HIV: No Additional medical history: optic neuritis, AFIB - Surgical History Past Surgical History?: Yes Additional Surgical History: Recently diagnosed with optic neuritis, peritoneal dialysis - Social History Smoking Status: Never Smoker Substance Use Type: Prescribed - Medications Home Medications: Home Medications Medication Instructions Recorded Confirmed Last Taken Type Nortriptyline [Pamelor] 25 mg PO QHS #30 capsule 01/16/17 06/26/17 06/24/17 Rx Apixaban [Eliquis] 5 mg PO BID #60 tablet 03/09/17 06/26/17 06/24/17 Rx Furosemide [Lasix TAB] 40 mg PO QDAY #30 tablet 03/09/17 06/26/17 06/24/17 Rx Lisinopril [Zestril TAB] 20 mg PO HS #30 tablet 03/09/17 06/26/17 06/24/17 Rx Labetalol [Normodyne TAB] 300 mg PO TID #90 tablet 07/01/17 Unknown Rx Pantoprazole [Protonix TAB] 40 mg PO BID #60 tablet 07/01/17 Unknown Rx amLODIPine [Norvasc] 10 mg PO QDAY #30 tablet 07/01/17 Unknown Rx hydrALAZINE [Apresoline TAB] 50 mg PO Q8HR #90 tablet 07/01/17 Unknown Rx ED Physical Exam - General Limitations: No Limitations - Other Other exam information: General: No limitations, patient is alert in no acute distress Head exam: Atraumatic, normocephalic Eyes exam: Normal appearance, nonicteric sclera ENT: Moist mucous membrane, normal oropharynx Neck exam: Normal inspection, full range of motion, no meningismus nontender Respiratory exam: Clear to auscultation bilateral, no wheezes, rales, crackles Cardiovascular: Normal rate and rhythm, normal heart sounds Abdomen: Soft, nondistended, obese, and nontender, with normal bowel sounds, no rebound, or guarding. Left lower quadrant peritoneal dialysis catheter noted Rectal: Guaiac-negative brown stool, no melena Extremity: Full range of motion Back: Normal Inspection, full range of motion, no tenderness Neurologic: Alert, oriented x3, cranial nerves intact, no motor or sensory deficit Psychiatric: normal affect, normal mood Skin: Warm, dry, intact ED Course Vital Signs 11/09/17 11/09/17 11/09/17 09:05 10:19 10:30 Temperature 98.1 F Pulse Rate 105 H Respiratory 24 Rate Blood Pressure 253/161 206/128 O2 Sat by Pulse 95 100 100 Oximetry 11/09/17 10:46 Temperature Pulse Rate Respiratory Rate Blood Pressure 206/128 O2 Sat by Pulse 99 Oximetry - Consultations Consultation #1: 11/09/17 11:12 Case d/w Dr Diego sanchez. He is familiar with the patient. He will consult ED Medical Decision Making - Lab Data Result diagrams: 11/09/17 09:44 11/09/17 09:44 Lab Results 11/09/17 11/09/17 11/09/17 Range/Units 09:44 09:44 09:44 WBC 6.1 (4.5-11.0) K/mm3 RBC 2.87 L (3.65-5.03) M/mm3 Hgb 7.7 L (11.8-15.2) gm/dl Hct 24.3 L (35.5-45.6) % MCV 85 (84-94) fl MCH 27 L (28-32) pg MCHC 32 (32-34) % RDW 16.1 H (13.2-15.2) % Plt Count 314 (140-440) K/mm3 Lymph % (Auto) 16.5 (13.4-35.0) % [place] % (Auto) 11.6 H (0.0-7.3) % Eos % (Auto) 6.2 H (0.0-4.3) % Baso % (Auto) 1.3 (0.0-1.8) % Lymph # 1.0 L (1.2-5.4) K/mm3 [place] # 0.7 (0.0-0.8) K/mm3 Eos # 0.4 (0.0-0.4) K/mm3 Baso # 0.1 (0.0-0.1) K/mm3 Seg Neutrophils % 64.4 (40.0-70.0) % Seg Neutrophils # 3.9 (1.8-7.7) K/mm3 Sodium 141 (137-145) mmol/L Potassium 4.2 (3.6-5.0) mmol/L Chloride 97.6 L (98-107) mmol/L Carbon Dioxide 24 (22-30) mmol/L Anion Gap 24 mmol/L BUN 102 H (9-20) mg/dL Creatinine 19.3 H (0.8-1.5) mg/dL Estimated GFR 3 ml/min BUN/Creatinine Ratio 5 % Glucose 97 (75-100) mg/dL Calcium 6.1 L (8.4-10.2) mg/dL Total Bilirubin 0.30 (0.1-1.2) mg/dL AST 19 (5-40) units/L ALT 30 (7-56) units/L Alkaline Phosphatase 38 (35-129) units/L Troponin T 0.403 H* (0.00-0.029) ng/mL NT-Pro-B Natriuret Pep > 36141 H (0-450) pg/mL Total Protein 5.1 L (6.3-8.2) g/dL Albumin 3.1 L (3.9-5) g/dL Albumin/Globulin Ratio 1.6 % Triglycerides 98 (2-149) mg/dL Cholesterol 147 (50-199) mg/dL LDL Cholesterol Direct 107 (50-130) mg/dL HDL Cholesterol 35 L (40-59) mg/dL Cholesterol/HDL Ratio 4.20 % - EKG Data -: EKG Interpreted by In EKG shows normal: sinus rhythm, axis (-12), QRS complexes (101), ST-T waves (no stemi/t inv) Rate: normal (92) - EKG Data When compared to previous EKG there are: no significant change (06/2017) - Radiology Data Radiology results: report reviewed Read by radiologist Chest x-ray: Cardiomegaly - Medical Decision Making Uncontrolled hypertension Likely secondary to medication medication noncompliance Question peritoneal dialysis compliance given hi BUN and creatinine level Elevated troponin likely secondary to chronic kidney disease and similar to previous No chest pain or flail or acute EKG abnormalities Clonidine 0.2 mg ordered Nausea and vomiting Could related to uremia Abdomen is nontender and soft No leukocytosis or fever Anemia no active bleeding (guaic neg) likely due to chronic kidney disease - Differential Diagnosis hypertensive emergency, gastritis, pancreatitis, uremia, noncompliant Critical Care Time: No Critical care attestation.: If time is entered above; I have spent that time in minutes in the direct care of this critically ill patient, excluding procedure time. ED Disposition Clinical Impression: Morbid obesity with BMI of 40.0-44.9, adult, ESRD on peritoneal dialysis, Anemia in ESRD (end-stage renal disease), Diabetes mellitus type 2 in obese, Nausea and vomiting in adult, Uremia, Uncontrolled hypertension, Nonadherence to medication Disposition: OP ADMIT IP TO THIS HOSP Is pt being admited?: Yes Condition: Stable Time of Disposition: 11:24 (Dr Bull/hosp)
--- NOTE | 2017-11-09 12:58 | History and Physical Report ---
History of Present Illness Chief complaint: I cant keep anything down History of present illness: 32 YO Male with ESRD on PD, MO,HTN, DM, OA, Asthma, A Fib, Optic Neuritis presents to ED for evaluation. Pt states that he has experienced multiple episodes of nausea, vomiting, and weight gain for the last 3 weeks with worsening symptoms over the past 4 days. Patient states he is vomiting after food intake an is unable to tolerate oral intake. Patient acknowledges a 25 pound weight gain in the last 3 weeks but he also states that he is compliant with his peritoneal dialysis. Pt denies fever, chills, palpitations, headache, chest pain, shortness of breath, melena, NVD, or hematochezia. Pt seen and evaluated in ED and found to has ARF/ESRD needing dialysis. Nephrology team consulted in ED. Pt admitted to medical floor. Past History Past Medical History: atrial fib, arthritis, diabetes, hypertension Past Surgical History: Other (PD catheter) Social history: single. denies: smoking, alcohol abuse, prescription drug abuse Family history: diabetes, hypertension Medications and Allergies Allergies Allergy/AdvReac Type Severity Reaction Status Date / Time No Known Allergies Allergy Verified 08/12/13 02:52 Home Medications Medication Instructions Recorded Confirmed Last Taken Type Nortriptyline [Pamelor] 25 mg PO QHS #30 capsule 01/16/17 11/09/17 2 Weeks Ago Rx ~10/26/17 Furosemide [Lasix TAB] 40 mg PO QDAY #30 tablet 03/09/17 11/09/17 2 Weeks Ago Rx ~10/26/17 Lisinopril [Zestril TAB] 20 mg PO HS #30 tablet 03/09/17 11/09/17 2 Weeks Ago Rx ~10/26/17 Labetalol [Normodyne TAB] 300 mg PO TID #90 tablet 07/01/17 11/09/17 2 Weeks Ago Rx ~10/26/17 Pantoprazole [Protonix TAB] 40 mg PO BID #60 tablet 07/01/17 11/09/17 2 Weeks Ago Rx ~10/26/17 amLODIPine [Norvasc] 10 mg PO QDAY #30 tablet 07/01/17 11/09/17 2 Weeks Ago Rx ~10/26/17 hydrALAZINE [Apresoline TAB] 50 mg PO Q8HR #90 tablet 07/01/17 11/09/17 2 Weeks Ago Rx ~10/26/17 Review of Systems Constitutional: weight gain, no weight loss, no fever, no chills, no sweats Ears, nose, mouth and throat: no ear pain, no ear discharge, no tinnitis, no decreased hearing, no nose pain, no nasal congestion, no nasal discharge Cardiovascular: no chest pain, no orthopnea, no palpitations, no rapid/ irregular heart beat, no edema, no syncope Respiratory: no cough, no cough with sputum, no excessive sputum, no hemoptysis , no shortness of breath Gastrointestinal: nausea, vomiting, no abdominal pain, no diarrhea Genitourinary Male: no hematuria, no flank pain, no discharge, no urinary frequency, no urinary hesitancy, no nocturia Rectal: no pain, no incontinence, no bleeding Musculoskeletal: no neck stiffness, no neck pain, no shooting arm pain, no arm numbness/tingling, no low back pain, no shooting leg pain Integumentary: no rash, no pruritis, no redness, no sores, no wounds, no jaundice Neurological: no transient paralysis, no paralysis, no weakness, no parathesias , no numbness, no tingling, no tremors, no ataxia Psychiatric: no anxiety, no memory loss, no change in sleep habits, no sleep disturbances, no insomnia, no change in appetite, no change in libido, no suicidal ideation Endocrine: no cold intolerance, no heat intolerance, no polyphagia, no excessive thirst, no polydipsia, no polyuria, no nocturia Hematologic/Lymphatic: no easy bruising, no easy bleeding, no lymphedema Allergic/Immunologic: no urticaria, no allergic rhinitis, no wheezing, no persistent infections, no anaphylaxis, no angioedema Exam - Constitutional Vitals: Temp Pulse Resp BP Pulse Ox 98.1 F 105 H 24 206/128 99 11/09/17 09:05 11/09/17 09:05 11/09/17 09:05 11/09/17 10:46 11/09/17 10:46 General appearance: Present: mild distress - EENT Eyes: Present: PERRL ENT: hearing intact, clear oral mucosa - Neck Neck: Present: supple, normal ROM - Respiratory Respiratory effort: normal Respiratory: bilateral: CTA - Cardiovascular Rhythm: irregularly irregular Heart Sounds: Present: S1 & S2. Absent: rub, click - Extremities Extremities: pulses symmetrical, No edema Extremity abnormal: edema Peripheral Pulses: within normal limits - Abdominal General gastrointestinal: Present: soft, non-tender, non-distended, normal bowel sounds Male genitourinary: Present: normal - Integumentary Integumentary: Present: clear, warm, dry - Musculoskeletal Musculoskeletal: gait normal, strength equal bilaterally - Psychiatric Psychiatric: appropriate mood/affect, intact judgment & insight - Neurologic Neurologic: CNII-XII intact, moves all extremities Results - Labs CBC & Chem 7: 11/09/17 09:44 11/09/17 09:44 Labs: Abnormal lab results 11/09/17 11/09/17 11/09/17 Range/Units 09:44 09:44 09:44 RBC 2.87 L (3.65-5.03) M/mm3 Hgb 7.7 L (11.8-15.2) gm/dl Hct 24.3 L (35.5-45.6) % MCH 27 L (28-32) pg RDW 16.1 H (13.2-15.2) % [place] % (Auto) 11.6 H (0.0-7.3) % Eos % (Auto) 6.2 H (0.0-4.3) % Lymph # 1.0 L (1.2-5.4) K/mm3 Chloride 97.6 L (98-107) mmol/L BUN 102 H (9-20) mg/dL Creatinine 19.3 H (0.8-1.5) mg/dL Calcium 6.1 L (8.4-10.2) mg/dL Troponin T 0.403 H* (0.00-0.029) ng/mL NT-Pro-B Natriuret Pep > 87080 H (0-450) pg/mL Total Protein 5.1 L (6.3-8.2) g/dL Albumin 3.1 L (3.9-5) g/dL HDL Cholesterol 35 L (40-59) mg/dL Assessment and Plan - Patient Problems (1) Diastolic CHF Current Visit: Yes Status: Acute Qualifiers: Heart failure chronicity: acute on chronic Qualified Code(s): I50.33 - Acute on chronic diastolic (congestive) heart failure Plan to address problem: Afterload reduction, diuresis, monitor uop q shift, supplemental oxygen, Strict I/O, Daily weight, monitor BP q shift. (2) Morbid obesity Current Visit: Yes Status: Acute Plan to address problem: Balanced diet, increased physical activity at discharge (3) Hypertensive urgency Current Visit: Yes Status: Acute Plan to address problem: monitor bp q shift, resume prehospital medication, IV hydralazine prn (4) Atrial fibrillation Current Visit: Yes Status: Acute Qualifiers: Atrial fibrillation type: chronic Qualified Code(s): I48.2 - Chronic atrial fibrillation Plan to address problem: Persistent: therapeutic anticoagulation, INR, heart rate control, with rate less than 100bpm, (5) ESRD on peritoneal dialysis Current Visit: Yes Status: Acute Plan to address problem: Nephrology consulted in ED, dialysis as per renal team. (6) DVT prophylaxis Current Visit: Yes Status: Acute
[2017-11-09] MEDS ORDERED: ZOFRAN IV PRN (13:00)
[2017-11-09] MEDS ORDERED: PROVENTIL IH PRN (13:00)
[2017-11-09] MEDS ORDERED: TYLENOL PO PRN (13:00)
--- NOTE | 2017-11-09 15:26 | Consultation ---
History of Present Illness - Reason for Consult Consult date: 11/09/17 end stage renal disease - History of Present Illness This is a 32 year old male who presents to the hospital with a chief complaint of nausea, vomiting and shortness of breath and weight gain present for 3 weeks. Patient has a past medical history of Hypertension, Diabetes Mellitus, Afib, Asthma and ESRD on Peritoneal Dialysis. Patient admits to missing 2 days of Peritoneal dialysis with last exchange done on Monday. Patient has been non-compliant with Peritoneal Dialysis and has a left AVF in anticipation for switching to hemodialysis from last year, however patient wanted to stay on PD. I have had a long discussion with patient regarding the need for switching to hemodialysis as he is not getting adequate clearances due to being non-complaint in performing his PD exchanges at home which could lead to Uremia, volume overload and . Patient is currently agreeable to start hemodialysis today atleast on a possibly temporary basis. We are being consulted for management of this patient's ESRD. Past History Past Medical History: atrial fib, arthritis, diabetes, hypertension Past Surgical History: Other (Left AVF placement. PD catheter palcement.) Social history: no significant social history Family history: no significant family history Medications and Allergies Allergies Allergy/AdvReac Type Severity Reaction Status Date / Time No Known Allergies Allergy Verified 08/12/13 02:52 Home Medications Medication Instructions Recorded Confirmed Last Taken Type Nortriptyline [Pamelor] 25 mg PO QHS #30 capsule 01/16/17 11/09/17 2 Weeks Ago Rx ~10/26/17 Furosemide [Lasix TAB] 40 mg PO QDAY #30 tablet 03/09/17 11/09/17 2 Weeks Ago Rx ~10/26/17 Lisinopril [Zestril TAB] 20 mg PO HS #30 tablet 03/09/17 11/09/17 2 Weeks Ago Rx ~10/26/17 Labetalol [Normodyne TAB] 300 mg PO TID #90 tablet 07/01/17 11/09/17 2 Weeks Ago Rx ~10/26/17 Pantoprazole [Protonix TAB] 40 mg PO BID #60 tablet 07/01/17 11/09/17 2 Weeks Ago Rx ~10/26/17 amLODIPine [Norvasc] 10 mg PO QDAY #30 tablet 07/01/17 11/09/17 2 Weeks Ago Rx ~10/26/17 hydrALAZINE [Apresoline TAB] 50 mg PO Q8HR #90 tablet 07/01/17 11/09/17 2 Weeks Ago Rx ~10/26/17 Active Meds: Active Medications Acetaminophen (Tylenol) 650 mg PO Q4H PRN PRN Reason: Pain MILD(1-3)/Fever >100.5/VELARDE Albuterol (Proventil) 2.5 mg IH Q4HRT PRN PRN Reason: Shortness Of Breath Amlodipine Besylate (Norvasc) 10 mg PO QDAY EZRA Furosemide (Lasix) 40 mg IV BID@0600,1800 EZRA Hydralazine HCl (Apresoline) 50 mg PO Q8HR EZRA Labetalol HCl (Normodyne) 300 mg PO TID EZRA Lisinopril (Zestril) 20 mg PO HS EZRA Nortriptyline HCl (Pamelor) 25 mg PO QHS EZRA Ondansetron HCl (Zofran) 4 mg IV Q8H PRN PRN Reason: Nausea And Vomiting Pantoprazole Sodium (Protonix) 40 mg PO BID EZRA Sodium Chloride (Sodium Chloride Flush Syringe 10 Ml) 10 ml IV BID EZRA Sodium Chloride (Sodium Chloride Flush Syringe 10 Ml) 10 ml IV PRN PRN PRN Reason: LINE FLUSH Review of Systems Constitutional: weight gain, fatigue, no weight loss, no fever, no chills, no sweats, no anorexia Ears, nose, mouth and throat: no ear pain, no ear discharge, no tinnitis, no decreased hearing, no nose pain, no nasal congestion, no nasal discharge, no sinus pressure Cardiovascular: edema, shortness of breath, high blood pressure, leg edema, no chest pain, no orthopnea, no palpitations, no rapid/irregular heart beat, no syncope, no lightheadedness Respiratory: shortness of breath, no cough with sputum, no excessive sputum, no hemoptysis Gastrointestinal: nausea, vomiting, no diarrhea, no constipation, no change in bowel habits, no hematemesis Genitourinary Male: no dysuria, no flank pain, no urinary frequency, no urinary hesitancy Musculoskeletal: no neck stiffness, no neck pain, no shooting arm pain, no arm numbness/tingling, no low back pain, no shooting leg pain Integumentary: no rash, no pruritis, no redness, no sores, no wounds Neurological: no transient paralysis, no paralysis, no weakness, no parathesias , no numbness, no tingling, no seizures, no syncope, no tremors Psychiatric: no memory loss, no change in sleep habits, no sleep disturbances, no insomnia, no hypersomnia, no change in appetite, no change in libido Endocrine: no cold intolerance, no heat intolerance, no polyphagia, no excessive thirst, no polydipsia, no polyuria Hematologic/Lymphatic: no easy bruising, no easy bleeding, no lymphadenopathy Exam - Vital Signs Vital signs: Vital Signs Temp Pulse Resp BP Pulse Ox 98.1 F 105 H 24 253/161 95 11/09/17 09:05 11/09/17 09:05 11/09/17 09:05 11/09/17 09:05 11/09/17 09:05 - General Appearance General appearance: well-developed, appears stated age EENT: ATNC, PERRL, hearing intact, vision intact Neck: Present: neck supple, trachea midline Respiratory: Decreased Breath Sounds Heart: regular, S1S2 Gastrointestinal: Present: normoactive bowel sounds, other (PD catheter intact) Integumentary: warm and dry Neurologic: alert and oriented x3 Musculoskeletal: Present: joint swelling, other (Left AVF has positive bruit and thrill) Results - Lab Results 11/09/17 09:44 11/09/17 09:44 Most recent lab results Calcium 6.1 mg/dL (8.4-10.2) L 11/09/17 09:44 Assessment and Plan End Stage Renal Disease, Non-complaint with Peritoneal Dialysis, switching modalities to Hemodialysis: Patient is chronically non-complaint with his PD exchanges, last PD exchange was on Monday (did not drain) Patient agreeable to switch dialysis modalities to hemodialysis for now Patient has a Left AVF with positive bruit and thrill Will initiate hemodialysis today using his Left AVF and he will likely need another treatment tomorrow as well Abdomen to be drained today-Will send PD fluid down for culture, gram stain and cell count Fluid restriction of 1 liter per day Renally dose medications Obtain daily weights Monitor I/O's Renal diet Obtain cmp, cbc, phosphorus and PTH level in a.m Assess dialysis needs daily Hypertension: Patient is non-compliant with his home blood pressure medications, has not taken any in 2 weeks Resume home blood pressure medications Start hemodialysis today Anemia: Start Epogen 20,000 units with HD Nausea/Vomiting: Possibly related to Uremia Starting on hemodialysis today and tomorrow On Protonix and Zofran Monitor Obesity: Encouraged weight loss
[2017-11-09] MEDS: APRESOLINE PO SCH ×3 (15:32→23:15)
[2017-11-09] MEDS: NORMODYNE PO SCH ×2 (15:40→19:09)
[2017-11-09] MEDS ORDERED: NACL 0.9 (PRIMING MACHINE ONLY DIALYSIS) MC ONE (17:55)
[2017-11-09] MEDS ORDERED: NACL 0.9% 100 ML IV PRN (18:08)
[2017-11-09] MEDS: LASIX IV SCH (20:11)
[2017-11-09 20:26] LABS: Hepatitis A Antibody IgM Non-Reactive (NonReactive); Hepatitis B Core IgM Non-Reactive (NonReactive); Hepatitis B Surface Antigen Non-Reactive (Negative); Hepatitis C Virus Antibody Non-Reactive (NonReactive)
[2017-11-09] MEDS ORDERED: ZESTRIL PO SCH (22:00)
[2017-11-09] MEDS: PAMELOR PO SCH (23:14)
[2017-11-09] MEDS: PROTONIX PO SCH (23:15)
[2017-11-09] MEDS: SODIUM CHLORIDE FLUSH SYRINGE 10 ML IV SCH (23:17)
[2017-11-10 02:37] LABS: Total Cells Counted 100 /mm3
[2017-11-10] MEDS: APRESOLINE PO SCH ×2 (06:28→16:28)
[2017-11-10] MEDS: LASIX IV SCH ×2 (06:28→18:10)
[2017-11-10 07:21] LABS: Basophils # (Auto) 0.1 K/mm3 (0.0-0.1); Eosinophils # (Auto) 0.3 K/mm3 (0.0-0.4); Eosinophils % (Auto) 5.8 % (0.0-4.3); Hemoglobin 6.5 gm/dl (11.8-15.2); Lymphocytes # (Auto) 1.2 K/mm3 (1.2-5.4); Lymphocytes % (Auto) 21.1 % (13.4-35.0); Mean Corpuscular HGB Conc 31 % (32-34); Mean Corpuscular Hemoglobin 26 pg (28-32); Mean Corpuscular Volume 85 fl (84-94); Monocytes # (Auto) 0.7 K/mm3 (0.0-0.8); Monocytes % (Auto) 11.9 % (0.0-7.3); Platelet Count 240 K/mm3 (140-440); Red Blood Count 2.49 M/mm3 (3.65-5.03); Red Cell Distribution Width 16.2 % (13.2-15.2)
[2017-11-10 07:51] LABS: Albumin 2.6 g/dL (3.9-5)
[2017-11-10] MEDS ORDERED: NACL 0.9% 500 ML 500 ML IV NR (08:39)
[2017-11-10] MEDS: SODIUM CHLORIDE FLUSH SYRINGE 10 ML IV PRN (09:47)
[2017-11-10] MEDS: PROTONIX PO SCH ×2 (09:47→23:26)
[2017-11-10] MEDS: NORMODYNE PO SCH ×4 (09:48→23:27)
[2017-11-10] MEDS: NORVASC PO SCH ×2 (09:48→13:13)
[2017-11-10] MEDS: SODIUM CHLORIDE FLUSH SYRINGE 10 ML IV SCH ×2 (10:00→23:29)
--- NOTE | 2017-11-10 13:02 | Consultation ---
History of Present Illness Consult date: 11/10/17 Consult reason: elevated troponin History of present illness: Patient is a 32yr old male with a history of end-stage renal disease on peritoneal dialysis, hypertension, paroxysmal atrial fibrillation non-compliant with Eliquis and obesity. He is admitted with chief complaints of abdominal pain , shortness of breath and reports a 25lb weight gain in 3 weeks. It's also reported patient has been non-compliant with peritoneal dialysis exchange. A cardiac consultation was requested for elevation of troponin. Patient denies chest pain. Labs notable for severe anemia, hemoglobin of 6.5. In 2014, he had a normal stress thallium test. His most recent echocardiogram reports a normal left ventricular systolic function, ejection fraction 65-70%. 12 lead ECG is a sinus rhythm, no acute ischemic changes. Past History Past Medical History: atrial fib, arthritis, diabetes, hypertension Past Surgical History: Other (Left AVF placement. PD catheter palcement.) Social history: no significant social history Family history: no significant family history Medications and Allergies Allergies Allergy/AdvReac Type Severity Reaction Status Date / Time No Known Allergies Allergy Verified 08/12/13 02:52 Home Medications Medication Instructions Recorded Confirmed Last Taken Type Nortriptyline [Pamelor] 25 mg PO QHS #30 capsule 01/16/17 11/09/17 2 Weeks Ago Rx ~10/26/17 Furosemide [Lasix TAB] 40 mg PO QDAY #30 tablet 03/09/17 11/09/17 2 Weeks Ago Rx ~10/26/17 Lisinopril [Zestril TAB] 20 mg PO HS #30 tablet 03/09/17 11/09/17 2 Weeks Ago Rx ~10/26/17 Labetalol [Normodyne TAB] 300 mg PO TID #90 tablet 07/01/17 11/09/17 2 Weeks Ago Rx ~10/26/17 Pantoprazole [Protonix TAB] 40 mg PO BID #60 tablet 07/01/17 11/09/17 2 Weeks Ago Rx ~10/26/17 amLODIPine [Norvasc] 10 mg PO QDAY #30 tablet 07/01/17 11/09/17 2 Weeks Ago Rx ~10/26/17 hydrALAZINE [Apresoline TAB] 50 mg PO Q8HR #90 tablet 11/11/17 03/22/18 2 Weeks Ago Rx ~10/26/17 Active Meds: Active Medications Acetaminophen (Tylenol) 650 mg PO Q4H PRN PRN Reason: Pain MILD(1-3)/Fever >100.5/VELARDE Albuterol (Proventil) 2.5 mg IH Q4HRT PRN PRN Reason: Shortness Of Breath Epoetin Harshal (Epogen) 20,000 unit IV KATHRYN PRN PRN Reason: hemodialysis Furosemide (Lasix) 40 mg IV BID@0600,1800 [facility] Last Admin: 11/10/17 06:28 Dose: 40 mg Hydralazine HCl (Apresoline) 50 mg PO Q8HR [facility] Last Admin: 11/10/17 06:28 Dose: 50 mg Sodium Chloride (Nacl 0.9%) 100 mls @ 999 mls/hr IV KATHRYN PRN PRN Reason: Hypotension Sodium Chloride (Nacl 0.9% 500 Ml) 500 mls @ 0 mls/hr IV ONCE NR Stop: 11/10/17 15:00 Labetalol HCl (Normodyne) 300 mg PO TID [facility] Last Admin: 11/09/17 19:09 Dose: 300 mg Nifedipine (Procardia Xl) 60 mg PO Q12HR [facility] Nortriptyline HCl (Pamelor) 25 mg PO QHS [facility] Last Admin: 11/09/17 23:14 Dose: 25 mg Ondansetron HCl (Zofran) 4 mg IV Q8H PRN PRN Reason: Nausea And Vomiting Pantoprazole Sodium (Protonix) 40 mg PO BID [facility] Last Admin: 11/10/17 09:47 Dose: 40 mg Sodium Chloride (Sodium Chloride Flush Syringe 10 Ml) 10 ml IV BID [facility] Last Admin: 11/09/17 23:17 Dose: 10 ml Sodium Chloride (Sodium Chloride Flush Syringe 10 Ml) 10 ml IV PRN PRN PRN Reason: LINE FLUSH Last Admin: 11/10/17 09:47 Dose: 10 ml Valsartan (Diovan) 320 mg PO QDAY [facility] Physical Examination Vital Signs Temp Pulse Resp BP Pulse Ox 98.1 F 105 H 24 253/161 95 11/09/17 09:05 11/09/17 09:05 11/09/17 09:05 11/09/17 09:05 11/09/17 09:05 General appearance: no acute distress HEENT: Positive: PERRL Cardiac: Positive: Reg Rate and Rhythm Results 11/10/17 06:42 11/10/17 06:42 Cardiac Enzymes 11/10/17 Range/Units 06:42 AST 13 (5-40) units/L CBC 11/10/17 Range/Units 06:42 WBC 5.6 (4.5-11.0) K/mm3 RBC 2.49 L (3.65-5.03) M/mm3 Hgb 6.5 L (11.8-15.2) gm/dl Hct 21.0 L (35.5-45.6) % Plt Count 240 (140-440) K/mm3 Lymph # 1.2 (1.2-5.4) K/mm3 [place] # 0.7 (0.0-0.8) K/mm3 Eos # 0.3 (0.0-0.4) K/mm3 Baso # 0.1 (0.0-0.1) K/mm3 Comprehensive Metabolic Panel 11/10/17 Range/Units 06:42 Sodium 143 (137-145) mmol/L Potassium 4.1 (3.6-5.0) mmol/L Chloride 99.9 (98-107) mmol/L Carbon Dioxide 23 (22-30) mmol/L BUN 90 H (9-20) mg/dL Creatinine 17.6 H (0.8-1.5) mg/dL Glucose 113 H (75-100) mg/dL Calcium 6.0 L (8.4-10.2) mg/dL AST 13 (5-40) units/L ALT 21 (7-56) units/L Alkaline Phosphatase 38 (35-129) units/L Total Protein 4.3 L (6.3-8.2) g/dL Albumin 2.6 L (3.9-5) g/dL Assessment and Plan Severe anemia ESRD noncompliant with PD. Currently on HD. Hypertension Obese Hx of paroxysmal afib/flutter currently in sinus rhythm noncompliant with eliquis as an outpatient Nonspecific elevated troponin EF 65-70% on echo 10/2016. No ischemia on MPI 01/2015.
--- NOTE | 2017-11-10 13:11 | Progress Note ---
Assessment and Plan End Stage Renal Disease, Non-complaint with Peritoneal Dialysis, switching modalities to Hemodialysis: Patient has a Left AVF with positive bruit and thrill HD today for clearance and volume removal PD fluid negative for infection Fluid restriction of 1 liter per day Renally dose medications Obtain daily weights Monitor I/O's Renal diet Hypertension: UF with HD will adjust meds as needed, he is poorly compliant Anemia: Epogen 20,000 units with HD transfusion with HD today Nausea/Vomiting: Possibly related to Uremia On Protonix and Zofran Monitor Obesity: Encouraged weight loss Subjective Date of service: 11/10/17 Principal diagnosis: ESRD Interval history: seen on HD, tolerating Objective - Vital Signs Vital signs: Vital Signs - 12hr 11/10/17 11/10/17 11/10/17 01:16 04:29 06:28 Temperature 97.9 F 97.6 F Pulse Rate 85 82 81 Respiratory 18 16 Rate Blood Pressure 139/83 134/79 160/97 Blood Pressure [Right] O2 Sat by Pulse 97 96 Oximetry 11/10/17 11/10/17 11/10/17 08:41 10:00 10:45 Temperature 97.7 F 98.0 F Pulse Rate 82 78 Respiratory 20 18 Rate Blood Pressure 194/112 Blood Pressure 134/71 [Right] O2 Sat by Pulse 97 98 Oximetry 11/10/17 11/10/17 11/10/17 11:00 11:15 11:30 Temperature Pulse Rate 77 77 76 Respiratory Rate Blood Pressure 259/124 249/112 230/121 Blood Pressure [Right] O2 Sat by Pulse Oximetry 11/10/17 11/10/17 11/10/17 11:42 11:45 12:00 Temperature 97.7 F 97.7 F Pulse Rate 76 75 76 Respiratory 18 18 Rate Blood Pressure 230/121 221/86 236/116 Blood Pressure [Right] O2 Sat by Pulse Oximetry 11/10/17 11/10/17 11/10/17 12:15 12:16 12:21 Temperature 97.7 F 97.7 F Pulse Rate 76 76 76 Respiratory 18 18 Rate Blood Pressure 243/134 236/116 243/134 Blood Pressure [Right] O2 Sat by Pulse Oximetry 11/10/17 11/10/17 11/10/17 12:30 12:36 12:45 Temperature 97.7 F Pulse Rate 76 76 76 Respiratory 18 Rate Blood Pressure 216/118 216/118 218/102 Blood Pressure [Right] O2 Sat by Pulse Oximetry 11/10/17 12:57 Temperature 97.7 F Pulse Rate 76 Respiratory 18 Rate Blood Pressure 218/102 Blood Pressure [Right] O2 Sat by Pulse Oximetry - General Appearance General appearance: well-developed, well-nourished, obese EENT: ATNC, PERRL, mucous membranes moist Neck: no JVD, no carotid bruit Respiratory: Present: Clear to Ascultation. Absent: Rales, Ronchi Cardiology: regular, S1S2 Gastrointestinal: normoactive bowel sounds, no tenderness, no distended, obese Integumentary: no rash, warm and dry Neurologic: no focal deficit, no asterixis, alert and oriented x3 Musculoskeletal: other (treace pitting edema in BLE) Psychiatric: mood/affect appropriate, cooperative - Lab 11/10/17 06:42 11/10/17 06:42 Most recent lab results Calcium 6.0 mg/dL (8.4-10.2) L 11/10/17 06:42 Phosphorus 6.40 mg/dL (2.5-4.5) H 11/10/17 06:42
[2017-11-10] MEDS: DIOVAN PO SCH (13:30)
[2017-11-10] MEDS: PROCARDIA XL PO SCH ×2 (13:30→23:33)
[2017-11-10] MEDS ORDERED: NACL 0.9 (PRIMING MACHINE ONLY DIALYSIS) MC ONE (15:37)
--- NOTE | 2017-11-10 16:07 | Progress Note ---
Assessment and Plan Assessment and plan: 32 YO Male with ESRD on PD, MO,HTN, DM, OA, Asthma, A Fib, Optic Neuritis presents to ED for evaluation. Pt states that he has experienced multiple episodes of nausea, vomiting, and weight gain for the last 3 weeks with worsening symptoms over the past 4 days Diastolic CHF Afterload reduction, diuresis, monitor uop q shift, supplemental oxygen, Strict I/O, Daily weight, monitor BP q shift. Morbid obesity Balanced diet, increased physical activity at discharge Hypertensive urgency Amlodipine and lisinopril DC'd, valsartan and nifedipine initiated continue labetalol along with hydralazine scheduled and prn Atrial fibrillation Patient has a history of noncompliance with eliquis as outpatient, states he was told to stop taking it on his last visit to this hospital rate is controlled with BB ESRD on peritoneal dialysis Nephrology consulted in ED, dialysis as per renal team. Anemia of chronic disease 2 units PRBC transfused with HD, Epogen with HD DVT prophylaxis SCDs History Interval history: Patient seen and examined during hemodialysis. He has no new complaints at this time. Labs and nursing notes reviewed. Hospitalist Physical - Constitutional Vitals: Temp Pulse Resp BP Pulse Ox 97.7 F 82 18 190/107 98 11/10/17 14:30 11/10/17 14:30 11/10/17 14:30 11/10/17 14:30 11/10/17 10:00 General appearance: Present: no acute distress, well-nourished, obese - EENT Eyes: Present: PERRL, EOM intact ENT: hearing intact, clear oral mucosa - Neck Neck: Present: supple, normal ROM - Respiratory Respiratory effort: normal Respiratory: bilateral: CTA - Cardiovascular Rhythm: regular Heart Sounds: Present: S1 & S2. Absent: rub, click - Extremities Extremities: no ischemia, pulses intact Extremity abnormal: edema (BLE 2+) - Abdominal General gastrointestinal: soft, non-tender, non-distended - Integumentary Integumentary: Present: clear, warm, dry - Psychiatric Psychiatric: appropriate mood/affect, intact judgment & insight, cooperative - Neurologic Neurologic: CNII-XII intact, moves all extremities - Allied Health Allied health notes reviewed: nursing Results - Labs CBC & Chem 7: 11/10/17 06:42 11/10/17 06:42 Labs: Laboratory Last Values WBC 5.6 K/mm3 (4.5-11.0) 11/10/17 06:42 RBC 2.49 M/mm3 (3.65-5.03) L 11/10/17 06:42 Hgb 6.5 gm/dl (11.8-15.2) L 11/10/17 06:42 Hct 21.0 % (35.5-45.6) L 11/10/17 06:42 MCV 85 fl (84-94) 11/10/17 06:42 MCH 26 pg (28-32) L 11/10/17 06:42 MCHC 31 % (32-34) L 11/10/17 06:42 RDW 16.2 % (13.2-15.2) H 11/10/17 06:42 Plt Count 240 K/mm3 (140-440) 11/10/17 06:42 Lymph % (Auto) 21.1 % (13.4-35.0) 11/10/17 06:42 [place] % (Auto) 11.9 % (0.0-7.3) H 11/10/17 06:42 Eos % (Auto) 5.8 % (0.0-4.3) H 11/10/17 06:42 Baso % (Auto) 1.0 % (0.0-1.8) 11/10/17 06:42 Lymph # 1.2 K/mm3 (1.2-5.4) 11/10/17 06:42 [place] # 0.7 K/mm3 (0.0-0.8) 11/10/17 06:42 Eos # 0.3 K/mm3 (0.0-0.4) 11/10/17 06:42 Baso # 0.1 K/mm3 (0.0-0.1) 11/10/17 06:42 Seg Neutrophils % 60.2 % (40.0-70.0) 11/10/17 06:42 Seg Neutrophils # 3.4 K/mm3 (1.8-7.7) 11/10/17 06:42 Sodium 143 mmol/L (137-145) 11/10/17 06:42 Potassium 4.1 mmol/L (3.6-5.0) 11/10/17 06:42 Chloride 99.9 mmol/L (98-107) 11/10/17 06:42 Carbon Dioxide 23 mmol/L (22-30) 11/10/17 06:42 Anion Gap 24 mmol/L 11/10/17 06:42 BUN 90 mg/dL (9-20) H 11/10/17 06:42 Creatinine 17.6 mg/dL (0.8-1.5) H 11/10/17 06:42 Estimated GFR 4 ml/min 11/10/17 06:42 BUN/Creatinine Ratio 5 % 11/10/17 06:42 Glucose 113 mg/dL (75-100) H 11/10/17 06:42 Calcium 6.0 mg/dL (8.4-10.2) L 11/10/17 06:42 Phosphorus 6.40 mg/dL (2.5-4.5) H 11/10/17 06:42 Total Bilirubin 0.30 mg/dL (0.1-1.2) 11/10/17 06:42 AST 13 units/L (5-40) 11/10/17 06:42 ALT 21 units/L (7-56) 11/10/17 06:42 Alkaline Phosphatase 38 units/L (35-129) 11/10/17 06:42 Troponin T 0.403 ng/mL (0.00-0.029) H* 11/09/17 09:44 NT-Pro-B Natriuret Pep > 02261 pg/mL (0-450) H 11/09/17 09:44 Total Protein 4.3 g/dL (6.3-8.2) L 11/10/17 06:42 Albumin 2.6 g/dL (3.9-5) L 11/10/17 06:42 Albumin/Globulin Ratio 1.5 % 11/10/17 06:42 Triglycerides 98 mg/dL (2-149) 11/09/17 09:44 Cholesterol 147 mg/dL (50-199) 11/09/17 09:44 LDL Cholesterol Direct 107 mg/dL (50-130) 11/09/17 09:44 HDL Cholesterol 35 mg/dL (40-59) L 11/09/17 09:44 Cholesterol/HDL Ratio 4.20 % 11/09/17 09:44 PTH Intact 475.9 pg/mL (15-65) H 11/10/17 06:42 Fluid Type Peritoneal 11/09/17 23:40 Fluid Color Yellow 11/09/17 23:40 Fluid Appearance Sl. hazy 11/09/17 23:40 Fluid WBC 83 /mm3 11/09/17 23:40 Fluid RBC 186 /mm3 11/09/17 23:40 Fluid Seg Neutrophils 5.0 % 11/09/17 23:40 Fluid Lymphocytes 89.0 % 11/09/17 23:40 Fluid Reactive Lymphs 0 % 11/09/17 23:40 Fluid Monocytes 4.0 % 11/09/17 23:40 Fluid Eosinophils 0 % 11/09/17 23:40 Fluid Basophils 2.0 % 11/09/17 23:40 Fluid Comment 11/09/17 23:40 Hepatitis A IgM Ab Non-reactive (NonReactive) 11/09/17 19:27 Hep Bs Antigen Non-reactive (Negative) 11/09/17 19:27 Hep B Core IgM Ab Non-reactive (NonReactive) 11/09/17 19:27 Hepatitis C Antibody Non-reactive (NonReactive) 11/09/17 19:27 Blood Type B POSITIVE 11/10/17 09:20 Antibody Screen Negative 11/10/17 09:20 Crossmatch See Detail 11/10/17 09:20
[2017-11-10] MEDS: PAMELOR PO SCH (23:26)
[2017-11-10] MEDS: ELIQUIS PO SCH (23:28)
[2017-11-11] MEDS: APRESOLINE PO SCH ×4 (00:25→23:55)
[2017-11-11] MEDS: LASIX IV SCH ×2 (05:46→18:00)
[2017-11-11] MEDS: PROTONIX PO SCH ×2 (09:43→23:38)
[2017-11-11] MEDS: ELIQUIS PO SCH ×2 (09:43→23:37)
[2017-11-11] MEDS: NORMODYNE PO SCH ×3 (09:44→23:46)
[2017-11-11] MEDS: PROCARDIA XL PO SCH ×2 (09:46→23:45)
[2017-11-11] MEDS: DIOVAN PO SCH (09:46)
[2017-11-11] MEDS: SODIUM CHLORIDE FLUSH SYRINGE 10 ML IV PRN ×2 (10:00→14:49)
[2017-11-11] MEDS: SODIUM CHLORIDE FLUSH SYRINGE 10 ML IV SCH ×2 (10:00→23:50)
[2017-11-11] MEDS ORDERED: NACL 0.9% 100 ML IV PRN (10:53)
[2017-11-11 11:35] LABS: Basophils # (Auto) 0.1 K/mm3 (0.0-0.1); Basophils % (Auto) 0.9 % (0.0-1.8); Eosinophils # (Auto) 0.3 K/mm3 (0.0-0.4); Eosinophils % (Auto) 4.4 % (0.0-4.3); Hematocrit 25.4 % (35.5-45.6); Hemoglobin 8.2 gm/dl (11.8-15.2); Lymphocytes # (Auto) 0.9 K/mm3 (1.2-5.4); Lymphocytes % (Auto) 14.8 % (13.4-35.0); Mean Corpuscular HGB Conc 32 % (32-34); Mean Corpuscular Hemoglobin 27 pg (28-32); Mean Corpuscular Volume 84 fl (84-94); Monocytes # (Auto) 0.8 K/mm3 (0.0-0.8); Monocytes % (Auto) 12.6 % (0.0-7.3); Platelet Count 240 K/mm3 (140-440); Red Blood Count 3.03 M/mm3 (3.65-5.03); Red Cell Distribution Width 15.8 % (13.2-15.2)
[2017-11-11 11:40] LABS: Calcium 6.3 mg/dL (8.4-10.2)
[2017-11-11] MEDS ORDERED: POLYCILLIN 2,000 MG in NACL 0.9% 50 ML IV SCH (13:00)
--- NOTE | 2017-11-11 13:21 | Progress Note ---
Assessment and Plan - Patient Problems (1) Diastolic CHF Current Visit: Yes Status: Acute Qualifiers: Heart failure chronicity: acute on chronic Qualified Code(s): I50.33 - Acute on chronic diastolic (congestive) heart failure Plan to address problem: The patient presented with fluid overload, associated with suboptimal dialysis and uncontrolled hypertension. Hemodialysis has been established for more optimal fluid management. The mild isolated rising troponin is a nonspecific finding, no further cardiac ischemic workup is warranted. We will get an echocardiogram for reassessment of left ventricle systolic function. (2) Hypertensive urgency Current Visit: Yes Status: Acute Plan to address problem: Aggressive blood pressure control and management. Subjective Date of service: 11/11/17 Principal diagnosis: ESRD Interval history: The patient is a 32-year-old man with end-stage renal disease, chronic uncontrolled hypertension and chronic progressive anemia. He also is reported with paroxysmal atrial fibrillation, but noncompliant with prescribed oral anticoagulation therapy. His primary presenting complaint on this admission was nausea and vomiting and progressive weight gain. He also reported that he was noncompliant with his peritoneal dialysis for 2 days prior to presentation. On this admission, he has been transitioned from peritoneal to hemodialysis. Cardiology consultation was requested for a nonspecific mild isolated rise in troponin level. It'll be noted that the patient had no chest pain, but did report some shortness of breath associated with this presenting complaints. Blood pressure was severely elevated on presentation, 194 systolic. EKG was sinus rhythm, incomplete right bundle-branch block and nonspecific ST and T- wave changes. A chest x-ray showed no significant interstitial edema, but there was severe cardiomegaly. An echocardiogram done about a year ago demonstrated well preserved left ventricle systolic function, ejection fraction 55-60%, but there was severe, concentric left ventricle hypertrophy. The left ventricle hypertrophy is likely responsible for the massive cardiomegaly on the x-ray. Other comorbidities include chronic progressive anemia. The patient's hematocrit on this presentation is 21-24, but was normal at 42 on laboratory exam one year ago. Currently, he is on the medical floor, comfortable in no acute distress, has remained in a stable sinus rhythm. Objective Vital Signs Temp Pulse Resp Resp BP BP Pulse Ox 11/11/17 09:46 82 11/11/17 09:44 82 136/82 11/11/17 05:46 80 139/79 11/11/17 03:55 98.8 F 82 24 143/86 98 11/10/17 23:30 94 11/10/17 23:27 74 138/74 11/10/17 22:00 22 100 11/10/17 19:28 98.7 F 82 28 H 150/85 97 11/10/17 16:00 98.5 F 80 22 156/98 100 11/10/17 14:30 97.7 F 82 18 190/107 11/10/17 14:15 63 215/124 11/10/17 14:00 80 246/123 11/10/17 13:45 77 216/116 11/10/17 13:36 97.7 F 78 18 199/126 11/10/17 13:30 77 199/126 - Physical Examination General: No Apparent Distress HEENT: Positive: PERRL Neck: Positive: neck supple, trachea midline Cardiac: Positive: Reg Rate and Rhythm Lungs: Positive: Decreased Breath Sounds Neuro: Positive: Grossly Intact Abdomen: Positive: Soft Skin: Positive: Clear Extremities: Absent: edema - Labs and Meds CBC 11/11/17 Range/Units 11:06 WBC 6.3 (4.5-11.0) K/mm3 RBC 3.03 L (3.65-5.03) M/mm3 Hgb 8.2 L (11.8-15.2) gm/dl Hct 25.4 L (35.5-45.6) % Plt Count 240 (140-440) K/mm3 Lymph # 0.9 L (1.2-5.4) K/mm3 [place] # 0.8 (0.0-0.8) K/mm3 Eos # 0.3 (0.0-0.4) K/mm3 Baso # 0.1 (0.0-0.1) K/mm3 Comprehensive Metabolic Panel 11/11/17 Range/Units 11:06 Sodium 142 (137-145) mmol/L Potassium 4.0 (3.6-5.0) mmol/L Chloride 100.3 (98-107) mmol/L Carbon Dioxide 26 (22-30) mmol/L BUN 58 H (9-20) mg/dL Creatinine 13.5 H (0.8-1.5) mg/dL Glucose 90 (75-100) mg/dL Calcium 6.3 L (8.4-10.2) mg/dL
--- NOTE | 2017-11-11 14:25 | Progress Note ---
Assessment and Plan Assessment and plan: 32 YO Male with ESRD on PD, MO,HTN, DM, OA, Asthma, A Fib, Optic Neuritis presents to ED for evaluation. Pt states that he has experienced multiple episodes of nausea, vomiting, and weight gain for the last 3 weeks with worsening symptoms over the past 4 days Diastolic CHF Afterload reduction, diuresis, monitor uop q shift, supplemental oxygen, Strict I/O, Daily weight, monitor BP q shift. Morbid obesity Balanced diet, increased physical activity at discharge Hypertensive urgency Amlodipine and lisinopril DC'd, valsartan and nifedipine initiated continue labetalol along with hydralazine scheduled and prn Atrial fibrillation Patient has a history of noncompliance with eliquis as outpatient, counseled about improved compliance -poor candidate for kevin given anemia, cardiology input appreciated rate is controlled with BB ESRD who became profoundly uremic on PD due to non compliance started on HD, improved Anemia of chronic disease 2 units PRBC transfused with HD, Epogen with HD DVT prophylaxis SCDs Hospitalist Physical - Constitutional Vitals: Temp Pulse Resp BP Pulse Ox 98.3 F 79 24 148/88 98 11/11/17 13:09 11/11/17 13:16 11/11/17 13:09 11/11/17 13:09 11/11/17 13:16 General appearance: Present: no acute distress, well-nourished, obese Results - Labs CBC & Chem 7: 11/11/17 11:06 11/11/17 11:06 Labs: Laboratory Last Values WBC 6.3 K/mm3 (4.5-11.0) 11/11/17 11:06 RBC 3.03 M/mm3 (3.65-5.03) L 11/11/17 11:06 Hgb 8.2 gm/dl (11.8-15.2) L 11/11/17 11:06 Hct 25.4 % (35.5-45.6) L 11/11/17 11:06 MCV 84 fl (84-94) 11/11/17 11:06 MCH 27 pg (28-32) L 11/11/17 11:06 MCHC 32 % (32-34) 11/11/17 11:06 RDW 15.8 % (13.2-15.2) H 11/11/17 11:06 Plt Count 240 K/mm3 (140-440) 11/11/17 11:06 Lymph % (Auto) 14.8 % (13.4-35.0) 11/11/17 11:06 [place] % (Auto) 12.6 % (0.0-7.3) H 11/11/17 11:06 Eos % (Auto) 4.4 % (0.0-4.3) H 11/11/17 11:06 Baso % (Auto) 0.9 % (0.0-1.8) 11/11/17 11:06 Lymph # 0.9 K/mm3 (1.2-5.4) L 11/11/17 11:06 [place] # 0.8 K/mm3 (0.0-0.8) 11/11/17 11:06 Eos # 0.3 K/mm3 (0.0-0.4) 11/11/17 11:06 Baso # 0.1 K/mm3 (0.0-0.1) 11/11/17 11:06 Seg Neutrophils % 67.3 % (40.0-70.0) 11/11/17 11:06 Seg Neutrophils # 4.2 K/mm3 (1.8-7.7) 11/11/17 11:06 Sodium 142 mmol/L (137-145) 11/11/17 11:06 Potassium 4.0 mmol/L (3.6-5.0) 11/11/17 11:06 Chloride 100.3 mmol/L (98-107) 11/11/17 11:06 Carbon Dioxide 26 mmol/L (22-30) 11/11/17 11:06 Anion Gap 20 mmol/L 11/11/17 11:06 BUN 58 mg/dL (9-20) H 11/11/17 11:06 Creatinine 13.5 mg/dL (0.8-1.5) H 11/11/17 11:06 Estimated GFR 5 ml/min 11/11/17 11:06 BUN/Creatinine Ratio 4 % 11/11/17 11:06 Glucose 90 mg/dL (75-100) 11/11/17 11:06 Calcium 6.3 mg/dL (8.4-10.2) L 11/11/17 11:06 Phosphorus 5.30 mg/dL (2.5-4.5) H 11/11/17 11:06 Magnesium 1.50 mg/dL (1.7-2.3) L 11/11/17 11:06 Total Bilirubin 0.30 mg/dL (0.1-1.2) 11/10/17 06:42 AST 13 units/L (5-40) 11/10/17 06:42 ALT 21 units/L (7-56) 11/10/17 06:42 Alkaline Phosphatase 38 units/L (35-129) 11/10/17 06:42 Troponin T 0.403 ng/mL (0.00-0.029) H* 11/09/17 09:44 NT-Pro-B Natriuret Pep > 10485 pg/mL (0-450) H 11/09/17 09:44 Total Protein 4.3 g/dL (6.3-8.2) L 11/10/17 06:42 Albumin 2.6 g/dL (3.9-5) L 11/10/17 06:42 Albumin/Globulin Ratio 1.5 % 11/10/17 06:42 Triglycerides 98 mg/dL (2-149) 11/09/17 09:44 Cholesterol 147 mg/dL (50-199) 11/09/17 09:44 LDL Cholesterol Direct 107 mg/dL (50-130) 11/09/17 09:44 HDL Cholesterol 35 mg/dL (40-59) L 11/09/17 09:44 Cholesterol/HDL Ratio 4.20 % 11/09/17 09:44 PTH Intact 475.9 pg/mL (15-65) H 11/10/17 06:42 Fluid Type Peritoneal 11/09/17 23:40 Fluid Color Yellow 11/09/17 23:40 Fluid Appearance Sl. hazy 11/09/17 23:40 Fluid WBC 83 /mm3 11/09/17 23:40 Fluid RBC 186 /mm3 11/09/17 23:40 Fluid Seg Neutrophils 5.0 % 11/09/17 23:40 Fluid Lymphocytes 89.0 % 11/09/17 23:40 Fluid Reactive Lymphs 0 % 11/09/17 23:40 Fluid Monocytes 4.0 % 11/09/17 23:40 Fluid Eosinophils 0 % 11/09/17 23:40 Fluid Basophils 2.0 % 11/09/17 23:40 Fluid Comment 11/09/17 23:40 Hepatitis A IgM Ab Non-reactive (NonReactive) 11/09/17 19:27 Hep Bs Antigen Non-reactive (Negative) 11/09/17 19:27 Hep B Core IgM Ab Non-reactive (NonReactive) 11/09/17 19:27 Hepatitis C Antibody Non-reactive (NonReactive) 11/09/17 19:27 Blood Type B POSITIVE 11/10/17 09:20 Antibody Screen Negative 11/10/17 09:20 Crossmatch See Detail 11/10/17 09:20
[2017-11-11] MEDS: POLYCILLIN/NS 2 GM/100 ML 2 GM/100 ML BAG IV SCH (15:00)
[2017-11-11] MEDS ORDERED: MAGNESIUM SULFATE IV ONE (16:24)
--- NOTE | 2017-11-11 16:53 | Progress Note ---
Assessment and Plan End Stage Renal Disease, Non-complaint with Peritoneal Dialysis, switching modalities to Hemodialysis: Patient has a Left AVF with positive bruit and thrill s/p HD yesterday, HD again today for clearance and volume removal PD fluid negative for infection Fluid restriction of 1 liter per day Renally dose medications Obtain daily weights Monitor I/O's Renal diet Hypertension: UF with HD will adjust meds as needed, he is poorly compliant Anemia: Epogen 20,000 units with HD transfusion with HD today Nausea/Vomiting: Possibly related to Uremia On Protonix and Zofran Monitor Obesity: Encouraged weight loss Plan d/w HD RN. Subjective Date of service: 11/11/17 Principal diagnosis: ESRD Interval history: Seen on HD. Denies CP, SHOB. Objective - Exam Narrative Exam: General appearance: AAOX3 EENT: ATNC, PERRL, mucous membranes moist Neck: no JVD, no carotid bruit Respiratory: Present: Clear to Auscultation. Absent: Rales, Ronchi Cardiology: regular, S1S2 Gastrointestinal: normoactive bowel sounds, no tenderness, no distended, obese Integumentary: no rash, warm and dry Neurologic: no focal deficit, no asterixis, alert and oriented x3 Musculoskeletal: other (treace pitting edema in BLE) Psychiatric: mood/affect appropriate, cooperative - Vital Signs Vital signs: Vital Signs - 12hr 11/11/17 11/11/17 11/11/17 05:46 09:41 09:44 Temperature 98.3 F Pulse Rate 80 84 82 Respiratory 18 Rate Blood Pressure 139/79 136/82 136/82 O2 Sat by Pulse 95 Oximetry 11/11/17 11/11/17 11/11/17 09:46 10:00 13:09 Temperature 98.3 F Pulse Rate 82 Respiratory 24 Rate Blood Pressure 148/88 O2 Sat by Pulse 97 Oximetry 11/11/17 13:16 Temperature Pulse Rate 79 Respiratory Rate Blood Pressure O2 Sat by Pulse 98 Oximetry - Lab 11/11/17 11:06 11/11/17 11:06 Most recent lab results Calcium 6.3 mg/dL (8.4-10.2) L 11/11/17 11:06 Phosphorus 5.30 mg/dL (2.5-4.5) H 11/11/17 11:06 Magnesium 1.50 mg/dL (1.7-2.3) L 11/11/17 11:06
[2017-11-11] MEDS ORDERED: MAGNESIUM SULFATE 2GM/50ML 2 GM/50 ML BAG IV ONE ×2 (18:00→21:00)
[2017-11-11] MEDS ORDERED: NACL 0.9 (PRIMING MACHINE ONLY DIALYSIS) MC ONE (21:38)
[2017-11-11] MEDS: PAMELOR PO SCH (23:37)
[2017-11-12] MEDS: POLYCILLIN/NS 2 GM/100 ML 2 GM/100 ML BAG IV SCH (03:40)
[2017-11-12] MEDS: APRESOLINE PO SCH ×3 (07:08→22:26)
[2017-11-12] MEDS: LASIX IV SCH ×2 (07:09→17:38)
[2017-11-12] MEDS: NORMODYNE PO SCH ×3 (08:00→22:25)
[2017-11-12] MEDS: PROTONIX PO SCH ×2 (09:56→22:25)
[2017-11-12] MEDS: DIOVAN PO SCH (09:58)
[2017-11-12] MEDS: PROCARDIA XL PO SCH ×2 (09:59→22:25)
[2017-11-12] MEDS: ELIQUIS PO SCH ×2 (09:59→22:27)
[2017-11-12] MEDS: SODIUM CHLORIDE FLUSH SYRINGE 10 ML IV SCH ×2 (10:02→22:26)
--- NOTE | 2017-11-12 10:38 | Progress Note ---
Assessment and Plan End Stage Renal Disease, Non-complaint with Peritoneal Dialysis, switching modalities to Hemodialysis: Patient has a Left AVF with positive bruit and thrill s/p HD yesterday, no HD today, Plan for HD tomorrow. PD fluid negative for infection Fluid restriction of 1 liter per day Renally dose medications Obtain daily weights Monitor I/O's Renal diet Essential Hypertension: UF with HD will adjust meds as needed, he is poorly compliant Anemia of chronic disease due to ESRD: Epogen 20,000 units with HD transfusion PRN per primary Nausea/Vomiting: Possibly related to Uremia On Protonix and Zofran Monitor Obesity: Encouraged weight loss Plan d/w bedside RN. Kuldip Preston MD [phone] Subjective Date of service: 11/12/17 Principal diagnosis: ESRD Interval history: Tolerated HD yesterday. Denies CP, SHOB. Objective - Exam Narrative Exam: General appearance: AAOX3 EENT: ATNC, PERRL, mucous membranes moist Neck: no JVD, no carotid bruit Respiratory: Present: Clear to Auscultation. Absent: Rales, Ronchi Cardiology: regular, S1S2 Gastrointestinal: normoactive bowel sounds, no tenderness, no distended, obese, PD catheter intact Integumentary: no rash, warm and dry Neurologic: no focal deficit, no asterixis, alert and oriented x3 Musculoskeletal: other (trace pitting edema in BLE) Psychiatric: mood/affect appropriate, cooperative - Vital Signs Vital signs: Vital Signs - 12hr 11/11/17 11/11/17 11/12/17 23:46 23:55 07:08 Temperature Pulse Rate 84 83 84 Respiratory Rate Blood Pressure 163/89 184/105 171/99 O2 Sat by Pulse Oximetry 11/12/17 11/12/17 11/12/17 08:00 08:14 09:58 Temperature 97.9 F Pulse Rate 84 84 84 Respiratory 20 Rate Blood Pressure 141/82 141/82 141/82 O2 Sat by Pulse 94 Oximetry - Lab 11/11/17 11:06 11/12/17 11:42 Most recent lab results Calcium 6.3 mg/dL (8.4-10.2) L 11/11/17 11:06 Phosphorus 5.30 mg/dL (2.5-4.5) H 11/11/17 11:06 Magnesium 1.50 mg/dL (1.7-2.3) L 11/11/17 11:06
[2017-11-12 12:27] LABS: Calcium 6.8 mg/dL (8.4-10.2)
--- NOTE | 2017-11-12 12:50 | Progress Note ---
Assessment and Plan - Patient Problems (1) Diastolic CHF Current Visit: Yes Status: Acute Qualifiers: Heart failure chronicity: acute on chronic Qualified Code(s): I50.33 - Acute on chronic diastolic (congestive) heart failure Plan to address problem: Patient presented with heart failure with preserved ejection fraction. There is cardiomegaly on his chest x-ray, but this is attributable to severe concentric left ventricular hypertrophy. On previous echocardiograms, left ventricular chamber size and systolic function has been normal. Heart failure is also related to his poor compliance with dialysis and severe uncontrolled hypertension. Hemodialysis has been established for fluid and electrolyte management. Blood pressure control is better on the combination of nifedipine XL and valsartan. Echocardiogram will be ordered for reassessment of left ventricular chamber size and systolic function at this time. (2) Hypertensive urgency Current Visit: Yes Status: Acute Plan to address problem: Procardia XL and valsartan. (3) Paroxysmal atrial fibrillation Current Visit: Yes Status: Acute Plan to address problem: Poorly documented history of paroxysmal atrial fibrillation, patient is not optimal candidate for oral anticoagulation due to progressive anemia. On this presentation, he has remained in a stable sinus rhythm. Subjective Date of service: 11/12/17 Principal diagnosis: ESRD Interval history: Patient looks and feels better, no chest pain and no shortness of breath. Laying supine in bed and comfortable. Objective Vital Signs Temp Pulse Pulse Resp BP Pulse Ox 11/12/17 09:58 84 141/82 11/12/17 08:14 97.9 F 84 20 141/82 94 11/12/17 08:00 84 141/82 11/12/17 07:08 84 171/99 11/11/17 23:55 83 184/105 11/11/17 23:46 84 163/89 11/11/17 22:00 88 18 11/11/17 21:18 94 11/11/17 20:41 97.2 F L 84 18 152/81 96 11/11/17 19:10 98.0 F 78 18 187/106 11/11/17 18:40 74 182/98 11/11/17 18:30 76 170/98 11/11/17 18:15 78 175/103 11/11/17 18:00 77 182/114 11/11/17 17:45 78 183/101 11/11/17 17:30 78 180/107 11/11/17 17:15 77 184/109 11/11/17 17:00 77 190/106 11/11/17 16:45 77 179/99 11/11/17 16:30 77 182/103 11/11/17 16:15 79 188/111 11/11/17 16:00 78 184/100 11/11/17 15:45 79 169/65 11/11/17 15:30 80 169/86 11/11/17 15:20 78 171/84 11/11/17 15:10 97.6 F 82 18 148/94 11/11/17 13:16 79 98 11/11/17 13:09 98.3 F 24 148/88 - Physical Examination General: No Apparent Distress HEENT: Positive: PERRL Neck: Positive: neck supple, trachea midline Cardiac: Positive: Reg Rate and Rhythm Lungs: Positive: Decreased Breath Sounds Neuro: Positive: Grossly Intact Abdomen: Positive: Soft Skin: Positive: Clear Extremities: Absent: edema - Labs and Meds Comprehensive Metabolic Panel 11/12/17 Range/Units 11:42 Sodium 139 (137-145) mmol/L Potassium 4.1 (3.6-5.0) mmol/L Chloride 99.6 (98-107) mmol/L Carbon Dioxide 28 (22-30) mmol/L BUN 42 H (9-20) mg/dL Creatinine 11.3 H (0.8-1.5) mg/dL Glucose 88 (75-100) mg/dL Calcium 6.8 L (8.4-10.2) mg/dL
[2017-11-12] MEDS ORDERED: NACL 0.9% 100 ML IV PRN (15:11)
[2017-11-12] MEDS: PAMELOR PO SCH (22:28)
--- NOTE | 2017-11-13 00:25 | Progress Note ---
Assessment and Plan Assessment and plan: 32 YO Male with ESRD on PD, MO,HTN, DM, OA, Asthma, A Fib, Optic Neuritis presents to ED for evaluation. Pt states that he has experienced multiple episodes of nausea, vomiting, and weight gain for the last 3 weeks with worsening symptoms over the past 4 days Diastolic CHF Afterload reduction, diuresis, monitor uop q shift, supplemental oxygen, Strict I/O, Daily weight, monitor BP q shift. Morbid obesity Balanced diet, increased physical activity at discharge Hypertensive urgency Amlodipine and lisinopril DC'd, valsartan and nifedipine initiated continue labetalol along with hydralazine scheduled and prn Atrial fibrillation Patient has a history of noncompliance with eliquis as outpatient, counseled about improved compliance -poor candidate for kevin given anemia, cardiology input appreciated rate is controlled with BB ESRD who became profoundly uremic on PD due to non compliance started on HD, improved needs HD chairtime prior to dc Anemia of chronic disease 2 units PRBC transfused with HD, Epogen with HD DVT prophylaxis SCDs Hospitalist Physical - Constitutional Vitals: Temp Pulse Resp BP Pulse Ox 98.3 F 80 16 158/94 95 11/12/17 16:42 11/12/17 22:26 11/12/17 22:00 11/12/17 22:26 11/12/17 20:42 General appearance: Present: no acute distress, well-nourished, obese Results - Labs CBC & Chem 7: 11/11/17 11:06 11/12/17 11:42 Labs: Laboratory Last Values WBC 6.3 K/mm3 (4.5-11.0) 11/11/17 11:06 RBC 3.03 M/mm3 (3.65-5.03) L 11/11/17 11:06 Hgb 8.2 gm/dl (11.8-15.2) L 11/11/17 11:06 Hct 25.4 % (35.5-45.6) L 11/11/17 11:06 MCV 84 fl (84-94) 11/11/17 11:06 MCH 27 pg (28-32) L 11/11/17 11:06 MCHC 32 % (32-34) 11/11/17 11:06 RDW 15.8 % (13.2-15.2) H 11/11/17 11:06 Plt Count 240 K/mm3 (140-440) 11/11/17 11:06 Lymph % (Auto) 14.8 % (13.4-35.0) 11/11/17 11:06 Villalba % (Auto) 12.6 % (0.0-7.3) H 11/11/17 11:06 Eos % (Auto) 4.4 % (0.0-4.3) H 11/11/17 11:06 Baso % (Auto) 0.9 % (0.0-1.8) 11/11/17 11:06 Lymph # 0.9 K/mm3 (1.2-5.4) L 11/11/17 11:06 Villalba # 0.8 K/mm3 (0.0-0.8) 11/11/17 11:06 Eos # 0.3 K/mm3 (0.0-0.4) 11/11/17 11:06 Baso # 0.1 K/mm3 (0.0-0.1) 11/11/17 11:06 Seg Neutrophils % 67.3 % (40.0-70.0) 11/11/17 11:06 Seg Neutrophils # 4.2 K/mm3 (1.8-7.7) 11/11/17 11:06 Sodium 139 mmol/L (137-145) 11/12/17 11:42 Potassium 4.1 mmol/L (3.6-5.0) 11/12/17 11:42 Chloride 99.6 mmol/L (98-107) 11/12/17 11:42 Carbon Dioxide 28 mmol/L (22-30) 11/12/17 11:42 Anion Gap 16 mmol/L 11/12/17 11:42 BUN 42 mg/dL (9-20) H 11/12/17 11:42 Creatinine 11.3 mg/dL (0.8-1.5) H 11/12/17 11:42 Estimated GFR 6 ml/min 11/12/17 11:42 BUN/Creatinine Ratio 4 % 11/12/17 11:42 Glucose 88 mg/dL (75-100) 11/12/17 11:42 Calcium 6.8 mg/dL (8.4-10.2) L 11/12/17 11:42 Phosphorus 4.50 mg/dL (2.5-4.5) 11/12/17 11:42 Magnesium 1.70 mg/dL (1.7-2.3) 11/12/17 11:42 Total Bilirubin 0.30 mg/dL (0.1-1.2) 11/10/17 06:42 AST 13 units/L (5-40) 11/10/17 06:42 ALT 21 units/L (7-56) 11/10/17 06:42 Alkaline Phosphatase 38 units/L (35-129) 11/10/17 06:42 Troponin T 0.403 ng/mL (0.00-0.029) H* 11/09/17 09:44 NT-Pro-B Natriuret Pep > 74616 pg/mL (0-450) H 11/09/17 09:44 Total Protein 4.3 g/dL (6.3-8.2) L 11/10/17 06:42 Albumin 2.6 g/dL (3.9-5) L 11/10/17 06:42 Albumin/Globulin Ratio 1.5 % 11/10/17 06:42 Triglycerides 98 mg/dL (2-149) 11/09/17 09:44 Cholesterol 147 mg/dL (50-199) 11/09/17 09:44 LDL Cholesterol Direct 107 mg/dL (50-130) 11/09/17 09:44 HDL Cholesterol 35 mg/dL (40-59) L 11/09/17 09:44 Cholesterol/HDL Ratio 4.20 % 11/09/17 09:44 PTH Intact 475.9 pg/mL (15-65) H 11/10/17 06:42 Fluid Type Peritoneal 11/09/17 23:40 Fluid Color Yellow 11/09/17 23:40 Fluid Appearance Sl. hazy 11/09/17 23:40 Fluid WBC 83 /mm3 11/09/17 23:40 Fluid RBC 186 /mm3 11/09/17 23:40 Fluid Seg Neutrophils 5.0 % 11/09/17 23:40 Fluid Lymphocytes 89.0 % 11/09/17 23:40 Fluid Reactive Lymphs 0 % 11/09/17 23:40 Fluid Monocytes 4.0 % 11/09/17 23:40 Fluid Eosinophils 0 % 11/09/17 23:40 Fluid Basophils 2.0 % 11/09/17 23:40 Fluid Comment 11/09/17 23:40 Hepatitis A IgM Ab Non-reactive (NonReactive) 11/09/17 19:27 Hep Bs Antigen Non-reactive (Negative) 11/09/17 19:27 Hep B Core IgM Ab Non-reactive (NonReactive) 11/09/17 19:27 Hepatitis C Antibody Non-reactive (NonReactive) 11/09/17 19:27 Blood Type B POSITIVE 11/10/17 09:20 Antibody Screen Negative 11/10/17 09:20 Crossmatch See Detail 11/10/17 09:20
[2017-11-13] MEDS: LASIX IV SCH ×2 (06:16→17:28)
[2017-11-13] MEDS: APRESOLINE PO SCH ×2 (06:16→17:28)
--- NOTE | 2017-11-13 09:26 | Progress Note ---
Assessment and Plan End Stage Renal Disease, Non-complaint with Peritoneal Dialysis, switching modalities to Hemodialysis: Patient has a Left AVF with positive bruit and thrill HD today for clearance and volume removal patient does not want to switch to HD now and want to cont PD. PD fluid growing Diphtheroids, ID on board, most likely contaminant, will repeat PD fluid studies. patient can be discharged from renal standpoint when cleared by ID Fluid restriction of 1 liter per day Renally dose medications Obtain daily weights Monitor I/O's Renal diet Essential Hypertension: UF with HD will adjust meds as needed, he is poorly compliant Anemia of chronic disease due to ESRD: Epogen 20,000 units with HD transfusion PRN per primary Nausea/Vomiting: Possibly related to Uremia On Protonix and Zofran Monitor Obesity: Encouraged weight loss Subjective Date of service: 11/13/17 Principal diagnosis: ESRD Interval history: cont to have mild abdominal pain Objective - Vital Signs Vital signs: Vital Signs - 12hr 11/12/17 11/12/17 11/12/17 22:00 22:25 22:26 Temperature Pulse Rate 80 80 Pulse Rate [ 80 From Monitor] Respiratory 16 Rate Blood Pressure 158/94 158/94 O2 Sat by Pulse Oximetry 11/13/17 11/13/17 11/13/17 00:29 06:16 07:35 Temperature 98.2 F 97.7 F Pulse Rate 81 83 87 Pulse Rate [ From Monitor] Respiratory 20 22 Rate Blood Pressure 138/72 143/75 142/88 O2 Sat by Pulse 95 97 Oximetry - General Appearance General appearance: well-developed, well-nourished, appears stated age EENT: ATNC, PERRL, mucous membranes moist Neck: no JVD, no carotid bruit Respiratory: Present: Clear to Ascultation. Absent: Rales, Ronchi Cardiology: regular, S1S2 Gastrointestinal: normoactive bowel sounds, no hypoactive bowel sounds, no absent bowel sounds Integumentary: no rash, warm and dry Neurologic: no focal deficit, no asterixis, alert and oriented x3 Musculoskeletal: other (trace pitting edema in BLE) Psychiatric: mood/affect appropriate, cooperative - Lab 11/11/17 11:06 11/12/17 11:42 Most recent lab results Calcium 6.8 mg/dL (8.4-10.2) L 11/12/17 11:42 Phosphorus 4.50 mg/dL (2.5-4.5) 11/12/17 11:42 Magnesium 1.70 mg/dL (1.7-2.3) 11/12/17 11:42
--- NOTE | 2017-11-13 10:06 | Consultation ---
History of Present Illness - Reason for Consult Consult date: 11/13/17 GPB in peritonial fluid Requesting physician: EDITH GUILLEN - History of Present Illness 32 years old male with history of ESRD on home peritoneal dialysis. Peritoneal catheter was placed in May 2017. After placement he had a peritoneal catheter associated infection. Patient also has history of hypertension, diabetes, Afib and asthma. Patient was admitted on due to 3 weeks history of persistent nausea, vomiting, abdominal bloating. Patient denies any cloudy peritoneal fluid. Patient denies any peritoneal catheter site erythema, edema or drainage. Patient has been non-compliant with Peritoneal Dialysis and has a left AVF in anticipation for switching to hemodialysis from last year, however patient wanted to stay on PD. In the ED, initial temperature 98.5, heart rate 105, respiration 24, O2 sat 95, blood pressure 153/160. White count 6.1. Hemoglobin 7.7. Platelets 314. Creatinine 19. Potassium 4.2. Ascitic fluid showed 83 white blood cells, hazy fluid. Chest x-ray showed cardiomegaly. Microbiology: Ascitic fluid cultures: Diphtheroids Current Antimicrobials: 11/13 ampicillin Previous Antimicrobials: Past History Past Medical History: atrial fib, arthritis, diabetes, hypertension Past Surgical History: Other (Left AVF placement. PD catheter palcement.) Social history: no significant social history Family history: no significant family history Medications and Allergies Allergies Allergy/AdvReac Type Severity Reaction Status Date / Time No Known Allergies Allergy Verified 08/12/13 02:52 Home Medications Medication Instructions Recorded Confirmed Last Taken Type Nortriptyline [Pamelor] 25 mg PO QHS #30 capsule 01/16/17 11/09/17 2 Weeks Ago Rx ~10/26/17 Furosemide [Lasix TAB] 40 mg PO QDAY #30 tablet 03/09/17 11/09/17 2 Weeks Ago Rx ~10/26/17 Lisinopril [Zestril TAB] 20 mg PO HS #30 tablet 03/09/17 11/09/17 2 Weeks Ago Rx ~10/26/17 Labetalol [Normodyne TAB] 300 mg PO TID #90 tablet 07/01/17 11/09/17 2 Weeks Ago Rx ~10/26/17 Pantoprazole [Protonix TAB] 40 mg PO BID #60 tablet 07/01/17 11/09/17 2 Weeks Ago Rx ~03/08/18 amLODIPine [Norvasc] 10 mg PO QDAY #30 tablet 07/01/17 11/09/17 2 Weeks Ago Rx ~10/26/17 hydrALAZINE [Apresoline TAB] 50 mg PO Q8HR #90 tablet 07/01/17 11/09/17 2 Weeks Ago Rx ~10/26/17 Active Meds: Active Medications Acetaminophen (Tylenol) 650 mg PO Q4H PRN PRN Reason: Pain MILD(1-3)/Fever >100.5/VELARDE Albuterol (Proventil) 2.5 mg IH Q4HRT PRN PRN Reason: Shortness Of Breath Apixaban (Eliquis) 5 mg PO Q12HR [facility]; Protocol Last Admin: 11/12/17 22:27 Dose: 5 mg Epoetin Harshal (Epogen) 20,000 unit IV KATHRYN PRN PRN Reason: hemodialysis Furosemide (Lasix) 40 mg IV BID@0600,1800 [facility] Last Admin: 11/13/17 06:16 Dose: 40 mg Hydralazine HCl (Apresoline) 50 mg PO Q8HR [facility] Last Admin: 11/13/17 06:16 Dose: 50 mg Sodium Chloride (Nacl 0.9%) 100 mls @ 999 mls/hr IV KATHRYN PRN PRN Reason: Hypotension Ampicillin Sodium (Polycillin/Ns 2 Gm/100 Ml) 2 gm in 100 mls @ 100 mls/hr IV Q24HR@1800 EZRA Labetalol HCl (Normodyne) 300 mg PO TID [facility] Last Admin: 11/12/17 22:25 Dose: 300 mg Nifedipine (Procardia Xl) 60 mg PO Q12HR [facility] Last Admin: 11/12/17 22:25 Dose: 60 mg Nortriptyline HCl (Pamelor) 25 mg PO QHS [facility] Last Admin: 11/12/17 22:28 Dose: 25 mg Ondansetron HCl (Zofran) 4 mg IV Q8H PRN PRN Reason: Nausea And Vomiting Pantoprazole Sodium (Protonix) 40 mg PO BID [facility] Last Admin: 11/12/17 22:25 Dose: 40 mg Peritoneal Dialysis Solution (Dianeal Low Calcium W/2.5% Dextrose) 2,000 ml IP Q6HR [facility] Sodium Chloride (Sodium Chloride Flush Syringe 10 Ml) 10 ml IV BID [facility] Last Admin: 11/12/17 22:26 Dose: 10 ml Sodium Chloride (Sodium Chloride Flush Syringe 10 Ml) 10 ml IV PRN PRN PRN Reason: LINE FLUSH Last Admin: 11/11/17 14:49 Dose: 10 ml Valsartan (Diovan) 320 mg PO QDAY [facility] Last Admin: 11/12/17 09:58 Dose: 320 mg Physical Examination - Physical Exam Narrative exam: General appearance: Alert in NAD, conversant Eyes: anicteric sclerae, moist conjunctivae; no lid-lag; PERRLA HENT: Atraumatic; oropharynx clear. Neck: Trachea midline; supple, no thyromegaly or lymphadenopathy Lungs: CTA, with normal respiratory effort and no intercostal retractions CV: RRR, no murmurs Abdomen: Soft, non-tender; +PD cath exit no erthema, drainage Extremities: No peripheral edema or extremity lymphadenopathy Skin: Normal temperature, turgor and texture; no rash, ulcers or subcutaneous nodules Psych: Appropriate affect, alert and oriented to person, place and time. Neuro: alert and oriented x 3. Moving all extermities Lines: No CVL / PICC - Constitutional Vitals: Vital Signs Temp Pulse Resp BP Pulse Ox 97.7 F 87 22 142/88 97 11/13/17 07:35 11/13/17 07:35 11/13/17 07:35 11/13/17 07:35 11/13/17 07:35 Temperature -Last 24 Hours Temperature 97.7 F Temperature 98.2 F Temperature 98.3 F Results - Labs CBC & Chem 7: 11/11/17 11:06 11/12/17 11:42 Labs: Abnormal lab results 11/12/17 Range/Units 11:42 BUN 42 H (9-20) mg/dL Creatinine 11.3 H (0.8-1.5) mg/dL Calcium 6.8 L (8.4-10.2) mg/dL Assessment and Plan Assessment: 1) SIRS: Present on admission, manifested by tachycardia, tachypnea. Etiology most likely severe anemia. I doubt infectious etiology. 2) Diphtheroids in peritoneal fluid: I doubt peritoneal catheter associated peritonitis. Patient denies any abdominal pain, peritoneal effluent was not cloudy and white blood cell was less than a monitor. Diphtheroid may represent contamination. 3) ESRD on home peritoneal dialysis. Peritoneal catheter was placed in May 2017. After placement he had a peritoneal catheter associated infection.\ 4) Hypertension 5) Diabetes 6) Afib 7) Asthma. 8) Non-compliant with Peritoneal Dialysis -had a left AVF in anticipation for switching to hemodialysis Plan: -stop ampicillin -monitor off antibiotics -At some point, PD-catheter should be removed in view of patient being switched to HD Thank you for your consultation, will follow up with you. Regine Oh MD Infectious Diseases Specialist [facility] M [phone] O [phone]
[2017-11-13] MEDS: ELIQUIS PO SCH (11:42)
[2017-11-13] MEDS: PROTONIX PO SCH (11:42)
[2017-11-13] MEDS: DIOVAN PO SCH (11:44)
[2017-11-13] MEDS: SODIUM CHLORIDE FLUSH SYRINGE 10 ML IV SCH (11:48)
[2017-11-13] MEDS: PROCARDIA XL PO SCH (11:48)
[2017-11-13] MEDS ORDERED: DIANEAL LOW CALCIUM W/2.5% DEXTROSE IP SCH (12:00)
--- NOTE | 2017-11-13 13:43 | Progress Note ---
Assessment and Plan Heart failure with preserved ejection fraction s/t poor compliance with dialysis and severe uncontrolled hypertension. EF 50-55% on echocardiogram this admission. Severe anemia s/p transfusion of PRBCs ESRD noncompliant with PD. Currently on HD. Hypertensive urgency on procardia XL and valsartan Obese Hx of paroxysmal afib/flutter currently in sinus rhythm now considered not an optimal candidate for oral anticoagulation due to progressive anemia. Nonspecific elevated troponin No ischemia on MPI 01/2015. Subjective Date of service: 11/13/17 Principal diagnosis: ESRD Interval history: Patient seen in dialysis. He has no complaints. Objective Vital Signs Temp Pulse Pulse Resp BP Pulse Ox 11/13/17 13:30 80 203/110 11/13/17 13:15 83 182/94 11/13/17 13:00 83 182/94 11/13/17 12:55 84 177/86 11/13/17 11:44 87 142/88 11/13/17 07:35 97.7 F 87 22 142/88 97 11/13/17 06:16 83 143/75 11/13/17 00:29 98.2 F 81 20 138/72 95 11/12/17 22:26 80 158/94 11/12/17 22:25 80 158/94 11/12/17 22:00 80 16 11/12/17 20:42 95 11/12/17 16:42 98.3 F 20 130/76 11/12/17 14:13 84 11/12/17 14:11 171/91 - Physical Examination General: No Apparent Distress HEENT: Positive: PERRL Cardiac: Positive: Reg Rate and Rhythm Neuro: Positive: Grossly Intact
--- NOTE | 2017-11-13 15:01 | Discharge Summary ---
Providers - Providers Date of Admission: 11/09/17 13:00 Attending physician: EDITH GUILLEN MD 11/09/17 11:12 Consult to Physician [CONS] Urgent Comment: Consulting Provider: KASEY GARSIA Physician Instructions: Reason For Exam: esrd, peritoneal dialysis, htn 11/10/17 11:44 Consult to Dietitian/Nutrition [CONS] Routine Physician Instructions: Reason For Exam: Reason for Consult: Malnutrition 11/10/17 12:21 Consult to Physician [CONS] Routine Comment: Consulting Provider: LEON ROE Physician Instructions: Reason For Exam: Elevated troponin 11/11/17 12:19 Consult to Physician [CONS] Routine Comment: Consulting Provider: ELIF SINGLETON Physician Instructions: Reason For Exam: gram pos rods in peritoneal fluid Primary care physician: PATTERNMAKER WOOD Hospitalization Condition: Stable Hospital course: 32 YO Male with ESRD on PD, MO,HTN, DM, OA, Asthma, A Fib, Optic Neuritis presents to ED for evaluation. Pt states that he has experienced multiple episodes of nausea, vomiting, and weight gain for the last 3 weeks with worsening symptoms over the past 4 days Diastolic CHF Afterload reduction, diuresis, monitor uop q shift, supplemental oxygen, Strict I/O, Daily weight, monitor BP q shift. Morbid obesity Balanced diet, increased physical activity at discharge Hypertensive urgency Amlodipine and lisinopril DC'd, valsartan and nifedipine initiated continue labetalol along with hydralazine scheduled and prn Atrial fibrillation Patient has a history of noncompliance with eliquis as outpatient, counseled about improved compliance -poor candidate for kevin given anemia, cardiology input appreciated rate is controlled with BB ESRD who became profoundly uremic on PD due to non compliance started on HD, improved needs HD chairtime prior to dc Anemia of chronic disease 2 units PRBC transfused with HD, Epogen with HD DVT prophylaxis SCDs Disposition: DC-01 TO HOME OR SELFCARE Time spent for discharge: 33 minutes Core Measure Documentation - Palliative Care Palliative Care/ Comfort Measures: Not Applicable - Core Measures Any of the following diagnoses?: none Exam - Constitutional Vitals: Temp Pulse Resp BP Pulse Ox 97.7 F 83 22 188/96 97 11/13/17 12:35 11/13/17 14:30 11/13/17 12:35 11/13/17 14:30 11/13/17 07:35 General appearance: Present: no acute distress, well-nourished - EENT Eyes: Present: PERRL ENT: hearing intact, clear oral mucosa - Neck Neck: Present: supple, normal ROM - Respiratory Respiratory effort: normal Respiratory: bilateral: CTA - Cardiovascular Heart Sounds: Present: S1 & S2. Absent: rub, click - Extremities Extremities: pulses symmetrical, No edema Peripheral Pulses: within normal limits - Abdominal General gastrointestinal: Present: soft, non-tender, non-distended, normal bowel sounds Male genitourinary: Present: normal - Integumentary Integumentary: Present: clear, warm, dry - Musculoskeletal Musculoskeletal: gait normal, strength equal bilaterally - Psychiatric Psychiatric: appropriate mood/affect, intact judgment & insight - Neurologic Neurologic: CNII-XII intact, moves all extremities Plan Follow up with: PRIMARY CARE, [Primary Care Provider] - 7 Days Prescriptions: Metoprolol [Lopressor TAB] 25 mg PO Q8HR #90 tablet NIFEdipine XL [Procardia Xl] 60 mg PO Q12HR #60 tablet Valsartan [Diovan] 320 mg PO QDAY #60 tablet
[2017-11-13] MEDS ORDERED: APRESOLINE IV ONE (17:33)
[2017-11-13] MEDS: NORMODYNE PO SCH (17:47)
[2017-11-13 17:48] VITALS: BP 158/88
[2017-11-13] MEDS ORDERED: POLYCILLIN/NS 2 GM/100 ML 2 GM/100 ML BAG IV SCH (18:00)
[2017-11-13] MEDS ORDERED: AMPICILLIN/NS 1 GM/50 ML 1 GM/50 ML BAG IV SCH (20:00)
[2017-11-13] MEDS ORDERED: NACL 0.9 (PRIMING MACHINE ONLY DIALYSIS) MC ONE (20:02)
[2017-11-13] MEDS ORDERED: LOPRESSOR PO SCH (22:00)
== END 2017-11-13 18:00 | disposition home or self-care (01) | DRG 291 ==
LOC: ED 08:37 → 3A 13:00
PROVIDERS: ADMIT Internal Medicine; ATTEND Internal Medicine
PROC: 5A1D70Z Performance of Urinary Filtration, Intermittent, Less than 6 Hours Per Day (ICD-10-PCS; 2017-11-09)
PROC: 30233N1 Transfusion of Nonautologous Red Blood Cells into Peripheral Vein, Percutaneous Approach (ICD-10-PCS; principal; 2017-11-10)
PROC: 5A1D70Z Performance of Urinary Filtration, Intermittent, Less than 6 Hours Per Day (ICD-10-PCS; 2017-11-10)
PROC: 5A1D70Z Performance of Urinary Filtration, Intermittent, Less than 6 Hours Per Day (ICD-10-PCS; 2017-11-11)
PROC: 5A1D70Z Performance of Urinary Filtration, Intermittent, Less than 6 Hours Per Day (ICD-10-PCS; 2017-11-13)
DX: I13.2 Hypertensive heart and chronic kidney disease with heart failure and with stage 5 chronic kidney disease, or end stage renal disease (principal); N18.6 End stage renal disease; I50.33 Acute on chronic diastolic (congestive) heart failure; Z68.41 Body mass index [BMI] 40.0-44.9, adult; R65.10 Systemic inflammatory response syndrome (SIRS) of non-infectious origin without acute organ dysfunction; H46.9 Unspecified optic neuritis; I48.91 Unspecified atrial fibrillation; I16.0 Hypertensive urgency; E66.01 Morbid (severe) obesity due to excess calories; E11.22 Type 2 diabetes mellitus with diabetic chronic kidney disease; D63.8 Anemia in other chronic diseases classified elsewhere; M19.90 Unspecified osteoarthritis, unspecified site; Z91.19 Patient's noncompliance with other medical treatment and regimen; Z79.899 Other long term (current) drug therapy; Z83.3 Family history of diabetes mellitus; Z82.49 Family history of ischemic heart disease and other diseases of the circulatory system
CPT/HCPCS: 36415; 36430; 71046; 80048; 80053; 80061; 80074; 82271; 83735; 83880; 83970; 84100; 84484; 85025; 86850; 86900; 86901; 86920; 87116; 89051; 93005; 93010; 93306; J0290; J0360; J1940; J3475; J7030; P9016

== ENCOUNTER 2017-11-20 13:42 | Emergency (ER) | payer MEDICARE ==
[2017-11-20 14:23] VITALS: BP 209/146
== END 2017-11-20 15:01 | disposition left against medical advice (07) ==
LOC: ED 13:42
DX: J45.909 Unspecified asthma, uncomplicated (principal); M19.90 Unspecified osteoarthritis, unspecified site; E11.22 Type 2 diabetes mellitus with diabetic chronic kidney disease; I13.0 Hypertensive heart and chronic kidney disease with heart failure and stage 1 through stage 4 chronic kidney disease, or unspecified chronic kidney disease; N18.4 Chronic kidney disease, stage 4 (severe); I50.9 Heart failure, unspecified; Z99.2 Dependence on renal dialysis; Z76.0 Encounter for issue of repeat prescription; Z53.21 Procedure and treatment not carried out due to patient leaving prior to being seen by health care provider

== ENCOUNTER 2018-03-16 21:40 | Emergency (ER) | payer MEDICARE ==
[2018-03-16 21:46] VITALS: BP 216/138
[2018-03-17 00:01] LABS: Basophils # (Auto) 0.1 K/mm3 (0.0-0.1); Basophils % (Auto) 1.4 % (0.0-1.8); Eosinophils # (Auto) 0.5 K/mm3 (0.0-0.4); Eosinophils % (Auto) 6.9 % (0.0-4.3); Hematocrit 25.6 % (35.5-45.6); Hemoglobin 8.6 gm/dl (11.8-15.2); Lymphocytes # (Auto) 1.1 K/mm3 (1.2-5.4); Lymphocytes % (Auto) 15.5 % (13.4-35.0); Mean Corpuscular HGB Conc 34 % (32-34); Mean Corpuscular Hemoglobin 29 pg (28-32); Mean Corpuscular Volume 87 fl (84-94); Monocytes # (Auto) 1.1 K/mm3 (0.0-0.8); Platelet Count 258 K/mm3 (140-440); Red Blood Count 2.96 M/mm3 (3.65-5.03); Red Cell Distribution Width 18.2 % (13.2-15.2)
[2018-03-17] MEDS ORDERED: MORPHINE IV ONE (01:10)
[2018-03-17] MEDS ORDERED: ZOFRAN IV ONE (01:11)
--- NOTE | 2018-03-17 02:01 | Emergency Department Report ---
ED General Adult HPI - General Chief complaint: Extremity Injury, Lower Stated complaint: GOUT Time Seen by Provider: 03/17/18 00:56 Source: patient Mode of arrival: Ambulatory Limitations: No Limitations - History of Present Illness Initial comments: Patient presents to the emergency department with exacerbation of gout of his right great toe. Patient states that he had an attack of gout about a month ago which was improved with medications given in the ED. Patient denies any calf pain, fever, or trauma to that area. Patient has no other complaints -: Gradual Location: lower extremity Radiation: non-radiation Severity scale (0 -10): 6 Quality: sharp Consistency: constant Improves with: rest Worsens with: movement Associated Symptoms: denies other symptoms Treatments Prior to Arrival: none - Related Data Previous Rx's Medication Instructions Recorded Last Taken Type Nortriptyline [Pamelor] 25 mg PO QHS #30 capsule 01/16/17 2 Weeks Ago Rx ~10/26/17 Furosemide [Lasix TAB] 40 mg PO QDAY #30 tablet 03/09/17 2 Weeks Ago Rx ~10/26/17 Labetalol [Normodyne TAB] 300 mg PO TID #90 tablet 07/01/17 2 Weeks Ago Rx ~10/26/17 Pantoprazole [Protonix TAB] 40 mg PO BID #60 tablet 07/01/17 2 Weeks Ago Rx ~10/26/17 hydrALAZINE [Apresoline TAB] 50 mg PO Q8HR #90 tablet 07/01/17 2 Weeks Ago Rx ~10/26/17 Metoprolol [Lopressor TAB] 25 mg PO Q8HR #90 tablet 11/13/17 Unknown Rx NIFEdipine XL [Procardia Xl] 60 mg PO Q12HR #60 tablet 11/13/17 Unknown Rx Valsartan [Diovan] 320 mg PO QDAY #60 tablet 11/13/17 Unknown Rx HYDROcodone/APAP 7.5-325 [[place] 1 each PO Q6HR PRN #12 tablet 03/17/18 Unknown Rx 7.5/325] Indomethacin [Indocin] 50 mg RC TID #15 supp.rect 03/17/18 Unknown Rx Prednisone 50 mg PO DAILY #5 tablet 03/17/18 Unknown Rx Allergies Allergy/AdvReac Type Severity Reaction Status Date / Time No Known Allergies Allergy Verified 08/12/13 02:52 ED Review of Systems ROS: Stated complaint: GOUT Other details as noted in HPI Constitutional: denies: chills, fever Eyes: denies: eye pain, eye discharge, vision change ENT: denies: ear pain, throat pain Respiratory: denies: cough, shortness of breath, wheezing Cardiovascular: denies: chest pain, palpitations Endocrine: no symptoms reported Gastrointestinal: denies: abdominal pain, nausea, diarrhea Genitourinary: denies: urgency, dysuria Musculoskeletal: other (toe pain). denies: back pain, joint swelling, arthralgia Skin: denies: rash, lesions Neurological: denies: headache, weakness, paresthesias Psychiatric: denies: anxiety, depression Hematological/Lymphatic: denies: easy bleeding, easy bruising ED Past Medical Hx - Past Medical History Previous Medical History?: Yes Hx Hypertension: Yes Hx Congestive Heart Failure: Yes Hx Diabetes: Yes Hx Renal Disease: Yes (CKD STAGE 4, peritoneal dialysis) Hx Arthritis: Yes Hx Asthma: Yes Hx COPD: No Hx HIV: No Additional medical history: optic neuritis, AFIB - Surgical History Past Surgical History?: Yes Additional Surgical History: Recently diagnosed with optic neuritis, peritoneal dialysis - Social History Smoking Status: Unknown if ever smoked Substance Use Type: None - Medications Home Medications: Home Medications Medication Instructions Recorded Confirmed Last Taken Type Nortriptyline [Pamelor] 25 mg PO QHS #30 capsule 01/16/17 11/09/17 2 Weeks Ago Rx ~10/26/17 Furosemide [Lasix TAB] 40 mg PO QDAY #30 tablet 03/09/17 11/09/17 2 Weeks Ago Rx ~10/26/17 Labetalol [Normodyne TAB] 300 mg PO TID #90 tablet 07/01/17 11/09/17 2 Weeks Ago Rx ~10/26/17 Pantoprazole [Protonix TAB] 40 mg PO BID #60 tablet 07/01/17 11/09/17 2 Weeks Ago Rx ~10/26/17 hydrALAZINE [Apresoline TAB] 50 mg PO Q8HR #90 tablet 07/01/17 11/09/17 2 Weeks Ago Rx ~10/26/17 Metoprolol [Lopressor TAB] 25 mg PO Q8HR #90 tablet 11/13/17 Unknown Rx NIFEdipine XL [Procardia Xl] 60 mg PO Q12HR #60 tablet 11/13/17 Unknown Rx Valsartan [Diovan] 320 mg PO QDAY #60 tablet 11/13/17 Unknown Rx HYDROcodone/APAP 7.5-325 [[place] 1 each PO Q6HR PRN #12 tablet 03/17/18 Unknown Rx 7.5/325] Indomethacin [Indocin] 50 mg RC TID #15 supp.rect 03/17/18 Unknown Rx Prednisone 50 mg PO DAILY #5 tablet 03/17/18 Unknown Rx ED Physical Exam - General Limitations: No Limitations General appearance: alert, in no apparent distress - Head Head exam: Present: atraumatic, normocephalic - Eye Eye exam: Present: normal appearance - ENT ENT exam: Present: mucous membranes moist - Neck Neck exam: Present: normal inspection - Respiratory Respiratory exam: Present: normal lung sounds bilaterally. Absent: respiratory distress, wheezes, rales - Cardiovascular Cardiovascular Exam: Present: regular rate, normal rhythm. Absent: systolic murmur, diastolic murmur, rubs, gallop - GI/Abdominal GI/Abdominal exam: Present: soft, normal bowel sounds. Absent: distended, tenderness - Rectal Rectal exam: Present: deferred - Extremities Exam Extremities exam: Present: other (right great toe is inflamed and erythematous and severely tender to touch) - Back Exam Back exam: Present: normal inspection - Neurological Exam Neurological exam: Present: alert, oriented X3, CN II-XII intact. Absent: motor sensory deficit - Psychiatric Psychiatric exam: Present: normal affect, normal mood - Skin Skin exam: Present: warm, dry, intact, normal color. Absent: rash ED Course Vital Signs 03/16/18 03/16/18 21:38 23:17 Temperature 97.4 F L 97.4 F L Pulse Rate 89 96 H Respiratory 18 18 Rate Blood Pressure 216/138 216/138 O2 Sat by Pulse 98 96 Oximetry ED Medical Decision Making - Lab Data Result diagrams: 03/16/18 23:35 - Medical Decision Making Discussed results with patient Patient received IV steroids and pain medicine Critical care attestation.: If time is entered above; I have spent that time in minutes in the direct care of this critically ill patient, excluding procedure time. ED Disposition Clinical Impression: Gout attack Disposition: DC- TO HOME OR SELFCARE Is pt being admited?: No Does the pt Need Aspirin: No Condition: Stable Instructions: Acute Gouty Arthritis (ED) Additional Instructions: return if worse Prescriptions: HYDROcodone/APAP 7.5-325 [[place] 7.5/325] 1 each PO Q6HR PRN #12 tablet PRN Reason: Pain Indomethacin [Indocin] 50 mg RC TID #15 supp.rect Prednisone 50 mg PO DAILY #5 tablet Referrals: PRIMARY CAREMD [Primary Care Provider] - 3-5 Days [facility] [Outside] - 3-5 Days [facility] [Outside] - 3-5 Days ROLF POE MD [Staff Physician] - 3-5 Days Time of Disposition: 02:01
== END 2018-03-17 02:11 | disposition home or self-care (01) ==
LOC: ED 21:40
DX: M10.9 Gout, unspecified (principal); I12.9 Hypertensive chronic kidney disease with stage 1 through stage 4 chronic kidney disease, or unspecified chronic kidney disease; E11.22 Type 2 diabetes mellitus with diabetic chronic kidney disease; N18.4 Chronic kidney disease, stage 4 (severe); M19.90 Unspecified osteoarthritis, unspecified site; I50.9 Heart failure, unspecified; J45.909 Unspecified asthma, uncomplicated; Z99.2 Dependence on renal dialysis
CPT/HCPCS: 36415; 84550; 85025; 96374; 96375; 99283; J2270; J2405; J2930

== ENCOUNTER 2018-04-10 22:29 | Emergency (ER) | payer MEDICARE ==
[2018-04-10 23:56] LABS: Calcium 6.9 mg/dL (8.4-10.2)
[2018-04-11 00:17] LABS: Basophils # (Auto) 0.1 K/mm3 (0.0-0.1); Basophils % (Auto) 0.4 % (0.0-1.8); Eosinophils # (Auto) 0.1 K/mm3 (0.0-0.4); Eosinophils % (Auto) 0.6 % (0.0-4.3); Hematocrit 22.8 % (35.5-45.6); Hemoglobin 7.8 gm/dl (11.8-15.2); Lymphocytes # (Auto) 0.8 K/mm3 (1.2-5.4); Lymphocytes % (Auto) 4.5 % (13.4-35.0); Mean Corpuscular HGB Conc 34 % (32-34); Mean Corpuscular Hemoglobin 30 pg (28-32); Mean Corpuscular Volume 87 fl (84-94); Monocytes % (Auto) 5.9 % (0.0-7.3); Platelet Count 268 K/mm3 (140-440); Red Blood Count 2.62 M/mm3 (3.65-5.03); Red Cell Distribution Width 16.7 % (13.2-15.2)
[2018-04-11] MEDS ORDERED: NORCO 7.5/325 PO ONE (02:15)
[2018-04-11] MEDS ORDERED: KIONEX PO ONE (02:16)
[2018-04-11] MEDS ORDERED: HumuLIN R IV ONE (02:16)
[2018-04-11] MEDS ORDERED: D50W (25GM) Syringe IV ONE (02:16)
[2018-04-11] MEDS ORDERED: COLCHICINE PO ONE (02:16)
[2018-04-11] MEDS ORDERED: CATAPRES PO ONE (02:20)
[2018-04-11] MEDS ORDERED: DECADRON IV ONE (02:46)
--- NOTE | 2018-04-11 03:28 | Emergency Department Report ---
ED General Adult HPI - General Chief complaint: Extremity Injury, Lower Stated complaint: GOUT Time Seen by Provider: 04/11/18 02:09 Source: patient Mode of arrival: Ambulatory Limitations: No Limitations - History of Present Illness Initial comments: Patient is a 32-year-old Female past history end-stage renal disease who is on peritoneal dialysis who is presenting with 2 days of left lower leg pain. Patient has a history of gout in his right of his colchicine and when he ran out and now has some distal left anterior arshad redness and swelling that he states is consistent with the way his gout flares. Patient states it occurs in the distal arshad first and then moves to the ankle and great toe. Patient denies any fevers chills nausea vomiting at this time. - Related Data Previous Rx's Medication Instructions Recorded Last Taken Type Nortriptyline [Pamelor] 25 mg PO QHS #30 capsule 01/16/17 2 Weeks Ago Rx ~10/26/17 Furosemide [Lasix TAB] 40 mg PO QDAY #30 tablet 03/09/17 2 Weeks Ago Rx ~10/26/17 Labetalol [Normodyne TAB] 300 mg PO TID #90 tablet 07/01/17 2 Weeks Ago Rx ~10/26/17 Pantoprazole [Protonix TAB] 40 mg PO BID #60 tablet 07/01/17 2 Weeks Ago Rx ~10/26/17 hydrALAZINE [Apresoline TAB] 50 mg PO Q8HR #90 tablet 07/01/17 2 Weeks Ago Rx ~10/26/17 Metoprolol [Lopressor TAB] 25 mg PO Q8HR #90 tablet 11/13/17 Unknown Rx NIFEdipine XL [Procardia Xl] 60 mg PO Q12HR #60 tablet 11/13/17 Unknown Rx Valsartan [Diovan] 320 mg PO QDAY #60 tablet 11/13/17 Unknown Rx HYDROcodone/APAP 7.5-325 [[place] 1 each PO Q6HR PRN #12 tablet 03/17/18 Unknown Rx 7.5/325] Indomethacin [Indocin] 50 mg RC TID #15 supp.rect 03/17/18 Unknown Rx predniSONE [Prednisone] 50 mg PO DAILY #5 tablet 03/17/18 Unknown Rx Clindamycin [Clindamycin CAP] 300 mg PO Q8H 7 Days cap 04/11/18 Unknown Rx Colchicine 0.6 mg PO DAILY #20 capsule 04/11/18 Unknown Rx HYDROcodone/APAP 5-325 [[place] 1 each PO Q6HR PRN #12 tablet 04/11/18 Unknown Rx 5/325] Indomethacin [Indocin] 25 mg PO Q8H #14 capsule 04/11/18 Unknown Rx Allergies Allergy/AdvReac Type Severity Reaction Status Date / Time No Known Allergies Allergy Verified 08/12/13 02:52 ED Review of Systems ROS: Stated complaint: GOUT Other details as noted in HPI Comment: All other systems reviewed and negative ED Past Medical Hx - Past Medical History Hx Hypertension: Yes Hx Congestive Heart Failure: Yes Hx Diabetes: Yes Hx Renal Disease: Yes (CKD STAGE 4, peritoneal dialysis) Hx Arthritis: Yes Hx Asthma: Yes Hx COPD: No Hx HIV: No Additional medical history: optic neuritis, AFIB - Surgical History Additional Surgical History: Recently diagnosed with optic neuritis, peritoneal dialysis - Social History Smoking Status: Never Smoker Substance Use Type: None - Medications Home Medications: Home Medications Medication Instructions Recorded Confirmed Last Taken Type Nortriptyline [Pamelor] 25 mg PO QHS #30 capsule 01/16/17 11/09/17 2 Weeks Ago Rx ~10/26/17 Furosemide [Lasix TAB] 40 mg PO QDAY #30 tablet 03/09/17 11/09/17 2 Weeks Ago Rx ~10/26/17 Labetalol [Normodyne TAB] 300 mg PO TID #90 tablet 07/01/17 11/09/17 2 Weeks Ago Rx ~10/26/17 Pantoprazole [Protonix TAB] 40 mg PO BID #60 tablet 07/01/17 11/09/17 2 Weeks Ago Rx ~10/26/17 hydrALAZINE [Apresoline TAB] 50 mg PO Q8HR #90 tablet 07/01/17 11/09/17 2 Weeks Ago Rx ~10/26/17 Metoprolol [Lopressor TAB] 25 mg PO Q8HR #90 tablet 11/13/17 Unknown Rx NIFEdipine XL [Procardia Xl] 60 mg PO Q12HR #60 tablet 11/13/17 Unknown Rx Valsartan [Diovan] 320 mg PO QDAY #60 tablet 11/13/17 Unknown Rx HYDROcodone/APAP 7.5-325 [[place] 1 each PO Q6HR PRN #12 tablet 03/17/18 Unknown Rx 7.5/325] Indomethacin [Indocin] 50 mg RC TID #15 supp.rect 03/17/18 Unknown Rx predniSONE [Prednisone] 50 mg PO DAILY #5 tablet 03/17/18 Unknown Rx Clindamycin [Clindamycin CAP] 300 mg PO Q8H 7 Days cap 04/11/18 Unknown Rx Colchicine 0.6 mg PO DAILY #20 capsule 04/11/18 Unknown Rx HYDROcodone/APAP 5-325 [[place] 1 each PO Q6HR PRN #12 tablet 04/11/18 Unknown Rx 5/325] Indomethacin [Indocin] 25 mg PO Q8H #14 capsule 04/11/18 Unknown Rx ED Physical Exam - General Limitations: No Limitations General appearance: alert, in no apparent distress - Head Head exam: Present: atraumatic, normocephalic - Eye Eye exam: Present: normal appearance - ENT ENT exam: Present: mucous membranes moist - Neck Neck exam: Present: normal inspection - Respiratory Respiratory exam: Present: normal lung sounds bilaterally. Absent: respiratory distress, wheezes, rales, rhonchi - Cardiovascular Cardiovascular Exam: Present: regular rate, normal rhythm. Absent: systolic murmur, diastolic murmur, rubs, gallop - GI/Abdominal GI/Abdominal exam: Present: soft, normal bowel sounds. Absent: distended, tenderness, guarding - Rectal Rectal exam: Present: deferred - Extremities Exam Extremities exam: Present: normal inspection, other (patient has bilateral lower extremity edema is 3+. Patient also has some erythema and warmth to the distal anterior left arshad extending to the anterior left ankle. The actual ankle joint does not appear to be affected.) - Back Exam Back exam: Present: normal inspection - Neurological Exam Neurological exam: Present: alert, oriented X3 - Psychiatric Psychiatric exam: Present: normal affect, normal mood - Skin Skin exam: Present: warm, dry, intact, normal color. Absent: rash ED Course Vital Signs 04/10/18 23:18 Temperature 98.6 F Pulse Rate 95 H Respiratory 18 Rate Blood Pressure 184/102 O2 Sat by Pulse 97 Oximetry ED Medical Decision Making - Lab Data Result diagrams: 04/10/18 23:31 04/10/18 23:31 Lab Results 04/10/18 04/10/18 Range/Units 23:31 23:31 WBC 17.5 H (4.5-11.0) K/mm3 RBC 2.62 L (3.65-5.03) M/mm3 Hgb 7.8 L (11.8-15.2) gm/dl Hct 22.8 L (35.5-45.6) % MCV 87 (84-94) fl MCH 30 (28-32) pg MCHC 34 (32-34) % RDW 16.7 H (13.2-15.2) % Plt Count 268 (140-440) K/mm3 Lymph % (Auto) 4.5 L (13.4-35.0) % [place] % (Auto) 5.9 (0.0-7.3) % Eos % (Auto) 0.6 (0.0-4.3) % Baso % (Auto) 0.4 (0.0-1.8) % Lymph # 0.8 L (1.2-5.4) K/mm3 [place] # 1.0 H (0.0-0.8) K/mm3 Eos # 0.1 (0.0-0.4) K/mm3 Baso # 0.1 (0.0-0.1) K/mm3 Seg Neutrophils % 88.6 H (40.0-70.0) % Seg Neutrophils # 15.5 H (1.8-7.7) K/mm3 Sodium 140 (137-145) mmol/L Potassium 5.8 H (3.6-5.0) mmol/L Chloride 93.3 L (98-107) mmol/L Carbon Dioxide 21 L (22-30) mmol/L Anion Gap 32 mmol/L BUN 114 H (9-20) mg/dL Creatinine 19.0 H (0.8-1.5) mg/dL Estimated GFR 4 ml/min BUN/Creatinine Ratio 6 % Glucose 117 H (75-100) mg/dL Calcium 6.9 L (8.4-10.2) mg/dL - Medical Decision Making Patient states his symptoms are consistent with gouty flareups that the patient has had the past. Patient will be started on colchicine however because of the elevated white count atypical presentation for gout antibiotics will be started as well. Patient is noted to have a worsening renal function. Patient states that he did not do his peritoneal dialysis yesterday. Patient's BUN creatinine was 114 and 19 and his creatinine last month was evaluated and dizziness today. Patient's potassium of 5.8. Patient was given insulin D50 and Kayexalate for a elevated potassium. I did speak with Dr. Angelo who is covering for Dr. Russell who is the patient's janitorial cleaner. The patient was offered admission to monitor his potassium and also have his janitorial cleaner see him. His janitorial cleaner Dr. Angelo states he thinks this would be the breast of thing for the patient with the patient is adamant that he wants to leave and will sign out AGAINST MEDICAL ADVICE. Patient was monitored to ensure that he does not become hypoglycemic after the insulin shot will be discharged afterwards. Critical care attestation.: If time is entered above; I have spent that time in minutes in the direct care of this critically ill patient, excluding procedure time. ED Disposition Clinical Impression: Hyperkalemia, Anemia in ESRD (end-stage renal disease), Hypertensive CKD, ESRD on dialysis, Morbid obesity with BMI of 40.0-44.9, adult Gout Qualifiers: Gout site: ankle Gout etiology: unspecified cause Chronicity: acute Laterality : left Qualified Code(s): M10.9 - Gout, unspecified Cellulitis Qualifiers: Site of cellulitis: extremity Site of cellulitis of extremity: lower extremity Laterality: left Qualified Code(s): L03.116 - Cellulitis of left lower limb Disposition: DC LEFT AGAINST MED ADVICE Is pt being admited?: No Does the pt Need Aspirin: No Condition: Stable Referrals: PRIMARY CARE, [Primary Care Provider] - 3-5 Days Time of Disposition: 03:30
[2018-04-11 06:49] VITALS: BP 123/48
== END 2018-04-11 06:49 | disposition left against medical advice (07) ==
LOC: ED 22:29
DX: I13.0 Hypertensive heart and chronic kidney disease with heart failure and stage 1 through stage 4 chronic kidney disease, or unspecified chronic kidney disease (principal); E11.22 Type 2 diabetes mellitus with diabetic chronic kidney disease; N18.6 End stage renal disease; I50.9 Heart failure, unspecified; D63.1 Anemia in chronic kidney disease; M10.072 Idiopathic gout, left ankle and foot; L03.116 Cellulitis of left lower limb; E66.01 Morbid (severe) obesity due to excess calories; E87.5 Hyperkalemia; M19.90 Unspecified osteoarthritis, unspecified site; J45.909 Unspecified asthma, uncomplicated; Z99.2 Dependence on renal dialysis; Z68.41 Body mass index [BMI] 40.0-44.9, adult
CPT/HCPCS: 36415; 80048; 85025; 96374; 96375; 99283; J1815

== ENCOUNTER 2018-05-12 01:37 | Emergency (ER) | payer MEDICARE ==
[2018-05-12] MEDS ORDERED: TORADOL IM ONE (05:49)
[2018-05-12] MEDS ORDERED: DECADRON IV ONE (05:49)
--- NOTE | 2018-05-12 05:53 | Emergency Department Report ---
ED Extremity Problem HPI - General Chief complaint: Extremity Injury, Lower Stated complaint: LT KNEE PAIN Time Seen by Provider: 05/12/18 05:48 Source: patient, RN notes reviewed, old records reviewed Mode of arrival: Ambulatory Limitations: No Limitations - History of Present Illness Initial comments: 32-year-old [place] male with a significant past medical history of CK D stage IV. Tibial dialysis, optic neuritis, A. fib, arthritis, asthma, congestive heart failure, diabetes comes in with left knee pain gout 2 days. Patient has not taken any pain medication. MD Complaint: joint swelling, joint paint -: days(s) (2) Location: left History of Same: Yes -: Yes arthralgia Severity scale (0 -10): 7 Quality: aching Consistency: intermittent Improves with: nothing Worsens with: weight bearing, walking - Related Data Previous Rx's Medication Instructions Recorded Last Taken Type Nortriptyline [Pamelor] 25 mg PO QHS #30 capsule 01/16/17 2 Weeks Ago Rx ~10/26/17 Furosemide [Lasix TAB] 40 mg PO QDAY #30 tablet 03/09/17 2 Weeks Ago Rx ~10/26/17 Labetalol [Normodyne TAB] 300 mg PO TID #90 tablet 07/01/17 2 Weeks Ago Rx ~10/26/17 Pantoprazole [Protonix TAB] 40 mg PO BID #60 tablet 07/01/17 2 Weeks Ago Rx ~10/26/17 hydrALAZINE [Apresoline TAB] 50 mg PO Q8HR #90 tablet 07/01/17 2 Weeks Ago Rx ~10/26/17 Metoprolol [Lopressor TAB] 25 mg PO Q8HR #90 tablet 11/13/17 Unknown Rx NIFEdipine XL [Procardia Xl] 60 mg PO Q12HR #60 tablet 11/13/17 Unknown Rx Valsartan [Diovan] 320 mg PO QDAY #60 tablet 11/13/17 Unknown Rx HYDROcodone/APAP 7.5-325 [[place] 1 each PO Q6HR PRN #12 tablet 03/17/18 Unknown Rx 7.5/325] Indomethacin [Indocin] 50 mg RC TID #15 supp.rect 03/17/18 Unknown Rx Clindamycin [Clindamycin CAP] 300 mg PO Q8H 7 Days cap 04/11/18 Unknown Rx Colchicine 0.6 mg PO DAILY #20 capsule 04/11/18 Unknown Rx HYDROcodone/APAP 5-325 [[place] 1 each PO Q6HR PRN #12 tablet 04/11/18 Unknown Rx 5/325] Indomethacin [Indocin] 25 mg PO Q8H #14 capsule 05/12/18 Unknown Rx predniSONE [Prednisone] 50 mg PO DAILY #5 tablet 05/12/18 Unknown Rx Allergies Allergy/AdvReac Type Severity Reaction Status Date / Time No Known Allergies Allergy Verified 08/12/13 02:52 ED Review of Systems ROS: Stated complaint: LT KNEE PAIN Other details as noted in HPI Comment: All other systems reviewed and negative ED Past Medical Hx - Past Medical History Previous Medical History?: Yes Hx Hypertension: Yes Hx Congestive Heart Failure: Yes Hx Diabetes: Yes Hx Renal Disease: Yes (CKD STAGE 4, peritoneal dialysis) Hx Arthritis: Yes Hx Asthma: Yes Hx COPD: No Hx HIV: No Additional medical history: optic neuritis, AFIB - Surgical History Past Surgical History?: Yes Additional Surgical History: Recently diagnosed with optic neuritis, peritoneal dialysis - Social History Smoking Status: Never Smoker Substance Use Type: None - Medications Home Medications: Home Medications Medication Instructions Recorded Confirmed Last Taken Type Nortriptyline [Pamelor] 25 mg PO QHS #30 capsule 01/16/17 11/09/17 2 Weeks Ago Rx ~10/26/17 Furosemide [Lasix TAB] 40 mg PO QDAY #30 tablet 03/09/17 11/09/17 2 Weeks Ago Rx ~10/26/17 Labetalol [Normodyne TAB] 300 mg PO TID #90 tablet 07/01/17 11/09/17 2 Weeks Ago Rx ~10/26/17 Pantoprazole [Protonix TAB] 40 mg PO BID #60 tablet 07/01/17 11/09/17 2 Weeks Ago Rx ~10/26/17 hydrALAZINE [Apresoline TAB] 50 mg PO Q8HR #90 tablet 07/01/17 11/09/17 2 Weeks Ago Rx ~10/26/17 Metoprolol [Lopressor TAB] 25 mg PO Q8HR #90 tablet 11/13/17 Unknown Rx NIFEdipine XL [Procardia Xl] 60 mg PO Q12HR #60 tablet 11/13/17 Unknown Rx Valsartan [Diovan] 320 mg PO QDAY #60 tablet 11/13/17 Unknown Rx HYDROcodone/APAP 7.5-325 [[place] 1 each PO Q6HR PRN #12 tablet 03/17/18 Unknown Rx 7.5/325] Indomethacin [Indocin] 50 mg RC TID #15 supp.rect 03/17/18 Unknown Rx Clindamycin [Clindamycin CAP] 300 mg PO Q8H 7 Days cap 04/11/18 Unknown Rx Colchicine 0.6 mg PO DAILY #20 capsule 04/11/18 Unknown Rx HYDROcodone/APAP 5-325 [[place] 1 each PO Q6HR PRN #12 tablet 04/11/18 Unknown Rx 5/325] Indomethacin [Indocin] 25 mg PO Q8H #14 capsule 05/12/18 Unknown Rx predniSONE [Prednisone] 50 mg PO DAILY #5 tablet 05/12/18 Unknown Rx ED Physical Exam - General Limitations: No Limitations General appearance: alert, in no apparent distress - Head Head exam: Present: atraumatic, normocephalic - Eye Eye exam: Present: EOMI - ENT ENT exam: Present: mucous membranes moist - Expanded Lower Extremity Exam Left Knee exam: Present: full ROM, tenderness, swelling Lower Leg exam: Present: swelling (chronic) Ankle exam: Present: swelling (chronic) - Neurological Exam Neurological exam: Present: alert, oriented X3 - Psychiatric Psychiatric exam: Present: normal affect, normal mood - Skin Skin exam: Present: warm, dry, intact, normal color. Absent: rash ED Course Vital Signs 05/12/18 04:17 Temperature 98.6 F Pulse Rate 99 H Respiratory 16 Rate Blood Pressure 180/110 O2 Sat by Pulse 96 Oximetry ED Medical Decision Making - Medical Decision Making Patient's been evaluated by this provider in fast track Dexamethadone 10 mg IM and Toradol 30 mg IM Will discharge patient on Indocin and prednisone taper. Discussed with patient he needs to follow up with his primary care provider for chronic disease management. Critical care attestation.: If time is entered above; I have spent that time in minutes in the direct care of this critically ill patient, excluding procedure time. ED Disposition Clinical Impression: Gout of knee Qualifiers: Gout etiology: due to renal impairment Chronicity: acute Laterality: left Qualified Code(s): M10.362 - Gout due to renal impairment, left knee Disposition: TO HOME OR SELFCARE Is pt being admited?: No Does the pt Need Aspirin: No Condition: Stable Instructions: Acute Gouty Arthritis (ED) Additional Instructions: Please take medication as prescribed. It is important free to follow up with her primary care provider to manage her chronic disease management. Prescriptions: Indomethacin [Indocin] 25 mg PO Q8H #14 capsule predniSONE [Prednisone] 50 mg PO DAILY #5 tablet Referrals: PRIMARY CARE,MD [Primary Care Provider] - 3-5 Days your,provider [Other] - 3-5 Days
[2018-05-12 06:02] VITALS: BP 178/98
== END 2018-05-12 06:07 | disposition home or self-care (01) ==
LOC: ED 01:37
DX: M10.362 Gout due to renal impairment, left knee (principal); I13.0 Hypertensive heart and chronic kidney disease with heart failure and stage 1 through stage 4 chronic kidney disease, or unspecified chronic kidney disease; E11.22 Type 2 diabetes mellitus with diabetic chronic kidney disease; N18.4 Chronic kidney disease, stage 4 (severe); I50.9 Heart failure, unspecified; Z99.2 Dependence on renal dialysis; M19.90 Unspecified osteoarthritis, unspecified site; I48.91 Unspecified atrial fibrillation; Z79.899 Other long term (current) drug therapy
CPT/HCPCS: 96372; 96374; 99282; J1100; J1885

== ENCOUNTER 2018-06-03 11:46 | Emergency (ER) | payer MEDICARE ==
--- NOTE | 2018-06-03 13:50 | Emergency Department Report ---
ED General Adult HPI - General Chief complaint: Medical Clearance Stated complaint: HOLE DIALYSIS TUBE Time Seen by Provider: 06/03/18 13:44 Source: patient Mode of arrival: Ambulatory Limitations: No Limitations - History of Present Illness Initial comments: Mr. Lema is a 32-year-old male with history of end-stage renal disease on peritoneal dialysis. He woke up this morning with leaking from his Peritoneal catheter. He realized that he had a hole in the catheter near proximal to the valve. His nurse recommended that he come to the ER. His preparation room manager is Dr. De Oliveira. He denies any fever. Denies pain. No shortness of breath. - Related Data Home Medications Medication Instructions Recorded Confirmed Last Taken Lisinopril [Prinivil] 10 mg PO DAILY 05/23/18 05/23/18 Unknown amLODIPine [Norvasc] 5 mg PO DAILY 05/23/18 05/23/18 Unknown hydroCHLOROthiazide [HCTZ] 25 mg PO BID 05/23/18 05/23/18 Unknown Previous Rx's Medication Instructions Recorded Last Taken Type Furosemide [Lasix TAB] 40 mg PO QDAY #30 tablet 03/09/17 2 Weeks Ago Rx ~10/26/17 Pantoprazole [Protonix TAB] 40 mg PO BID #60 tablet 07/01/17 2 Weeks Ago Rx ~10/26/17 hydrALAZINE [Apresoline TAB] 50 mg PO Q8HR #90 tablet 07/01/17 2 Weeks Ago Rx ~10/26/17 NIFEdipine XL [Procardia Xl] 60 mg PO Q12HR #60 tablet 11/13/17 Unknown Rx Valsartan [Diovan] 320 mg PO QDAY #60 tablet 11/13/17 Unknown Rx Colchicine 0.6 mg PO DAILY #20 capsule 04/11/18 Unknown Rx HYDROcodone/APAP 5-325 [Chelsea 1 each PO Q6HR PRN #12 tablet 04/11/18 Unknown Rx 5-325 mg TAB] Indomethacin [Indocin] 25 mg PO Q8H #14 capsule 05/12/18 Unknown Rx predniSONE [Prednisone] 50 mg PO DAILY #5 tablet 05/12/18 Unknown Rx Metoprolol [Lopressor TAB] 25 mg PO Q8HR tablet 05/24/18 Unknown Rx Nortriptyline [Pamelor] 25 mg PO QHS capsule 05/24/18 Unknown Rx Allergies Allergy/AdvReac Type Severity Reaction Status Date / Time No Known Allergies Allergy Verified 08/12/13 02:52 ED Review of Systems ROS: Stated complaint: HOLE DIALYSIS TUBE Other details as noted in HPI Comment: All other systems reviewed and negative Constitutional: denies: fever, malaise Respiratory: denies: cough Cardiovascular: denies: chest pain ED Past Medical Hx - Past Medical History Previous Medical History?: Yes Hx Hypertension: Yes Hx Congestive Heart Failure: Yes Hx Diabetes: Yes Hx Renal Disease: Yes (CKD STAGE 4, peritoneal dialysis) Hx Arthritis: Yes Hx Asthma: Yes Hx COPD: No Additional medical history: optic neuritis, AFIB - Surgical History Past Surgical History?: Yes Additional Surgical History: Recently diagnosed with optic neuritis, peritoneal dialysis - Social History Smoking Status: Never Smoker Substance Use Type: Prescribed - Medications Home Medications: Home Medications Medication Instructions Recorded Confirmed Last Taken Type Furosemide [Lasix TAB] 40 mg PO QDAY #30 tablet 03/09/17 05/23/18 2 Weeks Ago Rx ~10/26/17 Pantoprazole [Protonix TAB] 40 mg PO BID #60 tablet 07/01/17 05/23/18 2 Weeks Ago Rx ~10/26/17 hydrALAZINE [Apresoline TAB] 50 mg PO Q8HR #90 tablet 07/01/17 05/23/18 2 Weeks Ago Rx ~10/26/17 NIFEdipine XL [Procardia Xl] 60 mg PO Q12HR #60 tablet 11/13/17 05/23/18 Unknown Rx Valsartan [Diovan] 320 mg PO QDAY #60 tablet 11/13/17 05/23/18 Unknown Rx Colchicine 0.6 mg PO DAILY #20 capsule 04/11/18 05/23/18 Unknown Rx HYDROcodone/APAP 5-325 [Chelsea 1 each PO Q6HR PRN #12 tablet 04/11/18 05/23/18 Unknown Rx 5-325 mg TAB] Indomethacin [Indocin] 25 mg PO Q8H #14 capsule 05/12/18 05/23/18 Unknown Rx predniSONE [Prednisone] 50 mg PO DAILY #5 tablet 05/12/18 05/23/18 Unknown Rx Lisinopril [Prinivil] 10 mg PO DAILY 05/23/18 05/23/18 Unknown History amLODIPine [Norvasc] 5 mg PO DAILY 05/23/18 05/23/18 Unknown History hydroCHLOROthiazide [HCTZ] 25 mg PO BID 05/23/18 05/23/18 Unknown History Metoprolol [Lopressor TAB] 25 mg PO Q8HR tablet 05/24/18 Unknown Rx Nortriptyline [Pamelor] 25 mg PO QHS capsule 05/24/18 Unknown Rx ED Physical Exam - General Limitations: No Limitations General appearance: alert, in no apparent distress - Head Head exam: Present: atraumatic, normocephalic - Eye Eye exam: Present: normal appearance - ENT ENT exam: Present: mucous membranes moist - Neck Neck exam: Present: normal inspection. Absent: tenderness, meningismus - Respiratory Respiratory exam: Present: normal lung sounds bilaterally. Absent: respiratory distress, wheezes, rales, rhonchi - Cardiovascular Cardiovascular Exam: Present: regular rate, normal rhythm, normal heart sounds. Absent: systolic murmur, diastolic murmur, rubs, gallop - GI/Abdominal GI/Abdominal exam: Present: soft, normal bowel sounds, other (peritoneal catheter in place with large hole defect just proximal to connection port). Absent: distended, tenderness, guarding, rebound - Rectal Rectal exam: Present: deferred - Extremities Exam Extremities exam: Present: normal inspection - Back Exam Back exam: Present: normal inspection - Neurological Exam Neurological exam: Present: alert, oriented X3 - Psychiatric Psychiatric exam: Present: normal affect, normal mood - Skin Skin exam: Present: warm, dry, intact, normal color. Absent: rash ED Course Vital Signs 06/03/18 12:09 Temperature 98.1 F Pulse Rate 84 Respiratory 18 Rate Blood Pressure 197/126 O2 Sat by Pulse 94 Oximetry ED Medical Decision Making - Medical Decision Making Peritoneal dialysis catheter complication with large hole/defect just proximal, adjacent to connection port. . I consulted Dr. Angelo preparation room manager on-call for Dr. De Oliveira. He requested consultation with surgery for peritoneal dialysis catheter replacement. Dr. Farrar is the physician stone and plate preparer apprentice. Dr. Farrar does not perform peritoneal catheter placement. I reviewed EMR. Dr. Tyler placed the initial catheter. I have consulted Dr. Steen with [facility]. He explained to me that the catheter does not need to be replaced. However he is able to trim the catheter and replace the titanium adapter under sterile conditions in the office. Surgeon requested that I apply sterile dressing to the opening and to apply a plastic clamp. I noted that the patient did tie the tubing in a knot. Patient understands to go to the office when he was landing tomorrow for catheter repair. Critical care attestation.: If time is entered above; I have spent that time in minutes in the direct care of this critically ill patient, excluding procedure time. ED Disposition Clinical Impression: Peritoneal dialysis catheter mechanical complication Disposition: DC TO HOME OR SELFCARE Is pt being admited?: No Does the pt Need Aspirin: No Condition: Stable Instructions: Peritoneal Dialysis Catheter Care (ED) Additional Instructions: Please see Dr. Mendoza tomorrow for catheter repair. Referrals: TOM STEEN MD [Staff Physician] - 24 Hours
[2018-06-03 14:05] VITALS: BP 164/104
[2018-06-03 14:11] LABS: Calcium 6.1 mg/dL (8.4-10.2)
== END 2018-06-03 15:04 | disposition home or self-care (01) ==
LOC: ED 11:46
DX: T85.631A Leakage of intraperitoneal dialysis catheter, initial encounter (principal); I13.0 Hypertensive heart and chronic kidney disease with heart failure and stage 1 through stage 4 chronic kidney disease, or unspecified chronic kidney disease; E11.22 Type 2 diabetes mellitus with diabetic chronic kidney disease; N18.4 Chronic kidney disease, stage 4 (severe); I50.9 Heart failure, unspecified; M19.90 Unspecified osteoarthritis, unspecified site; J45.909 Unspecified asthma, uncomplicated; Z99.2 Dependence on renal dialysis
CPT/HCPCS: 36415; 80048; 99282